=== PATIENT | female | born 1935 | race Caucasian/White ===

== ENCOUNTER 2017-06-02 13:01 | Inpatient (IN) | payer OTHER, MEDICARE ==
[~2017-06-02] VITALS: Ht 154.9 cm; Wt 47.6 kg
--- NOTE | ~2017-06-02 | HC ---
[facility] [place] [address] CONSULTATION Name: CONSTANTINO LAIRD Room #: 428-P ADM IN M.R.#: [id number] Admission: 06/02/17 Attend Phys: Faustino Stapleton MD Discharge: Date of : 33 Report #: [id number] THIS REPORT FOR: //name// CC: Faustino Baird DATE OF SERVICE: 06/02/2017 PRIMARY CARE PHYSICIAN: Dr. Samuel Baird. REFERRAL PHYSICIAN: Dr. Faustino Stapleton. REASON FOR REFERRAL: Pneumonia and lung mass. HISTORY OF PRESENT ILLNESS: The patient is an 81-year-old white female who presents to the Emergency Room with progressive dyspnea. Subsequent evaluation revealed a right upper lobe infiltrate and lung density. A pulmonary consultation was requested. The patient is normally followed longitudinally by Dr. Mckeon. She is followed for COPD. The patient was in her usual state of health for the past few days, she has had increasing dyspnea on exertion, facial numbness. While in the emergency room, a CT chest angiogram was performed. This study did not show any evidence of pulmonary embolus; however, a 3 cm right upper lobe density was noted along with mild infiltrates around the density. The patient also notes weight loss over the past few months. She does not know how much. Otherwise, denies any night sweats, fever or chills, chest pain or productive cough. PAST MEDICAL HISTORY: Notable for COPD, lupus, hypertension, coronary artery disease, status post stent, history of neuropathy. PAST SURGICAL HISTORY: Include prior cataract surgery, appendectomy. ALLERGIES: Are to PENICILLIN, which causes hives, LYRICA reactions unknown, SULFA, reactions unknown, ADHESIVE TAPES causes erythema. HOME MEDICATIONS: Lists are reviewed. This includes nebulized albuterol, aspirin, nebulized Brovana twice a day, ProAir, nebulized Pulmicort twice a day, Spiriva once a day. FAMILY HISTORY: Noncontributory. [facility] [address] [place] [address] CONSULTATION Name: CONSTANTINO LAIRD Room #: 428-[facility] IN .R.#: [id number] Admission: 06/02/17 Attend Phys: Faustino Stapleton MD Discharge: Date of : 33 Report #: [id number] SOCIAL HISTORY: The patient has smoked most of her life until recently. She denies any alcohol use. REVIEW OF SYSTEMS: As mentioned above, otherwise 10-point system review negative. PHYSICAL EXAMINATION: GENERAL: She is awake, alert, in mild respiratory distress. VITAL SIGNS: Temperature is 98 degrees Fahrenheit, pulse is 100, respiratory rate is 18, blood pressure 142/70 mmHg, and saturation is 96%. HEENT: Normocephalic, atraumatic. NECK: Supple, without any lymphadenopathy or thyromegaly. CHEST: Breath sounds are fair with mild expiratory wheezes with few scattered crackles in the bases. CARDIOVASCULAR: Normal S1, S2. There is no murmurs or gallop. There is no JVD. There is no carotid bruit. Pulses are 2+/4+ bilaterally. ABDOMEN: Soft, nontender, no organomegaly or masses felt. GENITOURINARY: Deferred. RECTAL: Deferred. EXTREMITIES: There is no edema, cyanosis or clubbing. LABORATORY DATA: CT chest as mentioned above showing a 3 cm mass-like interstitial infiltrates with mild infiltrates surrounding the area located in the right upper lobe. No evidence of pulmonary embolus. Mediastinum appears to be unremarkable. MRI of the head was unremarkable other than mild to moderate chronic small vessel ischemic changes. EKG was unremarkable. Electrolytes are normal. Liver function test is mildly elevated. WBC is 13,300 without a left shift, hemoglobin 12.2, platelets are normal. Albumin 3.3. IMPRESSION: 1. Progressive dyspnea in this 81-year-old white female. CT chest shows density in the right upper lobe , mild infiltrates. She has underlying COPD. Etiology is likely related to underlying chronic obstructive pulmonary disease with exacerbation with possible pneumonia. The chest CT also shows findings concerning for lung mass. 2. COPD, severity unknown. She appears to have mild exacerbation at this time. 3. Right upper lobe density, weight loss in this patient with long history of tobacco use. Will need further workup when she is stable. 4. History of lupus. 5. Coronary artery disease. 6. Hypertension. RECOMMENDATION AND DISCUSSION: I agree with current treatment plans including broad spectrum antibiotics, bronchodilators and corticosteroids. [address] [address] CONSULTATION Name: CONSTANTINO LAIRD Room #: 428-P ADM IN M.R.#: [id number] Admission: 06/02/17 Attend Phys: Faustino Stapleton MD Discharge: Date of : 33 Report #: [id number] For now, I would recommend treating for presumed pneumonia. Would then recommend followup chest CT in approximately 2 weeks. If the abnormality persist, will proceed with workup at that time. This can be done as an outpatient. Discussed the above findings with the patient. She voices understanding. Thank you for this consultation. <ELECTRONICALLY SIGNED> By: Manuelito Harper MD 06/06/17 1418 1722 99 Manuelito Harper MD /nt
--- NOTE | ~2017-06-02 | EKG ---
[address] [address] ELECTROCARDIOGRAM REPORT Name: CONSTANTINO LAIRD Room #: 428-[facility] IN M.R.#: [id number] Admission: 06/02/17 Attend Phys: Faustino Stapleton MD Discharge: 06/08/17 Date of : 33 Report #: [id number] THIS REPORT FOR: //name// [facility] Test Date: 2017-06-07 Test Time: 06:34:37 Pat Name: CONSTANTINO LAIRD Department: Room: 428 Gender: F Countersinker: : 1935 Requested By: Rosette Frazier Order Number: [id number] MD: Greg Worrell Measurements Intervals [place] Rate: 83 P: 67 TN: 66 QRS: 60 QRSD: 112 T: 55 QT: 372 QTc: 437 Interpretive Statements Sinus rhythm Short TN interval Compared to ECG 06/02/2017 13:35:17 Sinus rhythm is replaced atrial fibrillation Electronically Signed On 06-08-2017 18:12:38 CDT by Greg Worrell [email or web address] <ELECTRONICALLY SIGNED> By: Greg Worrell MD, [facility] 06/08/17 1812 0634 Greg Worrell MD, [facility] /EPI
--- NOTE | ~2017-06-02 | EKG ---
[address] [address] ELECTROCARDIOGRAM REPORT Name: CONSTANTINO LAIRD Room #: 428-P ADM IN M.R.#: [id number] Admission: 06/02/17 Attend Phys: Faustino Stapleton MD Discharge: Date of : 33 Report #: [id number] THIS REPORT FOR: //name// [facility] ED Test Date: 2017-06-02 Test Time: 13:35:17 Pat Name: CONSTANTINO LAIRD Department: Room: [facility] Gender: F Content Coordinator: BERNARDO : 1935 Requested By: Jay Pleitez Order Number: [id number] MD: Greg Worrell Measurements Intervals [place] Rate: 106 P: 60 NH: 114 QRS: 70 QRSD: 90 T: 40 QT: 327 QTc: 435 Interpretive Statements Sinus tachycardia Otherwise no significant abnormality Compared to ECG 09/04/2016 11:08:41 No significant change was found Electronically Signed On 06-03-2017 8:31:51 CDT by Greg Worrell [email or web address] <ELECTRONICALLY SIGNED> By: Greg Worrell MD, [facility] 06/03/17 0831 1335 Greg Worrell MD, [facility] /EPI
--- NOTE | ~2017-06-02 | EKG ---
[address] [address] ELECTROCARDIOGRAM REPORT Name: CONSTANTINO LAIRD Room #: 428-P ADM IN M.R.#: [id number] Admission: 06/02/17 Attend Phys: Faustino Stapleton MD Discharge: Date of : 33 Report #: [id number] THIS REPORT FOR: //name// [facility] Test Date: 2017-06-06 Test Time: 12:48:56 Pat Name: CONSTANTINO LAIRD Department: Room: 428 Gender: F Mail Messenger: INGA : 1935 Requested By: Faustino Stapleton Order Number: [id number] MD: Greg Worrell Measurements Intervals [place] Rate: 108 P: MT: QRS: 46 QRSD: 98 T: 15 QT: 308 QTc: 413 Interpretive Statements Atrial fibrillation Compared to ECG 06/02/2017 13:35:17 Sinus tachycardia no longer present Electronically Signed On 06-07-2017 8:48:38 CDT by Greg Worrell [email or web address] <ELECTRONICALLY SIGNED> By: Greg Worrell MD, [facility] 06/07/17 0848 1248 1248 Greg Worrell MD, [facility] /EPI
--- NOTE | ~2017-06-02 | HC ---
[facility] [address] CONSULTATION Name: CONSTANTINO LAIRD Room #: 428-P ADM IN M.R.#: [id number] Admission: 06/02/17 Attend Phys: Faustino Stapleton MD Discharge: Date of : 33 Report #: [id number] THIS REPORT FOR: //name// CC: Faustino Baird HISTORY OF PRESENT ILLNESS: The patient is a very pleasant 81-year-old female who I have been asked to see for further evaluation of solid dysphagia. She presented to the hospital with progressive dyspnea and was found to have a pulmonary mass and pneumonia. She is not on oxygen now and is doing well. She describes significant difficulty swallowing over the course of the last 3-4 weeks. She denies significant gastroesophageal reflux symptoms. She has had some new constipation. She has not had an upper endoscopy for over 20 years and has never had a colonoscopy. PAST MEDICAL HISTORY: Notable for COPD, lupus, hypertension, coronary artery disease and neuropathy. PAST SURGICAL HISTORY: She has had cataract surgery and appendectomy. ALLERGIES: She is allergic to PENICILLIN, LYRICA, SULFA, ADHESIVE TAPES. MEDICATIONS: Are detailed in the chart. FAMILY HISTORY: Noncontributory. SOCIAL HISTORY: Noncontributory. She is a lifelong smoker. REVIEW OF SYSTEMS: Negative for weakness or fatigue. She denies head, eyes, ears, nose or throat complaints. Denies chest pain, chest palpitation, chest pressure, cough, shortness of breath, wheezing, genitourinary, musculoskeletal or neuropsychiatric complaints otherwise. PHYSICAL EXAMINATION: GENERAL: The patient is afebrile. VITAL SIGNS: Stable. HEENT: Nonicteric. NECK: No JVD, thyromegaly or bruits. CARDIOVASCULAR: Regular. LUNGS: Diminished breath sounds throughout with right apical wheezing and diminished breath sounds. ABDOMEN: Soft, nondistended, nontender, normoactive bowel sounds. No hepatosplenomegaly. No stigmata of chronic liver disease. No abnormal masses or bruits. RECTAL: Not performed. NEUROLOGIC: Not performed. EXTREMITIES: Not performed. [facility] [address] [place] [address] CONSULTATION Name: CONSTANTINO LAIRD Room #: 428-P [facility] IN M.R.#: [id number] Admission: 06/02/17 Attend Phys: Faustino Stapleton MD Discharge: Date of : 33 Report #: [id number] LABORATORY DATA: Pertinent labs were reviewed and include white count 13.3, hemoglobin 12.2, MCV and RDW are normal, platelet count 343. INR is normal. Serum chemistry notable for glucose 166. Liver tests have not been evaluated. IMAGING STUDIES: X-ray reveals right upper lobe mass versus infiltrate. CT confirmed this with suspicion of mass. In summary, the patient has progressive dysphagia, most likely structural in origin. We will proceed with upper endoscopy on Tuesday. I appreciate the opportunity to participate in her care. <ELECTRONICALLY SIGNED> By: Ravin Crandall MD 06/05/17 1241 1202 1228 Ravin Crandall MD /nt
[2017-06-02 13:01] VITALS: BP 123/60
[~2017-06-02 13:01] MED LIST: ACETAMINOPHEN325 M1 PO; ALBUTEROL2.5 MG/0.1 INH; ALEVE220 M1 PO; ALEVE220 MG PO; ASPIRIN EC81 M1 PO; ASPIRIN81 M2 PO; B-100 COMPLEX1 EAC1 PO; BENADRYL25 MG PO; BROVANA15 MCG/2 M INH; BUBBLES THE FI1 EAC1 MC; BUDESONIDE0.5 MG/2 M IH; CALCIUM 500+D1 EAC2 PO; CALCIUM 600 +1 EAC1 PO; COLACE100 MG PO; COQ-10100 MG PO; CYMBALTA60 MG PO; DIOVAN HCT 3201 EAC1 PO; DIOVAN320 MG PO; DOXYCYCLINE 10100 MG PO; FISH OIL 1,0001 EAC5 PO; FLAGYL500 MG PO; FLAX SEED OIL1000 MG PO; FOLIC ACID1 MG PO; GARLIC OIL1 EAC1 PO; GARLIC OIL1 EACH PO; HYDROCODON-ACE1 EAC7 PO; KLOR-CON 1010 MEQ PO; LEVAQUIN 500 M500 M1 PO; LEVAQUIN 500 M500 M2 PO; LIPITOR80 MG PO; MAGNESIUM250 M1 PO; MEDROLDOSEPACK PO; MUCINEX600 MG PO; NORCO 5-325 TA1 EACH PO; NORVASC 5 MG TAB5 MG PO; NORVASC5 MG PO; PEPCID AC20 MG PO; PLAVIX 75 MG TA75 M1 PO; PREDNISONE 10 M10 M1 PO; PREDNISONE 10 M10 MG PO; PREDNISONE 20 M20 M1 PO; PREDNISONE 20 M20 MG PO; PROAIR HFA8.5 GM INH; PULMICORT1 MG/2 ML INH; ROBAXIN 750 MG750 M1 PO; SINGULAIR 10 MG10 M1 PO; SPIRIVA INH; TOBRADEX EYE DRO5 ML OP; TOPROL XL25 MG PO; TRAMADOL 50 MG50 MG PO; TUSSIONEX PENNKI1 ML GT; VENTOLIN17 GM INH; VIBRAMYCIN 100100 MG PO; VITAMIN E100 UNI2 PO; VITAMINC500 PO; ZOFRAN ODT4 MG PO
[2017-06-02 13:35] LABS: HEMATOCRIT 37.1 % (37.0-47.0); HEMOGLOBIN 12.2 gm/dL (12.0-15.0); MCH 27.3 pg (26.0-34.0); MCHC 32.8 g/dL (28.0-37.0); MCV 83.3 fL (80.0-100.0); PLATELET COUNT 343 thou/uL (150-400); RBC 4.46 mil/uL (4.20-5.00); RDW 14.1 % (10.5-14.5); WBC 13.3 thou/uL (4.0-11.0)
[2017-06-02 13:36] LABS: MANUAL DIFF YES
[2017-06-02 13:46] LABS: CALCIUM 9.1 mg/dL (8.5-10.1); CREATININE 0.6 mg/dL (0.6-1.0); POTASSIUM 4.1 mmol/L (3.5-5.1)
[2017-06-02 13:48] LABS: PROTIME 10.4 Seconds (9.3-11.4)
[2017-06-02 13:55] LABS: ALBUMIN 3.3 g/dL (3.4-5.0); TOTAL BILIRUBIN 0.4 mg/dL (<0.1-1.0); TOTAL PROTEIN 6.6 g/dL (6.4-8.2); TROPONIN-I 0.1 ng/mL (<0.04-0.07)
[2017-06-02 14:23] LABS: PLATELET ESTIMATE NORMAL; TOTAL CELL COUNT 100
[2017-06-02] MEDS ORDERED: GABAPENTIN 100100 MG PO (14:34)
[2017-06-02 16:13] VITALS: BP 142/70
[2017-06-02 17:37] VITALS: BP 142/70
[2017-06-02 19:30] VITALS: BP 131/60
[2017-06-03 04:00] VITALS: BP 134/68
[2017-06-03 06:06] LABS: HEMATOCRIT 33.7 % (37.0-47.0); MCH 27.3 pg (26.0-34.0); MCHC 32.7 g/dL (28.0-37.0); MCV 83.5 fL (80.0-100.0); RBC 4.03 mil/uL (4.20-5.00); RDW 14.5 % (10.5-14.5); WBC 8.9 thou/uL (4.0-11.0)
[2017-06-03 06:38] LABS: CALCIUM 8.5 mg/dL (8.5-10.1); CREATININE 0.6 mg/dL (0.6-1.0); POTASSIUM 4.3 mmol/L (3.5-5.1)
[2017-06-03 07:34] VITALS: BP 141/78
[2017-06-03 15:10] LABS: URINE BILIRUBIN NEGATIVE (Negative); URINE BLOOD 1+ (Negative); URINE COLOR YELLOW; URINE GLUCOSE-RANDOM* NEGATIVE (Negative); URINE KETONES TRACE (Negative); URINE NITRITE NEGATIVE (Negative); URINE PROTEIN (DIPSTICK) NEGATIVE (Negative); URINE SPECIFIC GRAVITY <= 1.005 (1.003-1.035); URINE UROBILINOGEN 0.2 E.U./dl (0.2-1.0)
[2017-06-03 15:30] LABS: BACTERIA None Seen /HPF (None Seen); CASTS None Seen /LPF (None Seen); CRYSTALS None Seen /LPF (None Seen); SQUAMOUS None Seen /LPF (0-3); URINE RBC 0-2 Rare /HPF (0-2); URINE WBC None Seen /HPF (0-5)
[2017-06-03 16:08] VITALS: BP 131/62
[2017-06-03 19:52] VITALS: BP 148/80
[2017-06-04 02:06] VITALS: BP 148/80
[2017-06-04 04:15] VITALS: BP 153/80
[2017-06-04 08:25] VITALS: BP 151/72
[2017-06-04 16:33] VITALS: BP 131/74
[2017-06-04 19:44] VITALS: BP 128/71
[2017-06-04 22:31] VITALS: BP 128/71
[2017-06-05 03:41] VITALS: BP 144/79
[2017-06-05 07:27] VITALS: BP 157/80
[2017-06-05 15:11] VITALS: BP 144/84
[2017-06-05 18:30] VITALS: BP 150/81
[2017-06-06 04:55] VITALS: BP 158/88
[2017-06-06 08:15] VITALS: BP 149/80
[2017-06-06 08:26] LABS: HEMATOCRIT 35.5 % (37.0-47.0); HEMOGLOBIN 11.6 gm/dL (12.0-15.0); MANUAL DIFF YES; MCHC 32.8 g/dL (28.0-37.0); MCV 82.2 fL (80.0-100.0); PLATELET COUNT 368 thou/uL (150-400); RBC 4.31 mil/uL (4.20-5.00); RDW 14.2 % (10.5-14.5)
[2017-06-06 08:32] LABS: CALCIUM 8.4 mg/dL (8.5-10.1); CREATININE 0.6 mg/dL (0.6-1.0); MAGNESIUM 1.9 mg/dL (1.8-2.4); POTASSIUM 3.6 mmol/L (3.5-5.1)
[2017-06-06 08:55] LABS: ABSOLUTE NEUTROPHILS 12.5 thou/uL (1.4-8.2); TOTAL CELL COUNT 100
[2017-06-06 08:56] LABS: ANISOCYTOSIS SLIGHT; OVALOCYTES FEW; POIKILOCYTOSIS SLIGHT
[2017-06-06 15:50] VITALS: BP 128/71
[2017-06-06 21:15] VITALS: BP 14/84
[2017-06-07 03:17] VITALS: BP 148/60
[2017-06-07 05:41] LABS: HEMATOCRIT 37.3 % (37.0-47.0); HEMOGLOBIN 12.3 gm/dL (12.0-15.0); MCH 27.2 pg (26.0-34.0); MCHC 32.8 g/dL (28.0-37.0); MCV 82.8 fL (80.0-100.0); PLATELET COUNT 369 thou/uL (150-400); RBC 4.51 mil/uL (4.20-5.00); RDW 14.6 % (10.5-14.5); WBC 14.9 thou/uL (4.0-11.0)
[2017-06-07 05:42] LABS: MANUAL DIFF YES
[2017-06-07 05:48] LABS: CALCIUM 7.9 mg/dL (8.5-10.1); CREATININE 0.6 mg/dL (0.6-1.0); MAGNESIUM 1.6 mg/dL (1.8-2.4); POTASSIUM 3.1 mmol/L (3.5-5.1)
[2017-06-07 07:41] VITALS: BP 151/70
[2017-06-07 07:49] LABS: ABSOLUTE NEUTROPHILS 13.9 thou/uL (1.4-8.2); TOTAL CELL COUNT 100
[2017-06-07 07:51] LABS: ANISOCYTOSIS SLIGHT; OVALOCYTES OCCASIONAL; POIKILOCYTOSIS SLIGHT
[2017-06-07] MEDS ORDERED: METOPROLOL SUCC50 MG PO (12:56)
[2017-06-07 16:27] VITALS: BP 159/88
[2017-06-07 20:56] VITALS: BP 129/67
[2017-06-08 04:00] VITALS: BP 161/85
[2017-06-08 08:08] VITALS: BP 150/81
[2017-06-08] MEDS ORDERED: ELIQUIS2.5 MG PO (08:45)
[2017-06-08] MEDS ORDERED: LEVAQUIN 500 M500 M1 PO (08:45)
[2017-06-08] MEDS ORDERED: PACERONE 200 M200 M1 PO (08:45)
[2017-06-08 13:02] VITALS: BP 150/81
== END 2017-06-08 17:34 | disposition home or self-care (01) | DRG 189 ==
LOC: ER 13:01 → 4E 16:21
PROVIDERS: Internal Medicine; Nurse Practitioner; Physician Assistant
PROC: 0DJ08ZZ Inspection of Upper Intestinal Tract, Via Natural or Artificial Opening Endoscopic (ICD-10-PCS; principal; 2017-06-06)
DX: J96.01 Acute respiratory failure with hypoxia (principal); J18.9 Pneumonia, unspecified organism; E43 Unspecified severe protein-calorie malnutrition; J44.1 Chronic obstructive pulmonary disease with (acute) exacerbation; B37.0 Candidal stomatitis; J44.0 Chronic obstructive pulmonary disease with (acute) lower respiratory infection; Z68.1 Body mass index [BMI] 19.9 or less, adult; L93.0 Discoid lupus erythematosus; I10 Essential (primary) hypertension; Z96.1 Presence of intraocular lens; E83.42 Hypomagnesemia; I25.10 Atherosclerotic heart disease of native coronary artery without angina pectoris; R13.10 Dysphagia, unspecified; E78.5 Hyperlipidemia, unspecified; I71.4 Abdominal aortic aneurysm, without rupture; E78.00 Pure hypercholesterolemia, unspecified; I48.0 Paroxysmal atrial fibrillation; I73.9 Peripheral vascular disease, unspecified; Z95.5 Presence of coronary angioplasty implant and graft; Z98.41 Cataract extraction status, right eye; Z90.49 Acquired absence of other specified parts of digestive tract; Z79.899 Other long term (current) drug therapy; Z88.0 Allergy status to penicillin; Z88.2 Allergy status to sulfonamides; Z88.8 Allergy status to other drugs, medicaments and biological substances; Z87.891 Personal history of nicotine dependence; Z82.49 Family history of ischemic heart disease and other diseases of the circulatory system; Z99.81 Dependence on supplemental oxygen
CPT/HCPCS: 10183; 62110; 62900; 70005

== ENCOUNTER 2017-06-14 12:19 | Inpatient (IN) | payer OTHER, MEDICARE ==
[~2017-06-14] VITALS: Ht 154.9 cm; Wt 50.6 kg
--- NOTE | ~2017-06-14 | P ---
[facility] [place] [address] PROCEDURE REPORT Name: CONSTANTINO LAIRD Room #: 464-P [facility] IN M.R.#: [id number] Admission: 06/14/17 Attend Phys: Maricruz Rosenberg Discharge: Date of : 33 Report #: [id number] THIS REPORT FOR: //name// CC: Maricruz Baird MD BRIEF HISTORY: The patient is an 81-year-old woman with history of dysphagia. She does have a history of systemic lupus erythematosus. She had been previously evaluated with an upper endoscopy and no strictures were seen. A video swallow revealed difficulty with passing food through the upper esophageal sphincter. It is noted she has had neck surgery and hardware in her neck, which potentially maybe impinging on the esophagus. PREOPERATIVE DIAGNOSIS: Persistent dysphagia. POSTOPERATIVE DIAGNOSIS: Dysphagia. MEDICATIONS: Deep sedation with propofol per anesthesia. SPECIMEN: None. ESTIMATED BLOOD LOSS: None. PROCEDURE: EGD and Olivera dilation of the esophagus. FINDINGS: Prior to propofol sedation, procedure of upper endoscopy and dilation were discussed with the patient as well as potential risks, benefits, and complications. She indicates she understands and desires to proceed. With the patient in left lateral decubitus position, the [employer] video endoscope was inserted in the cervical esophagus under direct vision without difficulty. Examination of this organ through its entire length revealed normal esophageal mucosa, specifically I could not see any impingement on the esophagus in particular in the region of the cricopharyngeus of the upper esophagus. No extrinsic effect was noted. Examination of the esophagus through its entire length revealed normal mucosa. The squamocolumnar junction was inspected and noted to be unremarkable. No strictures or mass lesions were seen. A significant hiatus hernia was not seen. The scope was advanced into the stomach, which was examined on end view as well as retroflexed views. No mucosal abnormalities were seen. Upon retroflexion, no mass lesions were seen. The pylorus, duodenal bulb, and postoperative sweep were all inspected and noted to be unremarkable. At that point, the scope was slowly withdrawn and careful circumferential views confirmed the above findings. The patient tolerated the procedure well. We subsequently dilated the patient initially with passage of 50-[place] Olivera [facility] [address] [place] [address] PROCEDURE REPORT Name: CONSTANTINO LAIRD Room #: 464-[facility] IN .R.#: [id number] Admission: 06/14/17 Attend Phys: Maricruz Rosenberg Discharge: Date of : 33 Report #: [id number] dilator. There was no resistance. We took a second look with the scope and no mucosal abnormalities were seen in particular no tearing was seen. We then passed a 52 Olivera dilator and again took another look and no mucosal abnormalities were seen. There was no evidence of mucosal tearing. We then did the same with a 54 and took another look and again no mucosal tears were seen. The dilator was passed with relative ease. It was felt that this should be an adequate point of dilation for the patient. Scope was withdrawn. The patient tolerated the procedure well. DISPOSITION: The patient with persistent dysphagia and on video swallow appears to be have difficult with upper esophageal sphincter, dilation was suggestive. She had a Dobhoff tube at this point in time. We will follow up with the patient. We will have her resume her diet. If she continues to have difficulty, further evaluation such as esophageal manometry and potentially even supportive care with a PEG tube placement may be needed. <ELECTRONICALLY SIGNED> By: Stephen Gutierrez MD 06/21/17 1547 1145 1314 Stephen Gutierrez MD /nt
--- NOTE | ~2017-06-14 | HC ---
[facility] [place] [address] CONSULTATION Name: CONSTANTINO LAIRD Room #: 464-P ADM IN M.R.#: [id number] Admission: 06/14/17 Attend Phys: Maricruz Rosenberg Discharge: Date of : 33 Report #: [id number] THIS REPORT FOR: //name// CC: Maricruz Rosenberg Samuel Box DATE OF SERVICE: 06/21/2017 HISTORY OF PRESENT ILLNESS: The patient is an 81-year-old white female with history of COPD, lupus, hypertension, admitted with swallowing problems, numbness both sides of her face. She was thought to have aspiration pneumonia. Workup revealed a 3 cm right upper lobe mass. CT of the head was negative. She does have atrial fibrillation. She was noted to have dysphagia and an esophageal stricture and underwent EGD with dilatation on June 20. She feels that the dilatation has helped her swallowing. She was noted to initially have syncope upon admission, was thought to have syncope probably secondary to sepsis. She had paroxysmal atrial fibrillation, ibwkp-ha-rxwfvnl respiratory failure. She has severe protein-calorie malnutrition and did have the Dobhoff initially prior to the EGD with dilatation. She has medical complexity with generalized debilitation and we are seeing her in rehabilitation medicine consultation. PAST MEDICAL HISTORY: Includes lupus, hypertension, cardiac stent, neuropathy, abdominal aortic aneurysm, hyperlipidemia, COPD. PAST SURGICAL HISTORY: Tonsillectomy, tubal ligation, appendectomy. MEDICATIONS: Please see the full medication listing. HABITS: Former smoker, quit greater than a year ago. Past history of ETOH usage. SOCIAL HISTORY: House, alone, 2 steps in, 4 inside. ALLERGIES: PENICILLIN, PREGABALIN, SULFA. REVIEW OF SYSTEMS: Feels that her swallowing is improved. No current complaints of chest pain, shortness of breath or abdominal discomfort. She has some decreased distal sensation consistent with her neuropathy. PHYSICAL EXAMINATION: GENERAL: An 81-year-old slender white female in no obvious distress. VITAL SIGNS: Last recorded temperature is 98.1, pulse 98, respirations 16, blood pressure 108/55. Two 2 liters nasal prong O2. NEUROLOGIC: Facies are symmetric. Functional range of motion of both upper extremities, strength is grade 4- to 3+/5, DTRs are trace to 1. [address] [address] CONSULTATION Name: CONSTANTINO LAIRD Room #: 464[facility] IN M.R.#: [id number] Admission: 06/14/17 Attend Phys: Maricruz Rosenberg Discharge: Date of : 33 Report #: [id number] extremities, no focal calf swelling, functional range of motion strength is grade 4-/5. Tone appeared to be intact. She has decreased distal sensation of her distal lower extremities. She is sit to stand, contact guard assistance. She has been utilizing 4 liters while up with therapy. Gait has been up to 130 feet contact guard with front-wheeled walker. She does need min assist to get off the low toilet per OT. ASSESSMENT: An 81-year-old white female with the following problems: 1. Medical complexity with generalized debilitation. 2. Syncope secondary to probable sepsis. 3. Dtjpj-iz-oimiidq respiratory failure. 4. Paroxysmal atrial fibrillation. 5. Lung mass with Pulmonary following. 6. Severe protein calorie malnutrition with dysphagia, now status post EGD with dilatation, June 20. 7. Hypertension. 8. Hypercholesterolemia. 9. Abdominal aortic aneurysm. PLAN: Therapies are working with her on trying to maximize her functional independence with mobility and ADLs. We are assessing her for a potential acute in-hospital inpatient rehabilitation stay. We will continue to follow with you. Thank you for asking us to assist in this patient's care. By: 1056 1155 Kt Avery MD /nt
--- NOTE | ~2017-06-14 | HC ---
[facility] [place] [address] CONSULTATION Name: CONSTANTINO LAIRD Room #: 464-P ADM IN M.R.#: [id number] Admission: 06/14/17 Attend Phys: Maricruz Rosenberg Discharge: Date of : 33 Report #: [id number] THIS REPORT FOR: //name// CC: Maricruz Rosenberg Samuel Box REASON FOR CONSULTATION: I was asked to evaluate concerning syncopal episode and right lung pulmonary infiltrate. HISTORY OF PRESENT ILLNESS: The patient is an 81-year-old with COPD, systemic lupus erythematosus and hypertension. She was hospitalized this past week with right upper lobe pulmonary infiltrate. She has esophageal stenosis and it was suspected that she had aspirated in this region. Unclear if she may have malignancy as well, but the plan was to stabilize the patient and then proceed with EGD for dilatation of her esophagitis. Plan was also to give her antibiotics during this time and to follow up her chest x-rays to see if there is improvement. While at home on Levaquin for her antibiotic coverage, she was taking a shower with home health aide and had a syncopal episode. She felt nauseated and bit lightheaded for several second and then found herself on the bathroom floor. No gross injuries were identified. She was brought into the Emergency Room where O2 saturation was 87% and she was tachycardic. Chest x-ray showed no significant change in the right upper lobe infiltrate. Chest x-ray showed no change in her right upper lobe infiltrate. She was kept on IV antibiotic therapy and transferred to the Intensive Care Unit. Subsequently, she has improved, still only to take liquids spine mouth. She has had cough with clear sputum. No chest pain and no further dysrhythmias identified. ALLERGIES: PENICILLIN, ADHESIVE TAPE, PREGABALIN, SULFA. MEDICATIONS: As noted on her MAR including vancomycin and cefepime. She was on dopamine drip initially, then Levaquin, now off vasopressors. PAST MEDICAL HISTORY: Coronary artery disease, aortic aneurysm, carotid artery disease, hypertension, hyperlipidemia, COPD, paroxysmal atrial fibrillation, cataract extraction, sinus surgery, tonsillectomy. FAMILY HISTORY: Coronary artery disease. SOCIAL HISTORY: Past smoker. No significant alcohol intake. REVIEW OF SYSTEMS: She denies any other , joint or skin issues. PHYSICAL EXAMINATION: VITAL SIGNS: Afebrile and hemodynamically stable. She is on 4 liters of oxygen per nasal cannula. GENERAL: She is sitting up in her chair. She had good urine output. She was conversant, alert and oriented. [address] [address] CONSULTATION Name: CONSTANTINO LAIRD Room #: [facility] IN M.R.#: [id number] Admission: 06/14/17 Attend Phys: Maricruz Rosenberg Discharge: Date of : 33 Report #: [id number] HEENT: Unremarkable. NECK: Supple, no adenopathy. LUNGS: Subsequently clear. HEART: Regular, without appreciable murmur, gallop or rub. ABDOMEN: Soft, nontender, no hepatosplenomegaly or mass. EXTREMITIES: No peripheral edema. NEUROLOGIC: Normal. LABORATORY STUDIES: Chest x-ray, right upper lobe pulmonary infiltrate appears more prominent than her last film last week. Sputum culture from June 03 showed normal marcio, I am awaiting cultures today. Sodium 141, potassium 4.0, bicarbonate 30, creatinine 0.4. Hemoglobin 8.8, white count 17.9, platelet count 283,000. IMPRESSION: An 81-year-old with underlying chronic obstructive pulmonary disease, atrial fibrillation, had a syncopal episode, I suspect a component of vasogenic disease considering she was in the shower, became nauseated and lightheaded before her syncopal episode. Still could not yet rule out dysrhythmia. Now with persistent right upper lobe infiltrate with her esophageal stenosis. I would expect this to be an aspiration pneumonia. I have discussed with Pulmonary Medicine and Internal Medicine. PLAN: Will be to continue IV antibiotic therapy and repeat her sputum culture. We will await gastroenterology follow up for esophageal dilatation and proceed from there. We will need repeat imaging within the next several weeks to ensure clearance of this infiltrate. If not, we will need a bronchoscopy with biopsy. <ELECTRONICALLY SIGNED> By: Mu Antoine MD 06/16/17 0823 1256 1337 Mu Antoine MD /nt
--- NOTE | ~2017-06-14 | HC ---
[facility] [place] [address] CONSULTATION Name: CONSTANTINO LAIRD Room #: 464-P ADM IN M.R.#: [id number] Admission: 06/14/17 Attend Phys: Maricruz Rosenberg Discharge: Date of : 31 Report #: [id number] THIS REPORT FOR: //name// CC: Maricruz Baird DATE OF SERVICE: 06/21/2017 ADDENDUM The patient notes the history of peripheral neuropathy was diagnosed approximately [address] Baird in Rheumatology. She does not have a history of diabetes and was told that it was of an uncertain etiology. She was tried on Lyrica, but had problems with an allergic reaction. She has issues with numbness and weakness of both lower extremities with the left little more involved than the right. She also has difficulty with sit to stand transfers, especially from lower surfaces. The patient notes history of O2 dependence for which she utilizes oxygen at night and p.r.n. during the day. With this in mind, would change her initial rehab diagnosis to an idiopathic peripheral neuropathy with medical complexity and generalized debilitation being her second diagnoses. By: [id number] [id number] Kt Avery MD /nt
--- NOTE | ~2017-06-14 | EKG ---
[address] [address] ELECTROCARDIOGRAM REPORT Name: CONSTANTINO LAIRD Room #: 464-P ADM IN M.R.#: [id number] Admission: 06/14/17 Attend Phys: Maricruz Rosenberg Discharge: Date of : 33 Report #: [id number] THIS REPORT FOR: //name// [facility] ED Test Date: 2017-06-14 Test Time: 12:33:29 Pat Name: CONSTANTINO LAIRD Department: Room: 464 Gender: F Intermediate Accountant: [id number] : 1935 Requested By: Nancy Yang Order Number: [id number] MD: Thomas Hamilton Measurements Intervals [place] Rate: 72 P: 58 [place]: 129 QRS: 67 QRSD: 98 T: 64 QT: 431 QTc: 472 Interpretive Statements Sinus rhythm Compared to ECG 06/07/2017 06:34:37 Short [place] interval no longer present Electronically Signed On 06-19-2017 21:41:10 CDT by Thomas Hamilton [email or web address] <ELECTRONICALLY SIGNED> By: Thomas Hamilton MD 06/19/17 2141 1233 1233 Thomas Hamilton MD /DEDRICK
[~2017-06-14 12:19] MED LIST changes: +ELIQUIS2.5 MG PO; +GABAPENTIN 100100 MG PO; +METOPROLOL SUCC50 MG PO; +PACERONE 200 M200 M1 PO
[2017-06-14 12:20] VITALS: BP 119/51
[2017-06-14 12:39] LABS: HEMATOCRIT 30.5 % (37.0-47.0); MCH 27.5 pg (26.0-34.0); MCHC 32.9 g/dL (28.0-37.0); MCV 83.8 fL (80.0-100.0); PLATELET COUNT 325 thou/uL (150-400); RBC 3.64 mil/uL (4.20-5.00); RDW 14.5 % (10.5-14.5); WBC 22.3 thou/uL (4.0-11.0)
[2017-06-14 12:40] LABS: MANUAL DIFF YES
[2017-06-14 12:46] LABS: CALCIUM 8.4 mg/dL (8.5-10.1); CREATININE 0.8 mg/dL (0.6-1.0); POTASSIUM 3.2 mmol/L (3.5-5.1)
[2017-06-14 12:55] LABS: ALBUMIN 2.4 g/dL (3.4-5.0); TOTAL BILIRUBIN 0.6 mg/dL (<0.1-1.0); TOTAL PROTEIN 5.7 g/dL (6.4-8.2); TROPONIN-I 0.05 ng/mL (<0.04-0.07)
[2017-06-14 13:04] LABS: ABSOLUTE NEUTROPHILS 20.5 thou/uL (1.4-8.2); PLATELET ESTIMATE NORMAL; TOTAL CELL COUNT 100
[2017-06-14 14:45] LABS: URINE BILIRUBIN NEGATIVE (Negative); URINE BLOOD NEGATIVE (Negative); URINE COLOR YELLOW; URINE GLUCOSE-RANDOM* NEGATIVE (Negative); URINE KETONES TRACE (Negative); URINE NITRITE NEGATIVE (Negative); URINE PROTEIN (DIPSTICK) 1+ (Negative)
[2017-06-14 14:54] LABS: BACTERIA 1-9 Few /HPF (None Seen); CASTS None Seen /LPF (None Seen); CRYSTALS None Seen /LPF (None Seen); SQUAMOUS 0-3 Few /LPF (0-3); URINE RBC None Seen /HPF (0-2); URINE WBC None Seen /HPF (0-5)
[2017-06-14 17:18] LABS: HEMATOCRIT 26.3 % (37.0-47.0); HEMOGLOBIN 8.7 gm/dL (12.0-15.0)
[2017-06-14 17:29] VITALS: BP 125/53
[2017-06-14 17:48] VITALS: BP 183/128
[2017-06-14 19:05] VITALS: BP 127/56
[2017-06-15 01:11] LABS: ABG SAMPLE TYPE ARTERIAL; BE(vivo) 0.3 mmol/L (-2 to +3); LACTATE 0.78 mmol/L (0.5-2.0); O2(CT) 13.6 mL/dL (15.0-23.0); O2Hb 95.6 % (92.0-98.0); PCO2 40.7 mmHg (35.0-45.0); PO2 93.9 mmHg (80.0-100.0); pH 7.406 (7.360-7.450); sO2 97.2 % (92.0-98.0); tCO2 26.2 mmol/L (24.0-30.0)
[2017-06-15 01:12] LABS: STICK SITE R.BRACHIAL
[2017-06-15 05:31] LABS: HEMATOCRIT 26.9 % (37.0-47.0); HEMOGLOBIN 8.8 gm/dL (12.0-15.0); MCH 27.5 pg (26.0-34.0); MCHC 32.9 g/dL (28.0-37.0); MCV 83.5 fL (80.0-100.0); RBC 3.22 mil/uL (4.20-5.00); WBC 17.9 thou/uL (4.0-11.0)
[2017-06-15 05:38] LABS: CALCIUM 7.5 mg/dL (8.5-10.1); CREATININE 0.4 mg/dL (0.6-1.0)
[2017-06-15 05:41] LABS: PHOSPHORUS 2.8 mg/dL (2.5-4.9)
[2017-06-15 12:00] VITALS: BP 98/49
[2017-06-15 13:00] VITALS: BP 104/49
[2017-06-15 13:30] VITALS: BP 119/48
[2017-06-15 15:37] VITALS: BP 115/47
[2017-06-15 19:02] VITALS: BP 121/68
[2017-06-16 01:08] LABS: HIV ANTIBODY Non Reactive (Non Reactive)
[2017-06-16 05:24] VITALS: BP 115/53
[2017-06-16 06:34] LABS: HEMATOCRIT 23.5 % (37.0-47.0); HEMOGLOBIN 7.7 gm/dL (12.0-15.0); MCH 27.5 pg (26.0-34.0); MCHC 32.9 g/dL (28.0-37.0); MCV 83.6 fL (80.0-100.0); RBC 2.82 mil/uL (4.20-5.00); RDW 14.4 % (10.5-14.5); WBC 15.1 thou/uL (4.0-11.0)
[2017-06-16 06:48] LABS: CREATININE 0.6 mg/dL (0.6-1.0); PHOSPHORUS 2.8 mg/dL (2.5-4.9); POTASSIUM 3.7 mmol/L (3.5-5.1)
[2017-06-16 07:51] VITALS: BP 108/56
[2017-06-16 11:43] VITALS: BP 128/66
[2017-06-16 12:03] LABS: HEMOGLOBIN 8.2 gm/dL (12.0-15.0); MCH 27.6 pg (26.0-34.0); MCV 83.8 fL (80.0-100.0); RBC 2.98 mil/uL (4.20-5.00); RDW 14.4 % (10.5-14.5); WBC 17.3 thou/uL (4.0-11.0)
[2017-06-16 15:48] VITALS: BP 102/56
[2017-06-16 20:17] VITALS: BP 119/52
[2017-06-17 04:31] VITALS: BP 114/58
[2017-06-17 04:39] LABS: HEMATOCRIT 23.1 % (37.0-47.0); HEMOGLOBIN 7.5 gm/dL (12.0-15.0); MCH 27.2 pg (26.0-34.0); MCHC 32.5 g/dL (28.0-37.0); MCV 83.8 fL (80.0-100.0); RBC 2.75 mil/uL (4.20-5.00); RDW 14.3 % (10.5-14.5); WBC 13.7 thou/uL (4.0-11.0)
[2017-06-17 04:45] LABS: CALCIUM 7.9 mg/dL (8.5-10.1); CREATININE 0.5 mg/dL (0.6-1.0); POTASSIUM 3.6 mmol/L (3.5-5.1)
[2017-06-17 07:16] VITALS: BP 125/61
[2017-06-17 12:00] VITALS: BP 115/53
[2017-06-17 15:13] VITALS: BP 119/58
[2017-06-17 18:10] LABS: HISTOPLASMA MYCELIAL-ID Negative (Negative)
[2017-06-17 20:00] VITALS: BP 125/63
[2017-06-17 20:07] LABS: HISTOPLASMA MYCELIAL-CF Negative (Neg:<1:2)
[2017-06-18 04:06] VITALS: BP 120/64
[2017-06-18 07:36] VITALS: BP 125/56
[2017-06-18 11:38] VITALS: BP 137/69
[2017-06-18 15:43] VITALS: BP 123/45
[2017-06-18 19:03] VITALS: BP 127/70
[2017-06-19 03:10] VITALS: BP 123/62
[2017-06-19 08:05] VITALS: BP 122/55
[2017-06-19 16:42] VITALS: BP 135/62
[2017-06-19 20:55] VITALS: BP 119/58
[2017-06-20 04:32] VITALS: BP 105/49
[2017-06-20 08:52] VITALS: BP 106/53
[2017-06-20 15:04] VITALS: BP 106/46
[2017-06-20 16:57] VITALS: BP 105/72
[2017-06-20 20:24] VITALS: BP 118/54
[2017-06-21 06:11] VITALS: BP 123/60
[2017-06-21 10:18] VITALS: BP 108/55
[2017-06-21] MEDS ORDERED: MIRALAX17 GM PO (11:33)
[2017-06-21] MEDS ORDERED: PACERONE 200 M200 M1 PO (11:33)
[2017-06-21] MEDS ORDERED: MAXIPIME 1 GM/D51 G1 IV (11:34)
[2017-06-21 14:52] VITALS: BP 107/52
[2017-06-21 17:02] VITALS: BP 109/56
[2017-06-21 19:46] VITALS: BP 113/57
[2017-06-22 03:44] VITALS: BP 131/58
[2017-06-22 08:55] VITALS: BP 114/53
[2017-06-22 12:16] VITALS: BP 121/55
[2017-06-30] MEDS ORDERED: CEFDINIR300 MG PO (11:38)
== END 2017-06-22 17:50 | DRG 871 ==
LOC: ER 12:19 → EROBS 14:47 → ICU 14:47 → 4W 14:47 → ICU 17:21 → 4W 06-15 13:17
PROVIDERS: Hospitalist; Nurse Practitioner Acute Care; Nurse Practitioner Adult Health; Physician Assistant; Specialist
PROC: 02HV33Z Insertion of Infusion Device into Superior Vena Cava, Percutaneous Approach (ICD-10-PCS; principal; 2017-06-14)
PROC: 0D758ZZ Dilation of Esophagus, Via Natural or Artificial Opening Endoscopic (ICD-10-PCS; 2017-06-20)
DX: A41.9 Sepsis, unspecified organism (principal); J96.20 Acute and chronic respiratory failure, unspecified whether with hypoxia or hypercapnia; J69.0 Pneumonitis due to inhalation of food and vomit; E43 Unspecified severe protein-calorie malnutrition; I10 Essential (primary) hypertension; J44.9 Chronic obstructive pulmonary disease, unspecified; I25.10 Atherosclerotic heart disease of native coronary artery without angina pectoris; I65.29 Occlusion and stenosis of unspecified carotid artery; E78.5 Hyperlipidemia, unspecified; I48.0 Paroxysmal atrial fibrillation; E11.42 Type 2 diabetes mellitus with diabetic polyneuropathy; M32.9 Systemic lupus erythematosus, unspecified; I71.4 Abdominal aortic aneurysm, without rupture; Z60.2 Problems related to living alone; R91.8 Other nonspecific abnormal finding of lung field; E86.0 Dehydration; R13.10 Dysphagia, unspecified; E87.6 Hypokalemia; E11.51 Type 2 diabetes mellitus with diabetic peripheral angiopathy without gangrene; I95.9 Hypotension, unspecified; E78.00 Pure hypercholesterolemia, unspecified; D64.9 Anemia, unspecified; K22.2 Esophageal obstruction; R04.0 Epistaxis; Z79.899 Other long term (current) drug therapy; Z95.5 Presence of coronary angioplasty implant and graft; Z90.49 Acquired absence of other specified parts of digestive tract; Z88.0 Allergy status to penicillin; Z88.2 Allergy status to sulfonamides; Z98.49 Cataract extraction status, unspecified eye; Z82.49 Family history of ischemic heart disease and other diseases of the circulatory system; Z87.891 Personal history of nicotine dependence; Z68.21 Body mass index [BMI] 21.0-21.9, adult
CPT/HCPCS: 10045; 10078; 10196; 27000; 62110; 62900; 70005

== ENCOUNTER 2017-06-22 18:29 | Inpatient (IN) | payer OTHER, MEDICARE | END 2017-07-01 11:42 | disposition home health service (06) | DRG 947 | DX: R53.81 Other malaise (principal); J96.20 Acute and chronic respiratory failure, unspecified whether with hypoxia or hypercapnia; E43 Unspecified severe protein-calorie malnutrition; J69.0 Pneumonitis due to inhalation of food and vomit; J44.1 Chronic obstructive pulmonary disease with (acute) exacerbation; G31.84 Mild cognitive impairment of uncertain or unknown etiology; F41.9 Anxiety disorder, unspecified; I10 Essential (primary) hypertension; E78.5 Hyperlipidemia, unspecified; I71.4 Abdominal aortic aneurysm, without rupture; E78.00 Pure hypercholesterolemia, unspecified; G60.9 Hereditary and idiopathic neuropathy, unspecified; I48.0 Paroxysmal atrial fibrillation; R91.8 Other nonspecific abnormal finding of lung field; R13.10 Dysphagia, unspecified; E87.6 Hypokalemia; I73.9 Peripheral vascular disease, unspecified; M32.9 Systemic lupus erythematosus, unspecified; K22.2 Esophageal obstruction; K22.4 Dyskinesia of esophagus; K59.00 Constipation, unspecified; Z95.5 Presence of coronary angioplasty implant and graft; Z90.49 Acquired absence of other specified parts of digestive tract; Z87.891 Personal history of nicotine dependence; Z88.0 Allergy status to penicillin; Z88.8 Allergy status to other drugs, medicaments and biological substances; Z88.2 Allergy status to sulfonamides; Z68.21 Body mass index [BMI] 21.0-21.9, adult ==

== ENCOUNTER → 2017-07-21 | Outpatient (CLI) | payer OTHER, MEDICARE ==
[~2017-07-21] MED LIST changes: +CEFDINIR300 MG PO; +LOPRESSOR25 PO; +MAXIPIME 1 GM/D51 G1 IV; +MIRALAX17 GM PO
== END ==
LOC: CAT 09:04
DX: R91.8 Other nonspecific abnormal finding of lung field (principal)

== ENCOUNTER 2017-07-25 12:22 | Inpatient (IN) | payer OTHER, MEDICARE ==
[~2017-07-25] VITALS: Ht 154.9 cm; Wt 47.6 kg
--- NOTE | ~2017-07-25 | EKG ---
[address] [address] ELECTROCARDIOGRAM REPORT Name: CONSTANTINO LAIRD Room #: REG [facility]#: [id number] Admission: 07/25/17 Attend Phys: Discharge: Date of : 31 Report #: [id number] THIS REPORT FOR: //name// [facility] ED Test Date: 2017-07-25 Test Time: 12:38:36 Pat Name: CONSTANTINO LAIRD Department: Room: Gender: F Optical Laboratory Mechanic: BIBIANA : 1935 Requested By: Layne Diaz Order Number: [id number] MD: Thomas Hamilton Measurements Intervals [place] Rate: 88 P: 59 [place]: 120 QRS: 74 QRSD: 97 T: 47 QT: 397 QTc: 481 Interpretive Statements Sinus rhythm Ventricular premature complex Compared to ECG 06/14/2017 12:33:29 Ventricular premature complex(es) now present Electronically Signed On 07-25-2017 14:08:33 CDT by Thomas Hamilton [email or web address] <ELECTRONICALLY SIGNED> By: Thomas Hamilton MD 07/25/17 1408 D: [id number] Thomas Hamilton MD /DEDRICK
--- NOTE | ~2017-07-25 | HC ---
[facility] [place] [address] CONSULTATION Name: CONSTANTINO LAIRD Room #: 437-P ADM IN M.R.#: [id number] Admission: 07/25/17 Attend Phys: Tay Barrios MD Discharge: Date of : 33 Report #: [id number] THIS REPORT FOR: //name// CC: Tay Baird INFECTIOUS DISEASES CONSULTATION REASON FOR CONSULTATION: I was asked to evaluate concerning aspiration pneumonia. HISTORY OF PRESENT ILLNESS: The patient is an 81-year-old with atrial fibrillation and recurrent dysphagia. She presents again on 07/25/2017 with syncopal episode. She had more issues with dysphagia now both solids and liquids. Planned to do further studies including esophageal manometry. Today, I was asked to evaluate concerning aspiration right lower lobe pneumonia. The patient has had increased cough with green sputum production. No documented fever, chills or sweats. Her maximum temperature over the last 3 days has been 100.6 degrees. She remains on 3 liters of oxygen per nasal cannula. Denies any hemoptysis or chest pain. ALLERGIES: PENICILLIN with hives. She does tolerate cephalosporins. Also allergic to SULFA, ADHESIVES TAPE, PREGABULIN. MEDICATIONS: As noted on the MAR, which were reviewed. PAST MEDICAL HISTORY, FAMILY HISTORY AND SOCIAL HISTORY: Unchanged from previous consultation and that of the current H and P. REVIEW OF SYSTEMS: No nausea, vomiting, diarrhea, dysuria or frequency. PHYSICAL EXAMINATION: VITAL SIGNS: Afebrile and hemodynamically stable. GENERAL: She was alert and she was cooperative on oxygen per nasal cannula. She was able to take some liquids, which were on her bedside table. HEENT: Unremarkable. NECK: Supple. LUNGS: Few crackles in the right base posteriorly. HEART: Regular without murmur. ABDOMEN: Soft and nontender. LABORATORY STUDIES: Sodium 140, potassium 3.1, bicarbonate 31, creatinine 0.5. Hemoglobin 8.7, white count 14.3, platelet count was 258,000. Chest x-ray showed worsening focal infiltrate in the right lower lobe. She did have some mild interstitial pulmonary infiltrates or edema. Barium swallow showed nonperistaltic tertiary contractions in the mid to distal esophagus. Mild gastroesophageal reflux. [facility] [address] [place] [address] CONSULTATION Name: CONSTANTINO LAIRD Room #: 437-[facility] IN ..#: [id number] Admission: 07/25/17 Attend Phys: Tay Barrios MD Discharge: Date of : 33 Report #: [id number] IMPRESSION AND PLAN: An 81-year-old with recent syncopal episode now aspiration pneumonia with esophageal dysmotility. Would be concerned about nosocomial organisms since her recent hospital stay. She is a methicillin-resistant Staphylococcus aureus negative as of June 14. She has severe allergy to PENICILLIN, but does tolerate cephalosporins. I would recommend starting antibiotics to include both gram-positive and gram-negative coverage. We will use meropenem. Also, obtain sputum culture and sensitivity. She will need followup chest x-ray. Continue with aspiration precaution, measures and speech therapy. Gastroenterology service is following and will continue the workup. <ELECTRONICALLY SIGNED> By: Mu Antoine MD 07/29/17 1204 2032 0403 Mu Antoine MD /nt
[2017-07-25 12:24] VITALS: BP 87/38
[2017-07-25 13:10] LABS: ABSOLUTE NEUTROPHILS 9.4 thou/uL (1.4-8.2); BASOPHILS 0.7 % (0.0-2.0); EOSINOPHILS 0.1 % (0.0-3.0); HEMATOCRIT 32.3 % (37.0-47.0); HEMOGLOBIN 10.4 gm/dL (12.0-15.0); LYMPHOCYTES 14.4 % (24.0-44.0); MCH 25.6 pg (26.0-34.0); MCHC 32.1 g/dL (28.0-37.0); MCV 79.6 fL (80.0-100.0); MONOCYTES 9.2 % (1.0-8.0); PLATELET COUNT 358 thou/uL (150-400); POLYS 75.6 % (36.0-66.0); RBC 4.06 mil/uL (4.20-5.00); RDW 15.8 % (10.5-14.5); WBC 12.4 thou/uL (4.0-11.0)
[2017-07-25 13:19] LABS: ANION GAP 4 mmol/L (7-16); BUN 14 mg/dL (7-18); CALCIUM 8.6 mg/dL (8.5-10.1); CHLORIDE 101 mmol/L (98-107); CO2 29 mmol/L (21-32); CREATININE 0.9 mg/dL (0.6-1.0); GLUCOSE 151 mg/dL (74-106); POTASSIUM 4.2 mmol/L (3.5-5.1); SODIUM 134 mmol/L (136-145)
[2017-07-25 13:22] LABS: MANUAL DIFF NO
[2017-07-25 13:27] LABS: TROPONIN-I < 0.04 ng/mL (<0.04-0.07)
[2017-07-25 15:23] LABS: URINE BLOOD NEGATIVE (Negative); URINE COLOR YELLOW; URINE GLUCOSE-RANDOM* NEGATIVE (Negative); URINE KETONES 1+ (Negative); URINE NITRITE NEGATIVE (Negative); URINE PROTEIN (DIPSTICK) 1+ (Negative); URINE SPECIFIC GRAVITY 1.015 (1.003-1.035); URINE UROBILINOGEN 0.2 E.U./dl (0.2-1.0)
[2017-07-25 15:27] LABS: ICTOTEST (BILI CONFIRMATORY) Negative (Negative); URINE BILIRUBIN NEGATIVE (Negative)
[2017-07-25 15:29] LABS: BACTERIA None Seen /HPF (None Seen); SQUAMOUS >10 Many /LPF (0-3); URINE RBC None Seen /HPF (0-2); URINE WBC None Seen /HPF (0-5)
[2017-07-25 15:30] LABS: CRYSTALS None Seen /LPF (None Seen); HYALINE CASTS 0-3 Few /LPF (None Seen)
[2017-07-25 18:05] VITALS: BP 114/46
[2017-07-25 18:37] VITALS: BP 142/56
[2017-07-25 19:00] VITALS: BP 142/56
[2017-07-26 04:30] VITALS: BP 135/47
[2017-07-26 08:18] VITALS: BP 138/65
[2017-07-26 11:31] LABS: MCH 25.1 pg (26.0-34.0); MCHC 31.3 g/dL (28.0-37.0); MCV 80.1 fL (80.0-100.0); RDW 15.9 % (10.5-14.5); WBC 13.7 thou/uL (4.0-11.0)
[2017-07-26 11:49] LABS: CALCIUM 8.2 mg/dL (8.5-10.1); CREATININE 0.7 mg/dL (0.6-1.0)
[2017-07-26 11:52] LABS: POTASSIUM 3.1 mmol/L (3.5-5.1)
[2017-07-26 15:56] VITALS: BP 130/57
[2017-07-26 20:32] VITALS: BP 155/75
[2017-07-27 04:20] VITALS: BP 138/62
[2017-07-27 05:26] LABS: HEMATOCRIT 30.6 % (37.0-47.0); HEMOGLOBIN 9.7 gm/dL (12.0-15.0); MCH 25.2 pg (26.0-34.0); MCHC 31.7 g/dL (28.0-37.0); MCV 79.4 fL (80.0-100.0); RBC 3.85 mil/uL (4.20-5.00); RDW 15.9 % (10.5-14.5); WBC 14.3 thou/uL (4.0-11.0)
[2017-07-27 05:39] LABS: CALCIUM 7.9 mg/dL (8.5-10.1); CREATININE 0.5 mg/dL (0.6-1.0); POTASSIUM 3.7 mmol/L (3.5-5.1)
[2017-07-27 07:34] VITALS: BP 141/56
[2017-07-27 15:26] VITALS: BP 145/63
[2017-07-27 21:13] VITALS: BP 152/72
[2017-07-28 03:51] VITALS: BP 138/61
[2017-07-28 06:27] LABS: HEMATOCRIT 26.9 % (37.0-47.0); HEMOGLOBIN 8.7 gm/dL (12.0-15.0); MCH 25.3 pg (26.0-34.0); MCHC 32.3 g/dL (28.0-37.0); MCV 78.5 fL (80.0-100.0); RBC 3.43 mil/uL (4.20-5.00); RDW 15.6 % (10.5-14.5); WBC 14.3 thou/uL (4.0-11.0)
[2017-07-28 07:21] LABS: CREATININE 0.5 mg/dL (0.6-1.0); POTASSIUM 3.1 mmol/L (3.5-5.1)
[2017-07-28 08:00] VITALS: BP 146/59
[2017-07-28 16:00] VITALS: BP 129/56
[2017-07-28 20:43] VITALS: BP 155/68
[2017-07-29 04:05] VITALS: BP 140/73
[2017-07-29 06:36] LABS: CALCIUM 7.9 mg/dL (8.5-10.1); CREATININE 0.4 mg/dL (0.6-1.0)
[2017-07-29 07:07] LABS: POTASSIUM 2.8 mmol/L (3.5-5.1)
[2017-07-29 07:33] VITALS: BP 152/70
[2017-07-29 08:36] LABS: HEMATOCRIT 27.2 % (37.0-47.0); HEMOGLOBIN 8.6 gm/dL (12.0-15.0); MCH 25.1 pg (26.0-34.0); MCHC 31.6 g/dL (28.0-37.0); MCV 79.5 fL (80.0-100.0); RBC 3.42 mil/uL (4.20-5.00); RDW 15.6 % (10.5-14.5); WBC 14.9 thou/uL (4.0-11.0)
[2017-07-29 14:00] VITALS: BP 140/57
[2017-07-29 15:12] VITALS: BP 142/60
[2017-07-29 19:37] VITALS: BP 106/70
[2017-07-30 04:34] VITALS: BP 149/66
[2017-07-30 06:22] LABS: HEMATOCRIT 26.4 % (37.0-47.0); HEMOGLOBIN 8.6 gm/dL (12.0-15.0); MCH 25.3 pg (26.0-34.0); MCHC 32.5 g/dL (28.0-37.0); MCV 77.7 fL (80.0-100.0); RBC 3.4 mil/uL (4.20-5.00); RDW 15.5 % (10.5-14.5); WBC 14.2 thou/uL (4.0-11.0)
[2017-07-30 06:30] LABS: CALCIUM 8.1 mg/dL (8.5-10.1); CREATININE 0.4 mg/dL (0.6-1.0)
[2017-07-30 06:34] LABS: POTASSIUM 2.9 mmol/L (3.5-5.1)
[2017-07-30 08:00] VITALS: BP 147/63
[2017-07-30 14:21] LABS: MAGNESIUM 1.9 mg/dL (1.8-2.4); POTASSIUM 3.6 mmol/L (3.5-5.1)
[2017-07-30 16:00] VITALS: BP 130/57
[2017-07-30 19:21] VITALS: BP 134/60
[2017-07-31 03:59] VITALS: BP 117/55
[2017-07-31 08:00] VITALS: BP 124/52
[2017-07-31 16:00] VITALS: BP 117/50
[2017-07-31 19:20] VITALS: BP 135/54
[2017-08-01 03:55] VITALS: BP 136/68
[2017-08-01 08:00] VITALS: BP 152/68
[2017-08-01 10:43] LABS: HEMATOCRIT 30.3 % (37.0-47.0); HEMOGLOBIN 9.3 gm/dL (12.0-15.0); MCH 24.3 pg (26.0-34.0); MCHC 30.8 g/dL (28.0-37.0); MCV 78.9 fL (80.0-100.0); RBC 3.84 mil/uL (4.20-5.00); RDW 16.5 % (10.5-14.5); WBC 17.7 thou/uL (4.0-11.0)
[2017-08-01 10:54] LABS: CALCIUM 8.4 mg/dL (8.5-10.1); CREATININE 0.6 mg/dL (0.6-1.0); POTASSIUM 3.7 mmol/L (3.5-5.1)
[2017-08-01 16:00] VITALS: BP 145/67
[2017-08-01 19:30] VITALS: BP 132/53
[2017-08-02 04:15] VITALS: BP 140/66
[2017-08-02 06:39] LABS: ABSOLUTE NEUTROPHILS 9.4 thou/uL (1.4-8.2); BASOPHILS 0.6 % (0.0-2.0); EOSINOPHILS 0.9 % (0.0-3.0); HEMATOCRIT 24.5 % (37.0-47.0); HEMOGLOBIN 7.8 gm/dL (12.0-15.0); LYMPHOCYTES 9.5 % (24.0-44.0); MCH 24.8 pg (26.0-34.0); MCHC 31.9 g/dL (28.0-37.0); MCV 77.7 fL (80.0-100.0); MONOCYTES 11.9 % (1.0-8.0); POLYS 77.1 % (36.0-66.0); RBC 3.15 mil/uL (4.20-5.00); RDW 15.9 % (10.5-14.5); WBC 12.2 thou/uL (4.0-11.0)
[2017-08-02 06:46] LABS: PLATELET COUNT 486 thou/uL (150-400)
[2017-08-02 06:49] LABS: MANUAL DIFF NO
[2017-08-02 07:01] LABS: ANION GAP < 0 mmol/L (7-16); BUN 16 mg/dL (7-18); CALCIUM 7.9 mg/dL (8.5-10.1); CHLORIDE 102 mmol/L (98-107); CO2 37 mmol/L (21-32); CREATININE 0.5 mg/dL (0.6-1.0); GLUCOSE 144 mg/dL (74-106); SODIUM 137 mmol/L (136-145)
[2017-08-02 07:39] VITALS: BP 119/48
[2017-08-02 15:50] VITALS: BP 133/105
[2017-08-02 19:15] VITALS: BP 137/53
[2017-08-03 04:15] VITALS: BP 141/63
[2017-08-03 06:34] LABS: HEMATOCRIT 27.1 % (37.0-47.0); HEMOGLOBIN 8.7 gm/dL (12.0-15.0); MCH 24.9 pg (26.0-34.0); MCV 77.8 fL (80.0-100.0); RBC 3.48 mil/uL (4.20-5.00); RDW 16.1 % (10.5-14.5); WBC 15.5 thou/uL (4.0-11.0)
[2017-08-03 07:07] LABS: CALCIUM 8.3 mg/dL (8.5-10.1); CREATININE 0.4 mg/dL (0.6-1.0); POTASSIUM 4.1 mmol/L (3.5-5.1)
[2017-08-03 08:00] VITALS: BP 132/54
[2017-08-03] MEDS ORDERED: DUONEB 2.5-0.5 M3 ML INH (11:57)
[2017-08-03] MEDS ORDERED: ACETYLCYST200 MG/1 M INH (12:00)
[2017-08-03] MEDS ORDERED: DOXYCYCLINE 10100 MG PO (12:12)
== END 2017-08-03 15:09 | DRG 177 ==
LOC: ER 12:22 → 4S 14:18 → EROBS 14:18 → 4S 18:04
PROVIDERS: Emergency Medicine; Internal Medicine; Internal Medicine Pulmonary Disease; Nurse Practitioner Family
PROC: 0DH63UZ Insertion of Feeding Device into Stomach, Percutaneous Approach (ICD-10-PCS; principal; 2017-07-29)
DX: J69.0 Pneumonitis due to inhalation of food and vomit (principal); E43 Unspecified severe protein-calorie malnutrition; J96.20 Acute and chronic respiratory failure, unspecified whether with hypoxia or hypercapnia; J44.1 Chronic obstructive pulmonary disease with (acute) exacerbation; Z68.1 Body mass index [BMI] 19.9 or less, adult; M32.9 Systemic lupus erythematosus, unspecified; I10 Essential (primary) hypertension; E78.5 Hyperlipidemia, unspecified; I95.1 Orthostatic hypotension; I48.0 Paroxysmal atrial fibrillation; E86.0 Dehydration; I73.9 Peripheral vascular disease, unspecified; I71.4 Abdominal aortic aneurysm, without rupture; K59.00 Constipation, unspecified; E87.6 Hypokalemia; E83.42 Hypomagnesemia; K22.2 Esophageal obstruction; D64.9 Anemia, unspecified; S00.83XA Contusion of other part of head, initial encounter; X58.XXXA Exposure to other specified factors, initial encounter; S09.90XA Unspecified injury of head, initial encounter; Z90.49 Acquired absence of other specified parts of digestive tract; Z95.5 Presence of coronary angioplasty implant and graft; Z98.49 Cataract extraction status, unspecified eye; Z87.891 Personal history of nicotine dependence; Z98.1 Arthrodesis status; Z79.899 Other long term (current) drug therapy; Z88.0 Allergy status to penicillin; Z88.8 Allergy status to other drugs, medicaments and biological substances; Z88.2 Allergy status to sulfonamides; Z82.49 Family history of ischemic heart disease and other diseases of the circulatory system; Y93.89 Activity, other specified; Y92.89 Other specified places as the place of occurrence of the external cause; Y99.8 Other external cause status
CPT/HCPCS: 10100; 27001; 62110; 62900; 70005

== ENCOUNTER 2017-08-15 19:31 | Inpatient (IN) | payer OTHER, MEDICARE ==
[~2017-08-15] VITALS: Ht 154.9 cm; Wt 48.0 kg
--- NOTE | ~2017-08-15 | HC ---
[facility] [place] [address] CONSULTATION Name: CONSTANTINO LAIRD Room #: 438-P ADM IN M.R.#: [id number] Admission: 08/16/17 Attend Phys: Rolando Jaime MD Discharge: Date of : 33 Report #: [id number] THIS REPORT FOR: //name// CC: Shantanu Jaime REASON FOR CONSULTATION: I was asked to evaluate concerning aspiration pneumonia. HISTORY OF PRESENT ILLNESS: The patient was an 81-year-old with known history of aspiration with a PEG tube in place now. She had been at assisted living, completely n.p.o., receiving fluids and nutrition to her PEG tube that was placed last month. Noticing hemoptysis. No fever, chills or sweats. This is bright red blood. States that she has been taking some food by mouth. When I evaluated the patient, she stated she has had nothing by mouth. ENT evaluation noted some swelling in the hypopharynx but no bleeding source identified. There was concern that her cervical fusion hardware may have eroded. No evidence of hardware was seen on ENT evaluation. Bronchoscopy again showed no evidence of bleeding. Cultures were obtained today from the bronchoscopy. She has been on Eliquis for paroxysmal atrial fibrillation. Previous EGD was in June where she had esophageal dilatation procedure. She had no fever, chills or sweats. No chest pain or shortness of breath. Denied any nausea, vomiting or diarrhea. ALLERGIES: PENICILLIN, ADHESIVE TAPE, PREGABALIN, SULFA. MEDICATIONS: As noted on her MAR, which were reviewed. This included doxycycline. PAST MEDICAL HISTORY, FAMILY HISTORY, SOCIAL HISTORY: Unchanged from previous consultation. PHYSICAL EXAMINATION: VITAL SIGNS: Currently afebrile. Maximum temperature was 37.8, hemodynamically stable. GENERAL: She was alert and cooperative. Just back from her bronchoscopy. HEENT: Unremarkable. NECK: Supple. LUNGS: Extensively clear. HEART: Regular, without murmur. ABDOMEN: Soft. PEG site was unremarkable. LABORATORY DATA: She was on 3 liters of oxygen per nasal cannula. Sodium 138, potassium 4.4, bicarbonate 33, creatinine 0.7. Hemoglobin 8.2, WBC 17.3, platelet count 434,000. Differential unremarkable. Sputum cultures shows many upper respiratory tract marcio. Bronchoscopy cultures are pending. X-ray of the neck, she has unremarkable soft tissues. Cervical spondylosis and postoperative [address] [address] CONSULTATION Name: CONSTANTINO LAIRD Room #: 438-P [facility] IN M.R.#: [id number] Admission: 08/16/17 Attend Phys: Rolando Jaime MD Discharge: Date of : 33 Report #: [id number] change from remote fixation C5 through C7. Chest x-ray, right middle lobe infiltrate, improved from previous study. IMPRESSION: An 81-year-old with hemoptysis associated with leukocytosis, previous PEG tube for dysphagia. Concerned about erosion from her cervical reconstruction. She is anticoagulated. There was no evidence of blood in the pulmonary tract at time of bronchoscopy. Recommend continuing antibiotic coverage for health-care associated aspiration. THE PATIENT IS ALLERGIC TO PENICILLIN but does tolerate cephalosporins. We will await cultures and further workup regarding her bleeding source. <ELECTRONICALLY SIGNED> By: Mu Antoine MD 08/18/17 0943 1206 1323 Mu Antoine MD /nt
--- NOTE | ~2017-08-15 | P ---
[facility] [place] [address] PROCEDURE REPORT Name: CONSTANTINO LAIRD Room #: 438-P ADM IN M.R.#: [id number] Admission: 08/16/17 Attend Phys: Rolando Jaime MD Discharge: Date of : 33 Report #: [id number] THIS REPORT FOR: //name// CC: Shantanu Jaiem MD DATE OF SERVICE: 08/18/2017 PROCEDURE: Diagnostic EGD. patient of: Dr. Rolando Jaime and Dr. Samuel Baird. INDICATION FOR PROCEDURE: We were asked to take a look in this patient's esophagus because of a mysterious appearance of blood in the patient's pharynx and the etiology or source was unclear. ENT examined the patient and did not find a source. Bronchoscopy was done by Dr. Idris Mckeon and he was unable to find a source. So, EGD is being performed to see if we can find a source of the bleeding that was seen 1-2 days ago. Informed consent for this procedure was obtained prior to the administration of any medication. The risks of the procedure, which include bleeding, perforation, infection, complications of sedation and the possibility I could miss something were explained to the patient and she has indicated her consent by signing. Propofol was slowly titrated before and during this procedure for the patient comfort by the anesthesia service. The Shoopn upper videoscope was introduced through the upper esophageal sphincter and advanced under direct visualization to the pylorus. Findings are noted on withdrawal of the scope. I was able to get a good look at the entire esophagus and I saw no abnormalities whatsoever. I did not think there was anything that appeared to be extrinsically pressing on the esophagus either. The stomach appeared normal. There is a PEG bumper in the antrum. The stomach itself appears normal throughout its entirety. I was unable to advance the scope down into the duodenum because the patient developed a laryngospasm and dropped her oxygenation rapidly, so my scope was withdrawn and we bagged her with a bag and masked to aerate her for about a minute and she immediately began breathing on her own again and recovered her oxygenation quickly. Then, I quickly inserted the endoscope back through the patient's mouth and into the esophagus and stomach and took another good look at the stomach and the esophagus and was trying to go down to the duodenum when she once again started to drop her oxygen saturation as I had a good look at her stomach and her esophagus, I did not feel that pushing on to her duodenum or re-intubating her again for EGD was necessary, so the scope was withdrawn, [address] [address] PROCEDURE REPORT Name: CONSTANTINO LAIRD Room #: 438-P ADM IN M.R.#: [id number] Admission: 08/16/17 Attend Phys: Rolando Jaime MD Discharge: Date of : 33 Report #: [id number] oxygenation recovered immediately, we recovered her in the room and she went to the recovery room in stable condition. She tolerated the procedure well except for these episodes of laryngospasm. IMPRESSION: 1. Normal esophagus. 2. Normal stomach, PEG tube bumper visible in the antrum of the stomach. 3. Duodenum not visualized. 4. Development of laryngospasm during this procedure that resolved spontaneously after the scope was removed immediately and bag and mask were used to aerate her. RECOMMENDATIONS: My recommendations are to proceed on to next workup that might include some evaluation of her hardware in her cervical spine. Thank you very much once again for allowing me to participate in her care, Dr. Jaime and Dr. Baird. <ELECTRONICALLY SIGNED> By: Jackie Snow DO 08/18/172007 1452 1926 Jackie Snow DO /nt
--- NOTE | ~2017-08-15 | CNG ---
[facility] [place] [address] CYTO-NONGYN REPORT PROCEDURE Name: CONSTANTINO ESTES Room #: 438-P ADM IN M.R.#: [id number] Admission: 08/16/17 Date of : 31 Discharge: Report #: [id number] Path Case #: [id number] CYTOPATHOLOGY REPORT COLLECTION DATE: 08/17/2017 RECEIVED DATE: 08/17/2017 SUBMITTING PHYS: Dr. Shantanu Mckeon OTHER PHYS: Dr. Rolando Baird CLINICAL HISTORY: Hemoptysis, anticoagulated. SPECIMEN(S) RECEIVED: A.Bronchial wash, NOS * * * * * * * * * * * * FINAL DIAGNOSIS: A. Bronchial wash, NOS: - No malignant cells identified. - Reactive bronchial epithelial cells, alveolar macrophages, and squamous cells present along with marked acute inflammation. PATHOLOGIST: Rita Suggs M.D. REPORT ELECTRONICALLY SIGNED BY: Rita Suggs M.D. DATE/TIME: 08/18/2017 15:10 * * * * * * * * * * * * GROSS PATHOLOGY: A. Bronchial wash, NOS: The specimen is submitted unfixed, labeled "Constantino Estes". Received by the Cytology Department is 10 mL of cloudy pink fluid. One ThinPrep slide was prepared. (clt 08.17.2017) EMPLOYEE RELATION MANAGER(S): RAKESH Ha([facility]) INITIAL CPT CODE(S): A; 60673 Professional services performed by [facility] at [facility] [address], [place] [address] Technical services performed by [facility] at [address] [place] [address]., [address], [place], [place] [address]. [facility] [address] [place] [address], [address] [facility] [address] [place] [address] CYTO-NONGYN REPORT PROCEDURE Name: CONSTANTINO ESTES AMRIT Room #: 438-P ADM IN M.R.#: [id number] Admission: 08/16/17 Date of : 33 Discharge: Report #: [id number] Path Case #: [id number] [place] [address] PHONE: [phone] DIRECTOR: Juan M Hodgson M.D. * * * END OF REPORT * * *
--- NOTE | ~2017-08-15 | P ---
[facility] [place] [address] PROCEDURE REPORT Name: CONSTANTINO LAIRD Room #: 438-P ADM IN M.R.#: [id number] Admission: 08/16/17 Attend Phys: Rolando Jaime MD Discharge: Date of : 33 Report #: [id number] THIS REPORT FOR: //name// CC: Shantanu Jaime DATE OF SERVICE: 08/16/2017 PROCEDURE: Fiberoptic bronchoscopy. INDICATION: Hemoptysis. MEDICATIONS: 100 of fentanyl, 2 of Versed, Romazicon and Narcan. FINDINGS: No endobronchial lesion, mucus pitting was seen as well as yellow mucus coming from right middle lobe. DESCRIPTION OF PROCEDURE: Risks and benefits were discussed with the patient. Meds were titrated. Vocal cords were evaluated and moving appropriately. Bronchoscope was passed and left was examined, no endobronchial lesions. Main lisa was sharp. Mucus pitting was noted. As I was going to pull back and go to right, had decreased mental status and desaturation requiring bagging, Narcan and Romazicon. The patient resumed alertness. Bronchoscopy was completed. No endobronchial lesions seen on the right, but there was mucus pitting as well as right middle lobe yellow mucus noted. After bronchoscope was withdrawn, the patient was awake; however, required subsequent Narcan. I have seen the patient this evening and was stable. By: 1856 MD adonis Blanchard
[~2017-08-15 19:31] MED LIST changes: +ACETYLCYST200 MG/1 M INH; +DUONEB 2.5-0.5 M3 ML INH
[2017-08-15 20:58] LABS: HEMOGLOBIN 8.4 gm/dL (12.0-15.0); MCH 24.2 pg (26.0-34.0); MCHC 31.2 g/dL (28.0-37.0); MCV 77.6 fL (80.0-100.0); PLATELET COUNT 471 thou/uL (150-400); RBC 3.48 mil/uL (4.20-5.00); RDW 17.9 % (10.5-14.5); WBC 15.7 thou/uL (4.0-11.0)
[2017-08-15 20:59] LABS: MANUAL DIFF YES
[2017-08-15 21:01] LABS: CALCIUM 8.9 mg/dL (8.5-10.1); CREATININE 0.6 mg/dL (0.6-1.0); POTASSIUM 4.4 mmol/L (3.5-5.1)
[2017-08-15 21:12] LABS: APTT 25.4 Seconds (24.5-32.8); PROTIME 10.6 Seconds (9.3-11.4)
[2017-08-15 21:20] LABS: ABSOLUTE NEUTROPHILS 13.8 thou/uL (1.4-8.2); TOTAL CELL COUNT 100
[2017-08-15 21:21] LABS: ANISOCYTOSIS 1+; HYPOCHROMASIA 2+; MICROCYTES 2+; OVALOCYTES 1+; POLYCHROMASIA SLIGHT
[2017-08-15 21:22] LABS: SCHISTOCYTES FEW
[2017-08-15 22:15] VITALS: BP 145/58
[2017-08-15 22:56] VITALS: BP 144/80
[2017-08-15 23:28] VITALS: BP 143/67
[2017-08-16 01:50] VITALS: BP 149/53
[2017-08-16 04:37] VITALS: BP 136/49
[2017-08-16 07:54] VITALS: BP 135/50
[2017-08-16 10:52] LABS: MCH 24.5 pg (26.0-34.0); MCHC 32.2 g/dL (28.0-37.0); MCV 76.2 fL (80.0-100.0); RBC 3.28 mil/uL (4.20-5.00); RDW 17.9 % (10.5-14.5)
[2017-08-16 11:39] LABS: CALCIUM 8.2 mg/dL (8.5-10.1); CREATININE 0.6 mg/dL (0.6-1.0)
[2017-08-16 11:41] LABS: POTASSIUM 3.3 mmol/L (3.5-5.1)
[2017-08-16 15:24] VITALS: BP 152/69
[2017-08-16 19:39] VITALS: BP 109/40
[2017-08-17 03:05] VITALS: BP 126/53
[2017-08-17 03:12] LABS: ABSOLUTE NEUTROPHILS 14.5 thou/uL (1.4-8.2); BASOPHILS 0.4 % (0.0-2.0); EOSINOPHILS 0.6 % (0.0-3.0); HEMATOCRIT 25.7 % (37.0-47.0); HEMOGLOBIN 8.2 gm/dL (12.0-15.0); LYMPHOCYTES 8.2 % (24.0-44.0); MANUAL DIFF NO; MCH 24.6 pg (26.0-34.0); MCHC 31.9 g/dL (28.0-37.0); MCV 77.1 fL (80.0-100.0); MONOCYTES 7.1 % (1.0-8.0); PLATELET COUNT 434 thou/uL (150-400); POLYS 83.7 % (36.0-66.0); RBC 3.33 mil/uL (4.20-5.00); RDW 18.2 % (10.5-14.5); WBC 17.3 thou/uL (4.0-11.0)
[2017-08-17 03:23] LABS: CALCIUM 8.1 mg/dL (8.5-10.1); CREATININE 0.7 mg/dL (0.6-1.0); MAGNESIUM 1.9 mg/dL (1.8-2.4)
[2017-08-17 03:31] LABS: POTASSIUM 4.4 mmol/L (3.5-5.1)
[2017-08-17 09:27] VITALS: BP 136/50
[2017-08-17 09:44] VITALS: BP 136/93
[2017-08-17 10:03] VITALS: BP 115/35
[2017-08-17 10:34] VITALS: BP 111/40
[2017-08-17 16:00] VITALS: BP 112/44
[2017-08-18 04:47] VITALS: BP 138/52
[2017-08-18 06:30] LABS: HEMATOCRIT 23.2 % (37.0-47.0); HEMOGLOBIN 7.3 gm/dL (12.0-15.0); MCH 24.4 pg (26.0-34.0); MCHC 31.5 g/dL (28.0-37.0); MCV 77.5 fL (80.0-100.0); PLATELET COUNT 374 thou/uL (150-400); RBC 2.99 mil/uL (4.20-5.00); RDW 17.9 % (10.5-14.5); WBC 15.6 thou/uL (4.0-11.0)
[2017-08-18 06:43] LABS: CALCIUM 8.1 mg/dL (8.5-10.1); CREATININE 0.6 mg/dL (0.6-1.0); MAGNESIUM 1.8 mg/dL (1.8-2.4); POTASSIUM 3.7 mmol/L (3.5-5.1)
[2017-08-18 06:46] LABS: MANUAL DIFF YES
[2017-08-18 07:45] LABS: TOTAL CELL COUNT 100
[2017-08-18 07:46] LABS: ANISOCYTOSIS 1+; OVALOCYTES 1+
[2017-08-18 07:47] LABS: HYPOCHROMASIA 1+
[2017-08-18 09:48] VITALS: BP 117/48
[2017-08-18 15:20] VITALS: BP 129/59
[2017-08-18 19:45] VITALS: BP 146/62
[2017-08-19 04:45] VITALS: BP 132/55
[2017-08-19 06:24] LABS: ABSOLUTE NEUTROPHILS 7.7 thou/uL (1.4-8.2); BASOPHILS 0.9 % (0.0-2.0); EOSINOPHILS 3.5 % (0.0-3.0); HEMATOCRIT 22.6 % (37.0-47.0); HEMOGLOBIN 7.3 gm/dL (12.0-15.0); LYMPHOCYTES 13.3 % (24.0-44.0); MCH 24.9 pg (26.0-34.0); MCHC 32.5 g/dL (28.0-37.0); MCV 76.6 fL (80.0-100.0); MONOCYTES 11.1 % (1.0-8.0); PLATELET COUNT 355 thou/uL (150-400); POLYS 71.2 % (36.0-66.0); RBC 2.95 mil/uL (4.20-5.00); RDW 18.1 % (10.5-14.5); WBC 10.8 thou/uL (4.0-11.0)
[2017-08-19 06:26] LABS: MANUAL DIFF NO
[2017-08-19 06:31] LABS: CALCIUM 8.1 mg/dL (8.5-10.1); CREATININE 0.5 mg/dL (0.6-1.0); MAGNESIUM 1.8 mg/dL (1.8-2.4); POTASSIUM 3.5 mmol/L (3.5-5.1)
[2017-08-19 08:13] VITALS: BP 146/70
== END 2017-08-19 17:56 | DRG 177 ==
LOC: ER 19:31 → EROBS 21:44 → 4S 21:44
PROVIDERS: Emergency Medicine; Internal Medicine; Nurse Practitioner
PROC: 0BJ08ZZ Inspection of Tracheobronchial Tree, Via Natural or Artificial Opening Endoscopic (ICD-10-PCS; principal; 2017-08-16)
PROC: 0DJ08ZZ Inspection of Upper Intestinal Tract, Via Natural or Artificial Opening Endoscopic (ICD-10-PCS; 2017-08-18)
DX: J69.0 Pneumonitis due to inhalation of food and vomit (principal); J96.90 Respiratory failure, unspecified, unspecified whether with hypoxia or hypercapnia; E44.0 Moderate protein-calorie malnutrition; I10 Essential (primary) hypertension; I48.0 Paroxysmal atrial fibrillation; E78.5 Hyperlipidemia, unspecified; J44.9 Chronic obstructive pulmonary disease, unspecified; R91.8 Other nonspecific abnormal finding of lung field; D72.829 Elevated white blood cell count, unspecified; R13.10 Dysphagia, unspecified; R04.1 Hemorrhage from throat; I25.10 Atherosclerotic heart disease of native coronary artery without angina pectoris; I71.4 Abdominal aortic aneurysm, without rupture; D50.9 Iron deficiency anemia, unspecified; E87.6 Hypokalemia; Z88.0 Allergy status to penicillin; Z88.2 Allergy status to sulfonamides; Z88.8 Allergy status to other drugs, medicaments and biological substances; Z91.040 Latex allergy status; Z95.5 Presence of coronary angioplasty implant and graft; Z87.891 Personal history of nicotine dependence; Z93.1 Gastrostomy status; Z82.49 Family history of ischemic heart disease and other diseases of the circulatory system; Z79.01 Long term (current) use of anticoagulants; Z68.20 Body mass index [BMI] 20.0-20.9, adult; Z90.89 Acquired absence of other organs; Z98.51 Tubal ligation status; Z98.49 Cataract extraction status, unspecified eye
CPT/HCPCS: 10195; 62110; 62900; 70005

== ENCOUNTER 2017-09-22 16:18 | Inpatient (IN) | payer OTHER, MEDICARE ==
[~2017-09-22] VITALS: Ht 154.9 cm; Wt 48.1 kg
--- NOTE | ~2017-09-22 | EKG ---
[address] [address] ELECTROCARDIOGRAM REPORT Name: CONSTANTINO LAIRD Room #: 431-P ADM IN M.R.#: [id number] Admission: 09/22/17 Attend Phys: Jose Maria Becker DO Discharge: Date of : 33 Report #: [id number] THIS REPORT FOR: //name// [facility] ED Test Date: 2017-09-22 Test Time: 17:52:28 Pat Name: CONSTANTINO LAIRD Department: Room: [facility] Gender: F School Transportation Supervisor: MZMARQUES : 1935 Requested By: Jay Pleitez Order Number: [id number] MD: Thomas Hamilton Measurements Intervals [place] Rate: 96 P: 84 [place]: 148 QRS: 57 QRSD: 76 T: 58 QT: 361 QTc: 457 Interpretive Statements Sinus rhythm Probable anteroseptal infarct, old Compared to ECG 07/25/2017 12:38:36 Myocardial infarct finding now present Ventricular premature complex(es) no longer present Electronically Signed On 09-22-2017 23:08:17 PRINTER ASSISTANT by Thomas Hamilton [email or web address] <ELECTRONICALLY SIGNED> By: Thomas Hamilton MD 09/22/17 2308 175 175 Thomas Hamilton MD /EPI
--- NOTE | ~2017-09-22 | HC ---
[facility] [place] [address] CONSULTATION Name: CONSTANTINO LAIRD Room #: 431-P [facility] IN M.R.#: [id number] Admission: 09/22/17 Attend Phys: Jose Maria Becker, DO Discharge: 09/28/17 Date of : 31 Report #: [id number] THIS REPORT FOR: //name// CC: Jose Maria Becker DO Samuel Box DATE OF SERVICE: 09/22/2017 REFERRING PROVIDER: Dr. Jose Maria Becker. REASON FOR CONSULTATION: Pulmonary infiltrate, fever. CHIEF COMPLAINT: Fever. HISTORY OF PRESENT ILLNESS: Our group was asked to evaluate this patient in consultation while hospitalized at [facility], known to our group from multiple prior admissions and followed by Dr. Mckeon our group. She is a pleasant 81-year-old woman with a past pulmonary history significant for a persistent right lower lobe infiltrate or mass as well as COPD and chronic hypoxemia, most recently hospitalized one month ago with complaints of hemoptysis and underwent fiberoptic bronchoscopy with bronchioalveolar lavage. Procedure was complicated by intolerance to sedating medications, requiring reversal agents. Bronchoscopy at that time was nondiagnostic. She subjectively improved and was undergoing rehabilitative care at [facility] in [place]. Subsequently, was discharged home with home health, was noted to have fever today and represented to the Emergency Department. Has had some cough with clear to yellow sputum. No chest pains. No increased dyspnea or oxygen requirements. At her last hospital stay, she was noted to have some dysphagia and also underwent PEG tube placement and she has been undergoing speech therapy care as well and is currently on what sounds like nectar thick liquids. Currently, is speaking in full sentences. Does not appear in any significant distress. ALLERGIES: Include PENICILLIN, TRIMETHOPRIM, SULFAMETHOXAZOLE. PAST MEDICAL HISTORY: 1. COPD, most recent spirometry 09/19 revealed an FEV1 of 0.60 L at 38% of predicted. 2. Chronic hypoxemia secondary to COPD. 3. Right lower lobe mass-like infiltrate of unclear etiology. 4. Dysphagia, status post PEG tube placement. 5. Coronary artery disease, status post percutaneous stent placement. 6. History of hiatal hernia. 7. Urinary incontinence. 8. Hyperlipidemia. [facility] [address] [place] [address] CONSULTATION Name: CONSTANTINO LAIRD Room #: 431-P [facility] IN M.R.#: [id number] Admission: 09/22/17 Attend Phys: Jose Maria Becker, Discharge: 09/28/17 Date of : 33 Report #: [id number] 9. Systemic lupus erythematosus. 10. Recurrent sinus disease. 11. Abdominal aortic aneurysm. OUTPATIENT MEDICATIONS: 1. Eliquis. 2. Tylenol. 3. ProAir p.r.n. 4. Amiodarone. 5. Amlodipine. 6. Brovana. 7. Aspirin. 8. Lipitor. 9. Pulmicort nebulized. 10. Calcium. 11. Plavix. 12. Coenzyme Q10. 13. Cymbalta. 14. Gabapentin. 15. Mucinex. 16. Metoprolol. 17. Supplemental oxygen. 18. Spiriva. SOCIAL HISTORY: The patient is a nonsmoker, quitting in 2012. Occasional alcohol consumption, has been living independently but recently discharged from advanced rehab. FAMILY HISTORY: Noncontributory due to her advanced age but there is familial history of hypertension, asthmatic bronchi, allergies; colon, bone, lung and bladder cancers. REVIEW OF SYSTEMS: CONSTITUTIONAL: Fever as noted. No chills or sweats. Some ongoing weight loss. ENT: Dysphagia. No epistaxis or rhinorrhea at this time. CARDIOVASCULAR: Denies any chest pain or palpitations. GASTROINTESTINAL: No nausea, vomiting, diarrhea, constipation or abdominal pain. GENITOURINARY: No dysuria, no frequency, but does have incontinence. INTEGUMENT: Denies any rash. MUSCULOSKELETAL: No joint pains or swelling. HEMATOLOGIC: History of systemic lupus, although seem relatively asymptomatic at this time. [facility] [address] [place] [address] CONSULTATION Name: CONSTANTINO LAIRD Room #: 431-P [facility] IN [facility].#: [id number] Admission: 09/22/17 Attend Phys: Jose Maria Becker, DO Discharge: 09/28/17 Date of : 33 Report #: [id number] PHYSICAL EXAMINATION: VITAL SIGNS: Afebrile at present, T-max 37.8, pulse 80s and regular, respiratory rate 18, blood pressure 124/60, oxygen saturation 96% on 3 L. GENERAL: This is a pleasant elderly woman in no distress. HEENT: Clear oropharynx, Mallampati 1 airway, no thrush. No erythema. NECK: Supple, no lymphadenopathy or stridor. LUNGS: A bronchial breath sounds in the right base. No wheezes or crackles noted. CARDIOVASCULAR: Heart was irregular. No murmurs noted. ABDOMEN: Soft, nontender, no masses. PEG tube in place. EXTREMITIES: Warm, 2+ pulses. No significant edema. INTEGUMENT: Without rash. LABORATORY DATA: White blood cell count 22,000; hemoglobin 9; hematocrit 29; platelet count 368. Sodium 137, potassium 4.0, chloride 98, bicarbonate 25, BUN 26, creatinine 0.8, glucose 135, albumin 3.1. No arterial blood gas. Lactate was 1.5. Chest x-ray reveals some persistent right lower lobe opacity improved when compared to previous findings. IMPRESSION: 1. Fever, likely related to respiratory process. 2. Persistent right basilar infiltrative mass, unclear etiology. Malignancy is certainly a concern. 3. Leukocytosis. 4. Chronic hypoxemia. 5. Chronic obstructive pulmonary disease seems to be relatively stable symptomatically. 6. Dysphagia with PEG tube feeds and working with speech therapy on other aspects of dysphagia management. 7. Chronic anticoagulant therapy. 8. History of coronary artery disease. 9. History of atrial fibrillation. 10. Anemia. SUGGESTIONS: 1. Hold Eliquis, hold Plavix if able and anticipate for possible diagnostic procedure. 2. Followup CT scan of the chest. 3. Infectious Disease consult noted, defer antibiotics choices to them. 4. Continue with systemic steroids with taper. 5. Bronchodilators. 6. Oxygen protocol. 7. Consider transbronchial lung biopsy or percutaneous needle biopsy if appropriate further evaluate while off anticoagulant therapy. 8. Await cultures and other respiratory viral panel studies. 9. Additional recommendations to follow. [facility] [address] [place] [address] CONSULTATION Name: CONSTANTINO LAIRD Room #: 431-P [facility] IN M.R.#: [id number] Admission: 09/22/17 Attend Phys: Jose Maria Becker DO Discharge: 09/28/17 Date of : 33 Report #: [id number] Thank you for requesting our suggestions. <ELECTRONICALLY SIGNED> By: Tim Oneil MD 10/03/17 1450 [id number] 1107 Tim Oneil MD /nt
[2017-09-22 16:28] VITALS: BP 114/49
[2017-09-22 17:12] LABS: HEMATOCRIT 28.8 % (37.0-47.0); HEMOGLOBIN 8.9 gm/dL (12.0-15.0); MCH 22.7 pg (26.0-34.0); MCHC 30.9 g/dL (28.0-37.0); MCV 73.6 fL (80.0-100.0); PLATELET COUNT 368 thou/uL (150-400); RBC 3.92 mil/uL (4.20-5.00); RDW 18.4 % (10.5-14.5); WBC 21.6 thou/uL (4.0-11.0)
[2017-09-22 17:13] LABS: MANUAL DIFF YES
[2017-09-22 17:23] LABS: CREATININE 0.8 mg/dL (0.6-1.0)
[2017-09-22 17:24] LABS: URINE BILIRUBIN NEGATIVE (Negative); URINE BLOOD NEGATIVE (Negative); URINE COLOR YELLOW; URINE GLUCOSE-RANDOM* NEGATIVE (Negative); URINE KETONES NEGATIVE (Negative); URINE NITRITE NEGATIVE (Negative); URINE PROTEIN (DIPSTICK) 1+ (Negative); URINE SPECIFIC GRAVITY 1.015 (1.003-1.035); URINE UROBILINOGEN 0.2 E.U./dl (0.2-1.0)
[2017-09-22 17:29] LABS: ALBUMIN 3.1 g/dL (3.4-5.0); TOTAL BILIRUBIN 0.5 mg/dL (<0.1-1.0); TOTAL PROTEIN 6.8 g/dL (6.4-8.2)
[2017-09-22 17:31] LABS: ANISOCYTOSIS 1+; OVALOCYTES FEW; TOTAL CELL COUNT 100
[2017-09-22 17:33] LABS: SCHISTOCYTES OCCASIONAL
[2017-09-22 17:34] LABS: HYPOCHROMASIA 1+; MICROCYTES 1+; POLYCHROMASIA OCCASIONAL
[2017-09-22 17:34] LABS: BACTERIA None Seen /HPF (None Seen); CASTS None Seen /LPF (None Seen); CRYSTALS None Seen /LPF (None Seen); SQUAMOUS 0-3 Few /LPF (0-3); URINE RBC None Seen /HPF (0-2); URINE WBC 0-5 Rare /HPF (0-5)
[2017-09-22 18:45] VITALS: BP 135/50
[2017-09-22 20:00] VITALS: BP 124/46
[2017-09-22 20:02] VITALS: BP 124/60
[2017-09-22 23:19] VITALS: BP 127/70
[2017-09-23 03:20] VITALS: BP 136/74
[2017-09-23 06:20] LABS: HEMATOCRIT 30.3 % (37.0-47.0); HEMOGLOBIN 9.3 gm/dL (12.0-15.0); MCH 22.7 pg (26.0-34.0); MCHC 30.8 g/dL (28.0-37.0); MCV 73.5 fL (80.0-100.0); PLATELET COUNT 361 thou/uL (150-400); RBC 4.12 mil/uL (4.20-5.00); RDW 18.3 % (10.5-14.5); WBC 14.3 thou/uL (4.0-11.0)
[2017-09-23 06:28] LABS: MANUAL DIFF YES
[2017-09-23 06:35] LABS: CALCIUM 8.9 mg/dL (8.5-10.1); CREATININE 0.5 mg/dL (0.6-1.0); POTASSIUM 4.2 mmol/L (3.5-5.1)
[2017-09-23 08:00] VITALS: BP 142/87
[2017-09-23 08:04] LABS: TOTAL CELL COUNT 100
[2017-09-23 08:05] LABS: ABSOLUTE NEUTROPHILS 13.7 thou/uL (1.4-8.2); ANISOCYTOSIS 2+; MICROCYTES 1+; PLATELET ESTIMATE NORMAL
[2017-09-23 08:06] LABS: HYPOCHROMASIA 2+; OVALOCYTES 1+; POIKILOCYTOSIS 1+
[2017-09-23 09:25] LABS: % SATURATION 4 % (20-39); IRON 12 ug/dL (50-170); TIBC 280 ug/dL (250-450); UIBC 268 ug/dL
[2017-09-23 09:53] LABS: FERRITIN 71 ng/mL (8-252)
[2017-09-23 15:44] VITALS: BP 117/56
[2017-09-23 19:06] VITALS: BP 121/52
[2017-09-24 03:17] VITALS: BP 126/61
[2017-09-24 06:17] LABS: HEMATOCRIT 27.6 % (37.0-47.0); HEMOGLOBIN 8.5 gm/dL (12.0-15.0); MANUAL DIFF YES; MCHC 30.8 g/dL (28.0-37.0); MCV 74.8 fL (80.0-100.0); PLATELET COUNT 409 thou/uL (150-400); RBC 3.69 mil/uL (4.20-5.00); RDW 18.6 % (10.5-14.5); WBC 17.3 thou/uL (4.0-11.0)
[2017-09-24 06:21] LABS: CALCIUM 8.9 mg/dL (8.5-10.1); CREATININE 0.9 mg/dL (0.6-1.0); POTASSIUM 3.5 mmol/L (3.5-5.1)
[2017-09-24 08:04] VITALS: BP 120/64
[2017-09-24 09:19] LABS: ABSOLUTE NEUTROPHILS 15.7 thou/uL (1.4-8.2); ANISOCYTOSIS 2+; HYPOCHROMASIA 1+; TOTAL CELL COUNT 100
[2017-09-24 09:20] LABS: OVALOCYTES 1+
[2017-09-24 09:21] LABS: POIKILOCYTOSIS SLIGHT; SCHISTOCYTES RARE
[2017-09-24 16:33] VITALS: BP 123/65
[2017-09-24 20:00] VITALS: BP 149/79
[2017-09-25 04:30] VITALS: BP 155/75
[2017-09-25 06:01] LABS: CREATININE 0.5 mg/dL (0.6-1.0); MAGNESIUM 1.6 mg/dL (1.8-2.4); POTASSIUM 3.5 mmol/L (3.5-5.1)
[2017-09-25 06:04] LABS: HEMATOCRIT 26.8 % (37.0-47.0); HEMOGLOBIN 8.2 gm/dL (12.0-15.0); MCH 22.8 pg (26.0-34.0); MCHC 30.6 g/dL (28.0-37.0); MCV 74.5 fL (80.0-100.0); RBC 3.6 mil/uL (4.20-5.00); RDW 18.5 % (10.5-14.5); WBC 13.4 thou/uL (4.0-11.0)
[2017-09-25 08:45] VITALS: BP 138/74
[2017-09-25 15:55] VITALS: BP 136/67
[2017-09-25 20:12] VITALS: BP 144/82
[2017-09-26 03:45] VITALS: BP 143/68
[2017-09-26 04:25] LABS: ABSOLUTE NEUTROPHILS 9.1 thou/uL (1.4-8.2); BASOPHILS 0.2 % (0.0-2.0); EOSINOPHILS 0.5 % (0.0-3.0); HEMATOCRIT 27.2 % (37.0-47.0); HEMOGLOBIN 8.5 gm/dL (12.0-15.0); LYMPHOCYTES 10.4 % (24.0-44.0); MCH 22.9 pg (26.0-34.0); MCHC 31.3 g/dL (28.0-37.0); MCV 73.1 fL (80.0-100.0); MONOCYTES 8.2 % (1.0-8.0); PLATELET COUNT 375 thou/uL (150-400); POLYS 80.7 % (36.0-66.0); RBC 3.72 mil/uL (4.20-5.00); WBC 11.3 thou/uL (4.0-11.0)
[2017-09-26 04:36] LABS: ALBUMIN 2.3 g/dL (3.4-5.0); CALCIUM 8.1 mg/dL (8.5-10.1); CREATININE 0.5 mg/dL (0.6-1.0); MAGNESIUM 1.7 mg/dL (1.8-2.4); PHOSPHORUS 3.2 mg/dL (2.5-4.9); POTASSIUM 3.2 mmol/L (3.5-5.1); TOTAL BILIRUBIN 0.4 mg/dL (<0.1-1.0); TOTAL PROTEIN 5.3 g/dL (6.4-8.2)
[2017-09-26 04:39] LABS: MANUAL DIFF NO
[2017-09-26 05:37] LABS: ANISOCYTOSIS 2+; HYPOCHROMASIA 1+
[2017-09-26 09:54] VITALS: BP 132/81
[2017-09-26 16:48] VITALS: BP 136/79
[2017-09-26 20:10] VITALS: BP 170/96
[2017-09-27 05:16] VITALS: BP 110/63
[2017-09-27 06:30] LABS: ALBUMIN 2.5 g/dL (3.4-5.0); CALCIUM 8.5 mg/dL (8.5-10.1); CREATININE 0.5 mg/dL (0.6-1.0); POTASSIUM 3.7 mmol/L (3.5-5.1); TOTAL BILIRUBIN 0.4 mg/dL (<0.1-1.0); TOTAL PROTEIN 5.2 g/dL (6.4-8.2)
[2017-09-27 07:14] VITALS: BP 138/82
[2017-09-27 10:09] VITALS: BP 138/82
[2017-09-27 16:12] VITALS: BP 121/66
[2017-09-27 20:00] VITALS: BP 124/66
[2017-09-28 05:08] VITALS: BP 106/44
[2017-09-28 06:12] LABS: ABSOLUTE NEUTROPHILS 7.2 thou/uL (1.4-8.2); BASOPHILS 0.6 % (0.0-2.0); EOSINOPHILS 1.3 % (0.0-3.0); HEMATOCRIT 26.9 % (37.0-47.0); HEMOGLOBIN 8.3 gm/dL (12.0-15.0); MCH 22.5 pg (26.0-34.0); MCHC 30.9 g/dL (28.0-37.0); MCV 72.9 fL (80.0-100.0); MONOCYTES 9.6 % (1.0-8.0); PLATELET COUNT 375 thou/uL (150-400); POLYS 77.5 % (36.0-66.0); RBC 3.68 mil/uL (4.20-5.00); RDW 17.7 % (10.5-14.5); WBC 9.3 thou/uL (4.0-11.0)
[2017-09-28 06:18] LABS: MANUAL DIFF NO
[2017-09-28 06:42] LABS: CALCIUM 8.6 mg/dL (8.5-10.1); CREATININE 0.5 mg/dL (0.6-1.0); POTASSIUM 3.7 mmol/L (3.5-5.1)
[2017-09-28 07:05] VITALS: BP 129/73
[2017-09-28] MEDS ORDERED: CEFDINIR300 MG PO (11:33)
[2017-09-28] MEDS ORDERED: MARINOL 2.5 MG2.5 M1 PO (11:43)
[2017-09-28] MEDS ORDERED: REGLAN 5 MG TAB5 MG PO (11:44)
== END 2017-09-28 15:00 | DRG 177 ==
LOC: ER 16:18 → 4E 18:14 → EROBS 18:14 → 4E 19:48
PROVIDERS: Family Medicine; Internal Medicine Geriatric Medicine; Nurse Practitioner Family; Physician Assistant; Registered Nurse
DX: J69.0 Pneumonitis due to inhalation of food and vomit (principal); J96.21 Acute and chronic respiratory failure with hypoxia; J44.1 Chronic obstructive pulmonary disease with (acute) exacerbation; M32.9 Systemic lupus erythematosus, unspecified; I10 Essential (primary) hypertension; G62.9 Polyneuropathy, unspecified; I48.0 Paroxysmal atrial fibrillation; D50.9 Iron deficiency anemia, unspecified; I25.10 Atherosclerotic heart disease of native coronary artery without angina pectoris; B37.9 Candidiasis, unspecified; K31.84 Gastroparesis; E78.5 Hyperlipidemia, unspecified; K22.2 Esophageal obstruction; I73.9 Peripheral vascular disease, unspecified; Z87.891 Personal history of nicotine dependence; Z98.1 Arthrodesis status; Z91.81 History of falling; Z90.49 Acquired absence of other specified parts of digestive tract; Z95.5 Presence of coronary angioplasty implant and graft; Z93.1 Gastrostomy status; Z95.820 Peripheral vascular angioplasty status with implants and grafts; Z88.0 Allergy status to penicillin; Z88.2 Allergy status to sulfonamides; Z88.8 Allergy status to other drugs, medicaments and biological substances; Z79.01 Long term (current) use of anticoagulants; Z79.02 Long term (current) use of antithrombotics/antiplatelets; Z79.82 Long term (current) use of aspirin; Z79.899 Other long term (current) drug therapy
CPT/HCPCS: 10084

== ENCOUNTER → 2017-11-09 | Outpatient (CLI) | payer OTHER, MEDICARE ==
[~2017-11-09] MED LIST changes: +CATAPRES0.1 MG PER TUBE; +CEFDINIR S250 MG/5 M PER TUBE; +CLONIDINE0.1 PO; +FAMOTIDINE40 MG/5 ML PER TUBE; +FERROUS SU220 MG/52 PER TUBE; +FLAGYL500 MG PER TUBE; +FLUOXETINE20 MG/5 M1 PER TUBE; +HYDRALAZINE 10M10 MG PO; +HYDROCODONE-ACE15 ML PO; +HYDROCODONE-AP1 EAC6 PO; +IPRAT-ALBUT 0.5-3 ML INH; +IRON325 PER TUBE; +KEPPRA 500 MG500 M1 PO; +LOPRESSOR25 PER TUBE; +MARINOL 2.5 MG2.5 M1 PO; +METOPROLOL TART25 MG PO; +OXYGEN MISCELL; +PEPCID20 MG PO; +PROZAC10 MG PO; +PULMICORT0.25 MG/3 INH; +REGLAN 5 MG TAB5 MG PO; +SCOPOLAMINE1 EACH TRANSDERM; +SYNTHROID100 MC1 PO; +SYNTHROID50 MCG PO; +TRAZODONE HCL50 MG PER TUBE
== END ==
LOC: CAT 10:35
DX: I25.10 Atherosclerotic heart disease of native coronary artery without angina pectoris (principal); R91.8 Other nonspecific abnormal finding of lung field; J98.4 Other disorders of lung; J98.11 Atelectasis; M43.22 Fusion of spine, cervical region; M41.84 Other forms of scoliosis, thoracic region; M41.86 Other forms of scoliosis, lumbar region; K76.0 Fatty (change of) liver, not elsewhere classified; I77.811 Abdominal aortic ectasia; J44.1 Chronic obstructive pulmonary disease with (acute) exacerbation; J96.21 Acute and chronic respiratory failure with hypoxia; I10 Essential (primary) hypertension; E78.5 Hyperlipidemia, unspecified

== ENCOUNTER 2017-11-21 07:04 | Inpatient (IN) | payer OTHER, MEDICARE ==
[~2017-11-21] VITALS: Ht 154.9 cm; Wt 43.4 kg
--- NOTE | ~2017-11-21 | EKG ---
[address] [address] ELECTROCARDIOGRAM REPORT Name: CONSTANTINO LAIRD Room #: 424-P ADM IN M.R.#: [id number] Admission: 11/21/17 Attend Phys: Rolando Jaime MD Discharge: Date of : 33 Report #: [id number] THIS REPORT FOR: //name// [facility] Test Date: 2017-11-21 Test Time: 14:06:54 Pat Name: CONSTANTINO LAIRD Department: Room: 424 P Gender: F Jewel Hole Cornerer: estrella : 1935 Requested By: Rhiannon Albrecht Order Number: [id number] MD: Thomas Hamilton Measurements Intervals [place] Rate: 100 P: 73 IN: 166 QRS: 62 QRSD: 133 T: 43 QT: 388 QTc: 501 Interpretive Statements Sinus tachycardia Atrial premature complexes Probable left ventricular hypertrophy Anterior Q waves, possibly due to LVH Electronically Signed On 11-21-2017 15:46:53 RATE AND COST ANALYST by Thomas Hamilton [email or web address] <ELECTRONICALLY SIGNED> By: Thomas Hamilton MD 11/21/17 1546 05 05 Thomas Hamilton MD /DEDRICK
--- NOTE | ~2017-11-21 | H ---
[facility] [place] [address] HISTORY AND PHYSICAL Name: CONSTANTINO LAIRD Room #: 424-P ADM IN M.R.#: [id number] Admission: 11/21/17 Attend Phys: Rolando Jaime MD Discharge: Date of : 33 Report #: [id number] THIS REPORT FOR: //name// CC: Samuel Jaime DATE OF SERVICE: 11/21/2017 The patient is admitted to the hospital on November 21. CHIEF COMPLAINT: Syncope, weakness, and chills. HISTORY OF PRESENT ILLNESS: The patient is an 82-year-old female with multiple medical problems, who came to the hospital after she had a syncopal episode at home. The patient states that she was coming back from bathroom, but she thought that she could not make to her bed. She experienced extreme weakness at the same time. The patient briefly lost her consciousness. She was brought to the Emergency Room. In the Emergency Room, the patient was found to have right middle lobe infiltrate. Rest of the evaluation was unremarkable, except with white count of 15,000. The patient has complicated past medical history and multiple hospitalizations. Since May of 2017, she has been hospitalized here almost every month. Most recently, she was hospitalized for pneumonia. The patient currently feels slightly better. She still reports extreme weakness. She also has cough, with minor sputum production. She has subjective chills and fever. She denies chest pain. She has no palpitations. PAST MEDICAL HISTORY: 1. Hypertension. 2. Coronary artery disease, status post stent. 3. Lupus. 4. Chronic obstructive pulmonary disease, chronic respiratory failure on home oxygen, 2.5-3 liters. 5. Dyslipidemia. 6. Dysphagia, status post PEG placement. 7. Peripheral artery disease status post mesenteric stent placement. 8. CHF, ejection fraction of 40% based on cardiac echo from last year. 9. Status post C-spine surgery. CURRENT MEDICATIONS: Reviewed and documented in the patient's chart. FAMILY HISTORY: Reviewed and not pertinent to the patient's current clinical [facility] [address] [place] [address] HISTORY AND PHYSICAL Name: CONSTANTINO LAIRD Room #: 424-P [facility] IN M.R.#: [id number] Admission: 11/21/17 Attend Phys: Rolando Jaime MD Discharge: Date of : 33 Report #: [id number]. SOCIAL HISTORY: The patient is former smoker. She does not drink alcohol. REVIEW OF SYSTEMS: As above in HPI section, all others negative. PHYSICAL EXAMINATION: GENERAL: The patient is an elderly female who is in no apparent distress. She is alert and oriented x 3. VITAL SIGNS: Blood pressure is 170/70, heart rate is 83 and regular, respiration is 18 and temperature is 98.4. HEENT: Pupils are equal. Eye movements are normal. Sclerae are anicteric. NECK: Supple. The patient has no thyromegaly. JVD is not appreciated. The patient has no carotid bruits. RESPIRATORY: Respiratory sounds are extremely diminished bilaterally. The patient has no wheezes or crackles. CARDIOVASCULAR: The patient has distant S1 and S2. She has no murmurs, gallops or rubs. GASTROINTESTINAL: PEG tube is in place. Abdomen is soft, nontender, and nondistended. Bowel sounds are present. Hepatomegaly or splenomegaly is not palpated. MUSCULOSKELETAL: There is no edema, cyanosis or clubbing. The patient has normal range of motion. Joint deformities not appreciated. NEUROLOGIC: The patient is alert and oriented x 3. examination is nonfocal. SKIN: Reveals no skin lesions. Skin is dry and warm. LABORATORY DATA: On CBC, the patient has leukocytosis with a white count of 15.3. Platelets are normal. Hemoglobin is chronically low at 10.2 and hematocrit is 32.7. On metabolic profile, electrolytes and creatinine are normal. Liver function tests are also normal. Troponin is undetectable. EKG shows sinus rhythm without acute ST segment changes. On chest x-ray, the patient has right middle lobe infiltrate. ASSESSMENT AND PLAN: 1. Pneumonia, healthcare-associated, presented with right middle lobe infiltrate. The patient will be treated with triple antibiotic therapy. Blood cultures will be obtained. Continue breathing treatments per home regimen. 2. Syncope, likely related to above. Brief episode. The patient also has history of congestive heart failure and ejection fraction of 40% based on echo as of last year. No arrhythmias are reported so far. We will obtain cardiac echo. Consult replacer. Input is very much appreciated. 3. Chronic obstructive pulmonary disease, chronic respiratory failure. On home oxygen, 2.5-3 liters. We will continue unchanged. 4. Chronic dysphagia. The patient is on pureed and nectar thick liquid diet. She also has a PEG tube for nutritional supplementation. Continue home regimen [facility] [address] [place] [address] HISTORY AND PHYSICAL Name: CONSTANTINO LAIRD Room #: 424-P ADM IN M.R.#: [id number] Admission: 11/21/17 Attend Phys: Rolando Jaime MD Discharge: Date of : 33 Report #: [id number] of tube feeding. 5. History of coronary artery disease. No chest pain. 6. Deep venous thrombosis prophylaxis. SubQ Lovenox. <ELECTRONICALLY SIGNED> By: Rhiannon Albrecht MD 11/23/17 1646 1352 1409 Rhiannon Albrecht MD /nt
--- NOTE | ~2017-11-21 | EKG ---
[address] [address] ELECTROCARDIOGRAM REPORT Name: CONSTANTINO LAIRD Room #: 424-P ADM IN M.R.#: [id number] Admission: 11/21/17 Attend Phys: Rolando Jaime MD Discharge: Date of : 33 Report #: [id number] THIS REPORT FOR: //name// [facility] Test Date: 2017-11-27 Test Time: 10:39:03 Pat Name: CONSTANTINO LAIRD Department: Room: 424 P Gender: F Potash Flaker: INGA : 1935 Requested By: Wander Brwon Order Number: [id number] MD: Thomas Hamilton Measurements Intervals [place] Rate: 78 P: 44 AK: 155 QRS: 39 QRSD: 87 T: 46 QT: 410 QTc: 468 Interpretive Statements Sinus rhythm Probable anteroseptal infarct, old Compared to ECG 11/21/2017 14:06:54 Myocardial infarct finding now present Sinus tachycardia no longer present Atrial premature complex(es) no longer present Left ventricular hypertrophy no longer present Q waves no longer present Electronically Signed On 11-27-2017 12:17:12 SCRUBBER MACHINE TENDER by Thomas Hamilton [email or web address] <ELECTRONICALLY SIGNED> By: Thomas Hamilton MD 11/27/17 1217 1039 1039 Thomas Hamilton MD /EPI
--- NOTE | ~2017-11-21 | EKG ---
[place] [address] [facility] [place] [address] ELECTROCARDIOGRAM REPORT Name: CONSTANTINO LAIRD [facility]: [facility] [id number] Admission: 11/21/17 Attend Phys: Discharge: Date of : 33 Report #: [id number] THIS REPORT FOR: //name// [facility] ED Test Date: 2017-11-21 Test Time: 07:05:47 Pat Name: CONSTANTINO LAIRD Department: Room: Gender: F Instructor Watch Assembly: DG : 1935 Requested By: Ryder Marc Order Number: [id number] MD: Thomas Hamilton Measurements Intervals [place] Rate: 77 P: 76 WA: 153 QRS: 65 QRSD: 89 T: 48 QT: 390 QTc: 442 Interpretive Statements Sinus rhythm Probable anteroseptal infarct, old Compared to ECG 09/22/2017 17:52:28 No significant changes Electronically Signed On 11-21-2017 8:11:16 CASKET ASSEMBLER METAL by Thomas Hamilton [email or web address] <ELECTRONICALLY SIGNED> By: Thomas Hamilton MD 11/21/17 0811 0705 4 Thomas Hamilton MD /DEDRICK
--- NOTE | ~2017-11-21 | 2DMMODE ---
[facility] [address] [place] [address] 2 D/M-MODE ECHOCARDIOGRAM Name: CONSTANTINO LAIRD Room #: 424-P ADM IN M.R.#: [id number] Admission: 11/21/17 Attend Phys: Brittani Hill Discharge: Date of : 31 Date of Service: 11/21/17 1506 Report #: [id number] THIS REPORT FOR: //name// APPROVED REPORT Study performed: 11/21/2017 14:11:53 EXAM: Comprehensive 2D, Doppler, and color-flow Echocardiogram Patient Location: Bedside Room #: 424 Status: routine BSA: 1.36 BP: 170/70 mmHg Other Information Study Quality: Technically Limited Technically limited study due to lung disease. Some doppler measurements not taken due to inaccurate doppler angle.. Indications COPD Atrial Fibrillation Dyspnea Syncope Hypertension/HDD 2D Dimensions RVDd: 29.63 mm LVEF(%): 66.24 (>50%) IVSd: 11.61 (7-11mm) LVOT Diam: 23.16 (18-24mm) LVDd: 43.40 mm PWd: 11.43 (7-11mm) Ascending Ao: 27.78 (22-36mm) LVDs: 27.65 (25-40mm) Aortic Root: 28.95 mm IVC: 13.00 mm Ramsey's LVEF: 66.24 % Volumes Left Atrial Volume (Systole) Single Plane 4CH: 19.63 mL Single Plane 2CH: 11.94 mL LA ESV Index: 15.00 mL/m2 Aortic Valve AoV Peak Eddie.: 1.74 m/s AO Peak Gr.: 12.15 mmHg LVOT Max P.55 mmHg [facility] [address] [place] [address] 2 D/M-MODE ECHOCARDIOGRAM Name: CONSTANTINO LAIRD Room #: 424-P ADM IN ..#: [id number] Admission: 11/21/17 Attend Phys: Brittani Hill Discharge: Date of : 33 Date of Service: 11/21/17 1506 Report #: [id number] LVOT Max V: 0.94 m/s ENOCH Vmax: 2.28 cm2 Mitral Valve MV Decel. Time: 181.89 ms MV E Max Eddie.: 0.84 m/s Pulmonary Valve PV Peak Eddie.: 1.04 m/s PV Peak Gr.: 4.35 mmHg Tricuspid Valve RAP Estimate: 5.00 mmHg Left Ventricle The left ventricle is normal size. Mild concentric left ventricular hypertrophy. The left ventricular systolic function is normal. The left ventricular ejection fraction is within the normal range. LVEF is 55-60%. This study is not technically sufficient to allow evaluation of the LV diastolic function due to atrial fibrillation. Right Ventricle The right ventricle is normal size. Atria The left atrium size is normal. The right atrium size is normal. Aortic Valve The Aortic valve is sclerotic. No aortic regurgitation is present. There is no aortic valvular stenosis. Mitral Valve Moderate mitral annular calcification. Trace mitral regurgitation. No evidence of mitral valve stenosis. Tricuspid Valve The tricuspid valve is normal in structure. Trace to mild tricuspid regurgitation. Unable to assess PA pressure. Pulmonic Valve The pulmonary valve is normal in structure. Trace pulmonic regurgitation. Great Vessels The aortic root is normal in size. IVC is normal in size and [facility] [address] [place] [address] 2 D/M-MODE ECHOCARDIOGRAM Name: CONSTANTINO LAIRD Room #: 424-P ADM IN M.R.#: [id number] Admission: 11/21/17 Attend Phys: Brittani Hill Discharge: Date of : 33 Date of Service: 11/21/17 1506 Report #: [id number] collapses >50% with inspiration. Pericardium There is no pericardial effusion. <Conclusion> The left ventricle is normal size. Mild concentric left ventricular hypertrophy. The left ventricular systolic function is normal. The right ventricle is normal size. The left atrium size is normal. The Aortic valve is sclerotic. Moderate mitral annular calcification. Trace mitral regurgitation. Trace to mild tricuspid regurgitation. <ELECTRONICALLY SIGNED> By: Dustin Ramsey MD 11/21/17 1506 1506 150 Dustin Ramsey MD /[facility]
--- NOTE | ~2017-11-21 | HC ---
[facility] [place] [address] CONSULTATION Name: CONSTANTINO LAIRD Room #: 424-P ADM IN M.R.#: [id number] Admission: 11/21/17 Attend Phys: Rolando Jaime MD Discharge: Date of : 33 Report #: [id number] THIS REPORT FOR: //name// CC: Samuel Jaime DATE OF SERVICE: 11/28/2017 REASON FOR CONSULTATION: I was asked to evaluate concerning aspiration pneumonia and thrush. HISTORY OF PRESENT ILLNESS: The patient is an 81-year-old known from her previous hospitalizations with recurring aspiration pneumonia. She has had extensive workup which showed gastroparesis and issues with esophageal motility and stricture. Ultimately, had a gastrostomy tube placed. She continued to eat; however, video swallows never confirmed gross aspiration. She returns with a right upper lobe pulmonary infiltrate. Video swallow this hospitalization shows significant aspiration of multiple consistencies. She has been on broad spectrum antibiotic coverage since 11/21/2017 after admission for a syncopal episode associated with aspiration. Now, has complaints of thrush and odynophagia. Also, has diarrhea. Has a decubitus to her right sacrum. No fever, chills or sweats. Her white count has normalized. Some 3 L of oxygen per nasal cannula. Now, is using her PEG tube for feeding. GI has been consulted for extending the gastric tube to a jejunostomy. ALLERGIES: PENICILLIN WITH HIVES, although does tolerate cephalosporins, ADHESIVE TAPE, ELIQUIS, LYRICA, SULFA. MEDICATIONS: As noted on JAN, including cefepime, metronidazole, vancomycin, Levaquin, now clotrimazole. Vancomycin was discontinued on the . Other medications as noted on her JAN. PAST MEDICAL HISTORY: In addition to above, she has had paroxysmal atrial fibrillation, aortic aneurysm, carotid artery disease, coronary artery disease, hypertension, hyperlipidemia, syncope, pulmonary mass, cataract extraction, sinus surgery, tonsillectomy. FAMILY HISTORY: Coronary artery disease. SOCIAL HISTORY: Smoking history with cigarettes, minimal alcohol intake. REVIEW OF SYSTEMS: Noted above. PHYSICAL EXAMINATION: VITAL SIGNS: Afebrile, hemodynamically stable. GENERAL: She is alert, cooperative and pleasant, in no acute distress. [address] [address] CONSULTATION Name: CONSTANTINO LAIRD Room #: 424-P [facility] IN M.R.#: [id number] Admission: 11/21/17 Attend Phys: Rolando Jaime MD Discharge: Date of : 33 Report #: [id number] SKIN: Remarkable for a decubitus wound to her right sacral region. No purulent drainage. Did have surrounding erythema. HEENT: EYES: Unremarkable. Mouth: Dentition in reasonable repair, had white hairy tongue with debris. No mucositis to the buccal mucosa or sublingual regions. Oropharynx was unremarkable. NECK: Supple. LUNGS: Crackles heard in the right mid posterior chest. No consolidation. HEART: Regular, without murmur. ABDOMEN: Soft, nontender, no hepatosplenomegaly or mass. PEG site was unremarkable. EXTREMITIES: Unremarkable. LABORATORY STUDIES: Sodium 139, potassium 3.9, bicarbonate 34, creatinine 0.6. Liver function test normal. Hemoglobin 9.1, platelet count 409,000. WBC 7.7. Influenza antigen was negative. Chest x-ray showed right middle lobe atelectasis and infiltrate, which appears to be a right upper lobe infiltrate as evident on CT scan. Video swallow was positive. IMPRESSION: An 81-year-old with recurring aspiration pneumonia, now with right upper lobe infiltrate, leukocytosis, hypoxemia, all of which has improved. She has been on multiple antibiotics with no organisms identified. Has evidence of esophageal disease and gastric emptying issues. She has been evaluated by GI service for extending G-tube to GJ tube. There is a decubitus to her right ischial region, which does not appear to be infected. RECOMMENDATIONS: We will continue with antibiotic coverage doxycycline. Add Imodium. Continue with aspiration precautions. Agree with feeding jejunostomy through the G-tube if possible and followup chest x-ray to clear. <ELECTRONICALLY SIGNED> By: Mu Antoine MD 11/29/17 1622 1542 2359 Mu Antoine MD /nt
--- NOTE | ~2017-11-21 | HC ---
[facility] [place] [address] CONSULTATION Name: CONSTANTINO LARID Room #: 424-P ADM IN M.R.#: [id number] Admission: 11/21/17 Attend Phys: Rolando Jaime MD Discharge: Date of : 33 Report #: [id number] THIS REPORT FOR: //name// CC: Samuel Jaime DATE OF SERVICE: 11/24/2017 HISTORY OF PRESENT ILLNESS: An 82-year-old white female previously known to me, admitted with pneumonia, noted to have syncope, has COPD and chronic dysphagia. She has a prior PEG tube that has been placed. Speech therapy is recommending n.p.o. She continues in treatment for the pneumonia. We are seeing her in rehabilitation medicine consultation. PAST MEDICAL HISTORY: Includes hypertension, coronary artery disease post-stenting, COPD on home O2 of 2.5-3 liters, dyslipidemia, dysphagia, status post PEG tube placement, CHF, peripheral arterial disease, status post mesenteric stent placement. MEDICATIONS: Please see the full medication listing. FAMILY HISTORY: Noncontributory. SOCIAL HISTORY: She lives in a house alone, two steps in, 14 inside. Her son from [place] is apparently staying with her now. ALLERGIES: PENICILLIN, PREGABALIN, AND SULFA. REVIEW OF SYSTEMS: Some dyspepsia, but no current complaints of chest pain, shortness of breath, abdominal discomfort. No focal extremity pain complaints. PHYSICAL EXAMINATION: GENERAL: An 82-year-old white female in no obvious distress. VITAL SIGNS: Last recorded temperature 98, pulse 82, respirations 18, blood pressure 108/56. She is alert, pleasant. HEENT: Appeared to be benign. NEUROLOGIC: Cranial nerves are grossly intact. Facies are symmetric. EXTREMITIES: She has functional range of motion of both upper extremities without obvious focal weakness. DTRs are trace to 1. Lower extremities, no focal calf swelling, functional range of motion with strength grade 4+/5. DTRs are trace to 1. She did quite well, ambulating 300 feet standby assistance. Transfers are standby assistance. ASSESSMENT: An 82-year-old white female with the following problem list: 1. Pneumonia. 2. Syncopal episode. [facility] [address] [place] [address] CONSULTATION Name: CONSTANTINO LAIRD Room #: 424-P [facility] IN .R.#: [id number] Admission: 11/21/17 Attend Phys: Rolando Jaime MD Discharge: Date of : 33 Report #: [id number] 3. Chronic obstructive pulmonary disease. 4. Chronic dysphagia. She is status post percutaneous endoscopic gastrostomy tube placement. 5. Chronic obstructive pulmonary disease. PLAN: She actually did quite well with her functional mobility and ambulation. Discussion with physical therapy. She appears too high level to warrant another acute in-hospital inpatient rehabilitation stay plus she does not have a new diagnosis as she was recently on the acute inpatient rehab carter last June. As she is doing quite well with her gait and functional mobility would hope that she could return directly home with some home healthcare rather than having to go to a skilled facility. Thank you for asking us to assist in this patient's care. <ELECTRONICALLY SIGNED> By: Kt Avery MD 11/25/17 1306 1457 0000 Kt Avery MD /PMT
[~2017-11-21 07:04] MED LIST changes: -CATAPRES0.1 MG PER TUBE; -CEFDINIR S250 MG/5 M PER TUBE; -CLONIDINE0.1 PO; -FAMOTIDINE40 MG/5 ML PER TUBE; -FERROUS SU220 MG/52 PER TUBE; -FLAGYL500 MG PER TUBE; -FLUOXETINE20 MG/5 M1 PER TUBE; -HYDRALAZINE 10M10 MG PO; -HYDROCODONE-ACE15 ML PO; -HYDROCODONE-AP1 EAC6 PO; -IPRAT-ALBUT 0.5-3 ML INH; -IRON325 PER TUBE; -KEPPRA 500 MG500 M1 PO; -LOPRESSOR25 PER TUBE; -METOPROLOL TART25 MG PO; -OXYGEN MISCELL; -PEPCID20 MG PO; -PROZAC10 MG PO; -PULMICORT0.25 MG/3 INH; -SCOPOLAMINE1 EACH TRANSDERM; -SYNTHROID100 MC1 PO; -SYNTHROID50 MCG PO; -TRAZODONE HCL50 MG PER TUBE
[2017-11-21 07:05] VITALS: BP 159/54
[2017-11-21 07:42] LABS: HEMATOCRIT 32.7 % (37.0-47.0); HEMOGLOBIN 10.2 gm/dL (12.0-15.0); MCHC 31.2 g/dL (28.0-37.0); MCV 73.5 fL (80.0-100.0); RBC 4.45 mil/uL (4.20-5.00); RDW 19.3 % (10.5-14.5); WBC 15.3 thou/uL (4.0-11.0)
[2017-11-21 07:52] LABS: ANION GAP 6 mmol/L (7-16); BUN 16 mg/dL (7-18); CALCIUM 8.8 mg/dL (8.5-10.1); CHLORIDE 98 mmol/L (98-107); CO2 34 mmol/L (21-32); CREATININE 0.7 mg/dL (0.6-1.0); GLUCOSE 110 mg/dL (74-106); POTASSIUM 3.6 mmol/L (3.5-5.1); SODIUM 138 mmol/L (136-145)
[2017-11-21 08:01] LABS: ALBUMIN 3.1 g/dL (3.4-5.0); MAGNESIUM 1.8 mg/dL (1.8-2.4); SGOT 30 U/L (15-37); SGPT 39 U/L (30-65); TOTAL BILIRUBIN 0.5 mg/dL (<0.1-1.0); TOTAL PROTEIN 6.4 g/dL (6.4-8.2); TROPONIN-I < 0.04 ng/mL (<0.06)
[2017-11-21] MEDS ORDERED: DOXYCYCLINE 10100 MG PO (08:43)
[2017-11-21 09:21] VITALS: BP 150/72
[2017-11-21 09:43] VITALS: BP 148/73
[2017-11-21 10:55] VITALS: BP 170/70
[2017-11-21 15:25] VITALS: BP 131/50
[2017-11-21 19:53] VITALS: BP 135/47
[2017-11-22 00:13] VITALS: BP 109/54
[2017-11-22 04:11] VITALS: BP 133/66
[2017-11-22 05:51] LABS: ABSOLUTE NEUTROPHILS 13.5 thou/uL (1.4-8.2); BASOPHILS 0.9 % (0.0-2.0); EOSINOPHILS 0.3 % (0.0-3.0); HEMATOCRIT 28.5 % (37.0-47.0); HEMOGLOBIN 9.1 gm/dL (12.0-15.0); LYMPHOCYTES 6.8 % (24.0-44.0); MCH 23.3 pg (26.0-34.0); MCV 72.9 fL (80.0-100.0); MONOCYTES 9.4 % (1.0-8.0); POLYS 82.6 % (36.0-66.0); RBC 3.91 mil/uL (4.20-5.00); RDW 19.4 % (10.5-14.5); WBC 16.3 thou/uL (4.0-11.0)
[2017-11-22 05:54] LABS: PLATELET COUNT 259 thou/uL (150-400)
[2017-11-22 06:10] LABS: CALCIUM 8.4 mg/dL (8.5-10.1); CREATININE 0.6 mg/dL (0.6-1.0)
[2017-11-22 07:45] VITALS: BP 98/52
[2017-11-22 07:55] LABS: ANISOCYTOSIS 1+; OVALOCYTES FEW; POIKILOCYTOSIS 1+; POLYCHROMASIA SLIGHT
[2017-11-22 07:56] LABS: HYPOCHROMASIA 1+
[2017-11-22 16:45] VITALS: BP 148/74
[2017-11-22 19:43] VITALS: BP 107/46
[2017-11-23 04:24] VITALS: BP 122/61
[2017-11-23 07:01] LABS: ABSOLUTE NEUTROPHILS 12.3 thou/uL (1.4-8.2); BASOPHILS 0.2 % (0.0-2.0); HEMATOCRIT 26.9 % (37.0-47.0); HEMOGLOBIN 8.5 gm/dL (12.0-15.0); LYMPHOCYTES 10.1 % (24.0-44.0); MCHC 31.5 g/dL (28.0-37.0); MCV 72.9 fL (80.0-100.0); MONOCYTES 8.7 % (1.0-8.0); RBC 3.68 mil/uL (4.20-5.00); RDW 19.3 % (10.5-14.5); WBC 15.2 thou/uL (4.0-11.0)
[2017-11-23 07:06] LABS: CALCIUM 8.3 mg/dL (8.5-10.1); CREATININE 0.6 mg/dL (0.6-1.0); POTASSIUM 3.9 mmol/L (3.5-5.1)
[2017-11-23 07:30] VITALS: BP 146/78
[2017-11-23 07:38] LABS: PLATELET COUNT 355 thou/uL (150-400)
[2017-11-23 08:14] LABS: ANISOCYTOSIS 1+; MICROCYTES SLIGHT; OVALOCYTES FEW; POIKILOCYTOSIS 1+
[2017-11-23 12:00] VITALS: BP 165/54
[2017-11-23 15:30] VITALS: BP 125/60
[2017-11-23 20:30] VITALS: BP 123/54
[2017-11-24 04:30] VITALS: BP 143/79
[2017-11-24 05:07] LABS: ALBUMIN 2.3 g/dL (3.4-5.0); ANION GAP 6 mmol/L (7-16); BUN 19 mg/dL (7-18); CALCIUM 8.1 mg/dL (8.5-10.1); CHLORIDE 101 mmol/L (98-107); CHOLESTEROL 91 mg/dL (<200); CO2 30 mmol/L (21-32); CREATININE 0.5 mg/dL (0.6-1.0); GLUCOSE 103 mg/dL (74-106); HDL CHOLESTEROL 52 mg/dL (>40); LDL CHOLESTEROL 33 mg/dL (<100); MAGNESIUM 1.8 mg/dL (1.8-2.4); POTASSIUM 4.2 mmol/L (3.5-5.1); SGOT 23 U/L (15-37); SGPT 29 U/L (30-65); SODIUM 137 mmol/L (136-145); TC:HDL 1.8 Ratio (Not establshd); TOTAL BILIRUBIN 0.2 mg/dL (<0.1-1.0); TOTAL PROTEIN 5.3 g/dL (6.4-8.2); TRIGLYCERIDE 30 mg/dL (<150); VLDL 6 mg/dL (<40)
[2017-11-24 05:13] LABS: SERUM ASSESSMENT Clear
[2017-11-24 05:46] LABS: FERRITIN 41 ng/mL (8-252)
[2017-11-24 08:54] VITALS: BP 108/56
[2017-11-24 16:00] VITALS: BP 141/78
[2017-11-24 20:50] VITALS: BP 110/61
[2017-11-25 05:30] VITALS: BP 147/72
[2017-11-25 07:30] VITALS: BP 116/51
[2017-11-25 15:45] VITALS: BP 135/71
[2017-11-25 16:14] VITALS: BP 135/71
[2017-11-25 20:30] VITALS: BP 146/73
[2017-11-26 05:25] VITALS: BP 125/62
[2017-11-26 16:05] VITALS: BP 141/77
[2017-11-26 20:24] VITALS: BP 141/70
[2017-11-27] VITALS (7 sets, daily range): BP systolic 103–165; BP diastolic 36–107
[2017-11-27 05:34] LABS: HEMATOCRIT 28.2 % (37.0-47.0); HEMOGLOBIN 9.1 gm/dL (12.0-15.0); MCH 23.4 pg (26.0-34.0); MCHC 32.2 g/dL (28.0-37.0); MCV 72.7 fL (80.0-100.0); RBC 3.87 mil/uL (4.20-5.00); WBC 7.7 thou/uL (4.0-11.0)
[2017-11-27 05:52] LABS: ALBUMIN 2.3 g/dL (3.4-5.0); CALCIUM 8.3 mg/dL (8.5-10.1); CREATININE 0.6 mg/dL (0.6-1.0); POTASSIUM 3.9 mmol/L (3.5-5.1); TOTAL BILIRUBIN 0.2 mg/dL (<0.1-1.0); TOTAL PROTEIN 5.2 g/dL (6.4-8.2)
[2017-11-27] MEDS ORDERED: FLAGYL500 MG PER TUBE (09:36)
[2017-11-27] MEDS ORDERED: LEVAQUIN 500 M500 M2 PO (09:38)
[2017-11-28 04:30] VITALS: BP 129/78
[2017-11-28 15:05] VITALS: BP 138/79
[2017-11-28 20:26] VITALS: BP 144/90
[2017-11-29 03:15] VITALS: BP 143/94
[2017-11-29 07:31] VITALS: BP 119/63
[2017-11-29 16:37] VITALS: BP 172/77
[2017-11-29 17:36] VITALS: BP 157/77
[2017-11-29 19:00] VITALS: BP 173/81
[2017-11-30 03:44] VITALS: BP 119/56
[2017-11-30 04:05] VITALS: BP 158/91
[2017-11-30 07:15] VITALS: BP 122/64
[2017-11-30] MEDS ORDERED: FAMOTIDINE40 MG/5 ML PER TUBE (11:56)
[2017-11-30] MEDS ORDERED: CEFDINIR300 MG PO (11:56)
[2017-12-05 11:52] VITALS: BP 135/71
[2018-02-28] MEDS ORDERED: PULMICORT0.25 MG/3 INH (02:48)
[2018-02-28] MEDS ORDERED: TRAZODONE HCL50 MG PER TUBE (02:48)
[2018-02-28] MEDS ORDERED: OXYGEN MISCELL (02:52)
[2018-04-01] MEDS ORDERED: PROZAC10 MG PO (08:00)
[2018-04-01] MEDS ORDERED: BROVANA15 MCG/2 M INH (08:01)
[2018-04-01] MEDS ORDERED: HYDROCODONE-ACE15 ML PO (08:57)
[2018-07-07] MEDS ORDERED: HYDRALAZINE 10M10 MG PO (12:08)
[2018-07-07] MEDS ORDERED: PEPCID20 MG PO (12:08)
[2018-07-07] MEDS ORDERED: FERROUS SU220 MG/52 PER TUBE (12:08)
== END 2017-11-30 13:02 | disposition home health service (06) | DRG 177 ==
LOC: ER 07:04 → 4E 09:01 → EROBS 09:01 → 4E 09:44 → ENTRNSPT 11-30 12:48 → EDTRNSPTSTS 11-30 12:50 → 4E 11-30 13:02
PROVIDERS: Emergency Medicine; Hospitalist; Internal Medicine Endocrinology, Diabetes & Metabolism; Registered Nurse
DX: J69.0 Pneumonitis due to inhalation of food and vomit (principal); E43 Unspecified severe protein-calorie malnutrition; J96.10 Chronic respiratory failure, unspecified whether with hypoxia or hypercapnia; Z68.1 Body mass index [BMI] 19.9 or less, adult; M32.9 Systemic lupus erythematosus, unspecified; I10 Essential (primary) hypertension; G62.9 Polyneuropathy, unspecified; E78.5 Hyperlipidemia, unspecified; J44.9 Chronic obstructive pulmonary disease, unspecified; I73.9 Peripheral vascular disease, unspecified; D72.829 Elevated white blood cell count, unspecified; I25.10 Atherosclerotic heart disease of native coronary artery without angina pectoris; Z60.2 Problems related to living alone; I48.0 Paroxysmal atrial fibrillation; F32.9 Major depressive disorder, single episode, unspecified; I71.4 Abdominal aortic aneurysm, without rupture; R13.12 Dysphagia, oropharyngeal phase; I65.29 Occlusion and stenosis of unspecified carotid artery; K31.84 Gastroparesis; D50.9 Iron deficiency anemia, unspecified; Z87.891 Personal history of nicotine dependence; Z95.5 Presence of coronary angioplasty implant and graft; Z98.49 Cataract extraction status, unspecified eye; Z93.1 Gastrostomy status; Z88.0 Allergy status to penicillin; Z88.2 Allergy status to sulfonamides; Z88.8 Allergy status to other drugs, medicaments and biological substances; Z82.49 Family history of ischemic heart disease and other diseases of the circulatory system; Z79.899 Other long term (current) drug therapy
CPT/HCPCS: 10783

== ENCOUNTER → 2018-01-18 | Outpatient (CLI) | payer OTHER, MEDICARE ==
[~2018-01-18] MED LIST changes: +CATAPRES0.1 MG PER TUBE; +CEFDINIR S250 MG/5 M PER TUBE; +CLONIDINE0.1 PO; +FAMOTIDINE40 MG/5 ML PER TUBE; +FERROUS SU220 MG/52 PER TUBE; +FLAGYL500 MG PER TUBE; +FLUOXETINE20 MG/5 M1 PER TUBE; +HYDRALAZINE 10M10 MG PO; +HYDROCODONE-ACE15 ML PO; +HYDROCODONE-AP1 EAC6 PO; +IPRAT-ALBUT 0.5-3 ML INH; +IRON325 PER TUBE; +KEPPRA 500 MG500 M1 PO; +LOPRESSOR25 PER TUBE; +METOPROLOL TART25 MG PO; +OXYGEN MISCELL; +PEPCID20 MG PO; +PROZAC10 MG PO; +PULMICORT0.25 MG/3 INH; +SCOPOLAMINE1 EACH TRANSDERM; +SYNTHROID100 MC1 PO; +SYNTHROID50 MCG PO; +TRAZODONE HCL50 MG PER TUBE
== END ==
LOC: RAD 13:03 → SPEECH 13:03
DX: R13.13 Dysphagia, pharyngeal phase (principal)

== ENCOUNTER → 2018-01-19 | Outpatient (CLI) | payer OTHER, MEDICARE | LOC: RAD 09:51 | DX: R13.19 Other dysphagia (principal); Z88.0 Allergy status to penicillin; Z88.1 Allergy status to other antibiotic agents ==

== ENCOUNTER → 2018-01-23 | Outpatient (CLI) | payer OTHER, MEDICARE | LOC: RAD 15:42 | DX: J98.11 Atelectasis (principal) ==

== ENCOUNTER → 2018-02-13 | Outpatient (CLI) | payer OTHER, MEDICARE ==
[~2018-02-13] MED LIST changes: -CATAPRES0.1 MG PER TUBE; -CEFDINIR S250 MG/5 M PER TUBE; -CLONIDINE0.1 PO; -FERROUS SU220 MG/52 PER TUBE; -FLUOXETINE20 MG/5 M1 PER TUBE; -HYDRALAZINE 10M10 MG PO; -HYDROCODONE-ACE15 ML PO; -HYDROCODONE-AP1 EAC6 PO; -IPRAT-ALBUT 0.5-3 ML INH; -IRON325 PER TUBE; -KEPPRA 500 MG500 M1 PO; -LOPRESSOR25 PER TUBE; -METOPROLOL TART25 MG PO; -OXYGEN MISCELL; -PEPCID20 MG PO; -PROZAC10 MG PO; -PULMICORT0.25 MG/3 INH; -SCOPOLAMINE1 EACH TRANSDERM; -SYNTHROID100 MC1 PO; -SYNTHROID50 MCG PO; -TRAZODONE HCL50 MG PER TUBE
== END ==
LOC: RAD 14:29
DX: J98.4 Other disorders of lung (principal); M41.86 Other forms of scoliosis, lumbar region; J44.9 Chronic obstructive pulmonary disease, unspecified; I48.91 Unspecified atrial fibrillation

== ENCOUNTER 2018-02-16 12:32 | Observation (INO) | payer OTHER, MEDICARE ==
[~2018-02-16] VITALS: Ht 154.9 cm; Wt 44.5 kg
--- NOTE | ~2018-02-16 | 2DMMODE ---
[address] [address] 2 D/M-MODE ECHOCARDIOGRAM Name: CONSTANTINO LAIRD Room #: 424-P ADM IN M.R.#: [id number] Admission: 02/16/18 Attend Phys: Pedrito Lizama MD Discharge: Date of : 33 Date of Service: 02/17/18 0954 Report #: [id number] THIS REPORT FOR: //name// APPROVED REPORT Study performed: 02/17/2018 08:27:52 EXAM: Comprehensive 2D, Doppler, and color-flow Echocardiogram Patient Location: Bedside Room #: 424 Status: routine BSA: 1.48 HR: 88 bpm BP: 129/73 mmHg Other Information Study Quality: Good Indications COPD Dyspnea CAD Hypertension/HDD Left Ventricle The left ventricle is normal size. There is normal left ventricular wall thickness. The left ventricular systolic function is normal. The left ventricular ejection fraction is within the normal range. LVEF is 55-60%. Right Ventricle The right ventricle is normal size. The right ventricular systolic function is normal. Atria The left atrium size is normal. The right atrium size is normal. Aortic Valve The aortic valve is mildly sclerotic Mitral Valve Mild mitral annular calcification Tricuspid Valve [address] [address] 2 D/M-MODE ECHOCARDIOGRAM Name: CONSTANTINO LAIRD Room #: 424-P ADM IN M.R.#: [id number] Admission: 02/16/18 Attend Phys: Pedrito Lizama MD Discharge: Date of : 33 Date of Service: 02/17/1854 Report #: [id number] The tricuspid valve is normal in structure. Great Vessels The aortic root is normal in size. Pericardium There is no pericardial effusion. <Conclusion> Abbreviated echo. No Doppler The left ventricular systolic function is normal. LVEF is 55-60%. The aortic valve is mildly sclerotic Mild mitral annular calcification There is no pericardial effusion. <ELECTRONICALLY SIGNED> By: Greg Worrell MD, FACC 02/17/1854 3 3 Greg Worrell MD, FACC /INF
--- NOTE | ~2018-02-16 | EKG ---
[address] [address] ELECTROCARDIOGRAM REPORT Name: CONSTANTINO LAIRD Room #: 424-P [facility] M.R.#: [id number] Admission: 02/16/18 Attend Phys: Pedrito Lizama MD Discharge: Date of : 33 Report #: [id number] THIS REPORT FOR: //name// [facility] ED Test Date: 2018-02-16 Test Time: 12:34:16 Pat Name: CONSTANTINO LAIRD Department: Room: [facility] Gender: F Equity Holder: MALCOLM : 1935 Requested By: Dario Jones Order Number: [id number] MD: Greg Worrell Measurements Intervals [place] Rate: 80 P: 82 GA: 145 QRS: 69 QRSD: 71 T: 54 QT: 377 QTc: 435 Interpretive Statements Sinus rhythm Atrial premature complexes in couplets Possible anteroseptal infarct, age indeterminate Compared to ECG 11/27/2017 10:39:03 Atrial premature complex(es) now present Electronically Signed On 02-17-2018 8:20:08 CDT by Greg Worrell [email or web address] <ELECTRONICALLY SIGNED> By: Greg Worrell MD, [facility] 02/17/18 0820 1234 1234 Greg Worrell MD, [facility] /EPI
[2018-02-16 12:33] VITALS: BP 176/101
[2018-02-16 13:15] LABS: CALCIUM 9.2 mg/dL (8.5-10.1); CREATININE 0.9 mg/dL (0.6-1.0); POTASSIUM 4.1 mmol/L (3.5-5.1)
[2018-02-16 13:21] LABS: ALBUMIN 3.6 g/dL (3.4-5.0); TOTAL BILIRUBIN 0.2 mg/dL (<0.1-1.0)
[2018-02-16 13:52] LABS: ABSOLUTE NEUTROPHILS 5.4 thou/uL (1.4-8.2); BASOPHILS 0.7 % (0.0-2.0); EOSINOPHILS 0.4 % (0.0-3.0); HEMATOCRIT 30.2 % (37.0-47.0); HEMOGLOBIN 9.8 gm/dL (12.0-15.0); LYMPHOCYTES 11.6 % (24.0-44.0); MCH 25.4 pg (26.0-34.0); MCHC 32.6 g/dL (28.0-37.0); MCV 77.8 fL (80.0-100.0); MONOCYTES 7.9 % (1.0-8.0); PLATELET COUNT 208 thou/uL (150-400); POLYS 79.4 % (36.0-66.0); RBC 3.88 mil/uL (4.20-5.00); RDW 18.9 % (10.5-14.5); WBC 6.8 thou/uL (4.0-11.0)
[2018-02-16 16:30] VITALS: BP 154/78
[2018-02-16] MEDS ORDERED: SYNTHROID50 MCG PO (16:34)
[2018-02-16] MEDS ORDERED: IRON325 PER TUBE (16:35)
[2018-02-16] MEDS ORDERED: CEFDINIR S250 MG/5 M PER TUBE (16:37)
[2018-02-16 16:54] VITALS: BP 148/90
[2018-02-16 19:09] LABS: URINE BILIRUBIN NEGATIVE (Negative); URINE BLOOD NEGATIVE (Negative); URINE CLARITY CLEAR; URINE COLOR YELLOW; URINE GLUCOSE-RANDOM* NEGATIVE (Negative); URINE KETONES NEGATIVE (Negative); URINE LEUKOCYTES-REFLEX NEGATIVE (Negative); URINE NITRITE-REFLEX NEGATIVE (Negative); URINE PROTEIN (DIPSTICK) NEGATIVE (Negative); URINE UROBILINOGEN 0.2 E.U./dl (0.2-1.0)
[2018-02-16 19:13] VITALS: BP 168/88
[2018-02-17 03:55] VITALS: BP 129/73
[2018-02-17 08:10] VITALS: BP 150/79
[2018-02-17 10:49] VITALS: BP 150/79
[2018-02-17] MEDS ORDERED: SYNTHROID50 MCG PO (11:01)
[2018-02-17] MEDS ORDERED: LIPITOR80 MG PO (11:01)
[2018-02-17] MEDS ORDERED: PACERONE 200 M200 M1 PO (11:01)
[2018-02-17] MEDS ORDERED: CEFDINIR300 MG PO (11:01)
[2018-02-17] MEDS ORDERED: CYMBALTA60 MG PO (11:01)
[2018-02-17] MEDS ORDERED: FAMOTIDINE40 MG/5 ML PER TUBE (11:01)
[2018-02-17] MEDS ORDERED: MARINOL 2.5 MG2.5 M1 PO (11:01)
[2018-02-17] MEDS ORDERED: MUCINEX600 MG PO (11:01)
[2018-02-17] MEDS ORDERED: SPIRIVA INH (11:01)
[2018-02-17] MEDS ORDERED: ACETAMINOPHEN325 M1 PO (11:01)
[2018-02-17] MEDS ORDERED: GABAPENTIN 100100 MG PO (11:01)
[2018-02-17] MEDS ORDERED: MIRALAX17 GM PO (11:01)
[2018-02-17] MEDS ORDERED: REGLAN 5 MG TAB5 MG PO (11:01)
[2018-02-17] MEDS ORDERED: ALBUTEROL2.5 MG/0.1 INH (11:01)
[2018-02-17] MEDS ORDERED: DUONEB 2.5-0.5 M3 ML INH (11:01)
[2018-02-17] MEDS ORDERED: IRON325 PER TUBE (11:01)
[2018-02-17 12:49] VITALS: BP 150/79
== END 2018-02-17 11:11 | disposition home or self-care (01) ==
LOC: ER 12:32 → EROBS 14:57 → 4E 17:34
PROVIDERS: Emergency Medicine
DX: J96.10 Chronic respiratory failure, unspecified whether with hypoxia or hypercapnia (principal); E86.0 Dehydration; R53.1 Weakness; J44.9 Chronic obstructive pulmonary disease, unspecified; I25.10 Atherosclerotic heart disease of native coronary artery without angina pectoris; E78.5 Hyperlipidemia, unspecified; I10 Essential (primary) hypertension; M32.9 Systemic lupus erythematosus, unspecified; I73.9 Peripheral vascular disease, unspecified; G62.9 Polyneuropathy, unspecified; I48.0 Paroxysmal atrial fibrillation; R13.10 Dysphagia, unspecified; E03.9 Hypothyroidism, unspecified; G89.29 Other chronic pain; R10.9 Unspecified abdominal pain; E46 Unspecified protein-calorie malnutrition; R53.81 Other malaise; Z95.5 Presence of coronary angioplasty implant and graft; Z87.891 Personal history of nicotine dependence; Z99.81 Dependence on supplemental oxygen; Z68.1 Body mass index [BMI] 19.9 or less, adult

== ENCOUNTER 2018-04-02 23:38 | Inpatient (IN) | payer OTHER, MEDICARE ==
[~2018-04-02] VITALS: Ht 157.5 cm; Wt 49.4 kg
--- NOTE | ~2018-04-02 | HC ---
[facility] [place] [address] CONSULTATION Name: CONSTANTINO LAIRD Room #: 218-P ADM IN M.R.#: [id number] Admission: 04/03/18 Attend Phys: Tay Barrios MD Discharge: Date of : 33 Report #: [id number] THIS REPORT FOR: //name// CC: Tay Barrios Samuel Box DATE OF SERVICE: 04/05/2018 HISTORY OF PRESENT ILLNESS: The patient is an 82-year-old white female with a history of syncope, had COPD on O2 4 liters, premorbidly at home. She was found down by family and there was a concern as to whether she may have had some orthostasis. While in the Emergency Department, she had what appeared to be a syncopal episode with unresponsiveness and right gaze deviation while up in the bathroom. It lasted 30-60 seconds. She was seen by Neurology. MRI was negative. EEG was nonspecific. It was felt that she likely had an actual seizure disorder without obvious etiology. Dr. Ellis in Neurology is recommending a trial of Keppra, which she is on. She has some right shoulder bursitis that has been bothering her. We are seeing her in rehabilitation medicine consultation. PAST MEDICAL HISTORY: Includes aspiration pneumonia, prior esophageal dilatation. She has chronic dysphagia is status post chronic PEG tube. She gives herself her PEG tube feedings. She was on 4 liters nasal prong O2 for her COPD at home. ALLERGIES: See the noted list. MEDICATIONS: As listed as well. These include her vitamins, herbals, and supplements. HABITS: Former smoker, quit greater than a year ago. No history of alcohol abuse. SOCIAL HISTORY: She lives in a house. Her son is living there with her. There is one step in. She was previously independent. She has a standard cane and a front-wheeled walker. REVIEW OF SYSTEMS: No current complaints of chest pain, shortness of breath, abdominal discomfort. Has some complaints of generalized weakness. PHYSICAL EXAMINATION: GENERAL: An 82-year-old thin white female in obvious distress. VITAL SIGNS: Last recorded temperature 98.4, pulse 92, respirations 16, blood pressure 88/47. She is on nasal prong O2. HEENT: Facies are symmetric. She appears appropriate. EXTREMITIES: She has the PEG tube in place. Functional range of motion of the [address] [address] CONSULTATION Name: CONSTANTINO LAIRD Room #: 218-P [facility] IN M.R.#: [id number] Admission: 04/03/18 Attend Phys: Tay Barrios MD Discharge: Date of : 33 Report #: [id number] left upper extremity without focal weakness. She favors that right shoulder with the noted bursitis, but appears to be moving a little better. She can actively abduct to about 60-70 degrees. In her lower extremities, there is no focal calf swelling. Strength appears to be a grade 4 to 4-/5. DTRs are trace. She now is contact guard with supine to sit. She ambulated 200 feet with a cane with contact guard assistance. ASSESSMENT: An 82-year-old white female previously known to me with the following problem list: 1. Seizure with unresponsiveness witnessed in the Emergency Department. Negative workup. Neurology is involved and she is on Keppra. 2. Syncopal episode, question vasovagal thought to be seizure episode versus orthostasis. Cardiology is involved and favoring a loop versus 2-week event monitor upon discharge. 3. Chronic 4 liters nasal cannula premorbidly. 4. Chronic dysphagia with PEG tube. 5. Paroxysmal atrial fibrillation. 6. Peripheral vascular disease. 7. History of lupus. PLAN: The patient was on the [address] [place] [address] inpatient rehab carter last June. At this point, I am not seeing a new acute inpatient rehabilitation diagnosis to qualify for another acute inpatient rehabilitation stay. Note that other options are being considered as well. By: 1226 191 Kt Avery MD /nt
--- NOTE | ~2018-04-02 | EKG ---
[address] [address] ELECTROCARDIOGRAM REPORT Name: CONSTANTINO LAIRD Room #: 218-P ADM IN M.R.#: [id number] Admission: 04/03/18 Attend Phys: Tay Barrios MD Discharge: Date of : 33 Report #: [id number] THIS REPORT FOR: //name// [facility] ED Test Date: 2018-04-03 Test Time: 02:10:34 Pat Name: CONSTANTINO LAIRD Department: Room: 218 P Gender: F Director Digital Marketing: DAIN : 1935 Requested By: Tay Barrios Order Number: [id number] MD: Thomas Hamilton Measurements Intervals [place] Rate: 74 P: 86 RI: 116 QRS: 82 QRSD: 90 T: 55 QT: 410 QTc: 455 Interpretive Statements Sinus rhythm Borderline short RI interval Borderline right axis deviation Compared to ECG 04/01/2018 08:30:57 No significant changes Electronically Signed On 04-03-2018 19:50:24 CDT by Thomas Hamilton [email or web address] <ELECTRONICALLY SIGNED> By: Thomas Hamilton MD 04/03/18 1950 9 9 Thomas Hamilton MD /EPI
--- NOTE | ~2018-04-02 | HC ---
[facility] [place] [address] CONSULTATION Name: CONSTANTINO LAIRD Room #: 218-P ADM IN M.R.#: [id number] Admission: 04/03/18 Attend Phys: Tay Barrios MD Discharge: Date of : 33 Report #: [id number] THIS REPORT FOR: //name// CC: Tay Baird DATE OF SERVICE: 04/04/2018 PULMONARY CONSULTATION REFERRAL PHYSICIAN: Tay Barrios MD PRIMARY CARE PHYSICIAN: Samuel Baird MD REASON FOR REFERRAL: Dyspnea. HISTORY OF PRESENT ILLNESS: The patient is an 82-year-old white female who presents to the Emergency Room with near syncopal episode. A pulmonary consultation was requested regarding dyspnea and bronchospasm. The patient has known COPD. She is oxygen dependent. She normally is followed longitudinally by Dr. Idris Mckeon. The patient has had prior near syncopal episode in the past. She was in her usual state of health until yesterday evening when she was up going to the bathroom, she complained of weakness and right shoulder pain. She states that she has been weak for the past 3 days. The patient had an apparent syncopal episode while going to the bathroom. She does not remember anything when she was awoken. By the time, the paramedics arrived. Otherwise, no postictal symptoms. There is no urinary or stool incontinence. Since admission, the patient had complained of dyspnea. Presently, she states that she is short of breath. She denies any recent febrile illness, sore throat, productive cough. PAST MEDICAL HISTORY: Notable for COPD, oxygen dependent, on continuous O2, hypertension, coronary artery disease, paroxysmal atrial fibrillation, abdominal aortic aneurysm, peripheral artery disease involving the carotids, hyperlipidemia, past history of syncope, previous pulmonary function test showed an FEV1 of 0.6 liters, 38% predicted, chronic infiltrates, hiatal hernia, systemic lupus erythematosus. PAST SURGICAL HISTORY: Include bilateral cataract surgery, prior sinus surgery, tonsillectomy. [facility] [address] [place] [address] CONSULTATION Name: CONSTANTINO LAIRD Room #: 218-P [facility] IN ..#: [id number] Admission: 04/03/18 Attend Phys: Tay Barrios MD Discharge: Date of : 33 Report #: [id number] ALLERGIES: DOXYCYCLINE, ELIQUIS, WHICH CAUSES SWELLING; PENICILLIN CAUSES TONGUE SWELLING; PREGABALIN AND BACTRIM, WHICH CAUSE SEVERE PRURITUS AND TAPES AND ADHESIVES. MEDICATIONS: Lists are reviewed. Home inhalers include Spiriva, nebulized Brovana 15 mcg b.i.d., nebulized Pulmicort 0.25 mg b.i.d., oxygen at 4 liters of O2. FAMILY HISTORY: Notable for Alzheimer's in the mother, heart disease in the father. SOCIAL HISTORY: The patient has smoked, quit in 2012. She drinks occasionally. REVIEW OF SYSTEMS: As mentioned above, otherwise 10-point system review negative. PHYSICAL EXAMINATION: GENERAL: She is awake, alert, in mild distress. She appears mildly dyspneic. VITAL SIGNS: Temperature is 100.2 degrees Fahrenheit, pulse is 96, respiratory rate is 18, blood pressure 116/64 mmHg, saturation is 90%. HEENT: Unremarkable. NECK: Supple without lymphadenopathy or thyromegaly. CHEST: Breath sounds are fair. No obvious wheezes or rales. CARDIOVASCULAR: Normal regular rhythm, no obvious murmurs or gallop. Pulses are 2+/4+ bilaterally. BREASTS: Exam is deferred. ABDOMEN: Soft, nontender. No organomegaly or masses felt. GENITOURINARY: Deferred. RECTAL: Deferred. EXTREMITIES: There is no edema, cyanosis or clubbing. LABORATORY DATA: Chest x-ray is reviewed showing mild interstitial changes bilaterally suggestive of pulmonary fibrosis, calcified granuloma seen in the left lung field, which is grossly unchanged from prior chest x-ray of 2013. BNP is 530. Procalcitonin level is normal. Troponin is normal. EKG shows no acute changes. MRI/MRA of the carotid shows no acute changes. MRA of the te[place] of [place] was unremarkable. MRI of the brain shows no acute infarct. Age-related changes are noted. TSH is mildly abnormal at 3.744. ABG revealed pH 7.46, pCO2 of 46, pO2 of 104 on 3-1/2 liters of O2. Electrolytes normal except for bicarbonate of 34. WBC ___8900, hemoglobin is 11.4, platelets are normal. IMPRESSION: 1. Dyspnea in this 82-year-old white female likely due to underlying chronic obstructive pulmonary disease. She has what appears to be chronic interstitial lung disease suggestive for pulmonary fibrosis. She has a history of lupus, which may be consistent with radiographic findings. No obvious pneumonia is [address] [address] CONSULTATION Name: CONSTANTINO LAIRD Room #: 218-P [facility] IN M.R.#: [id number] Admission: 04/03/18 Attend Phys: Tay Barrios MD Discharge: Date of : 33 Report #: [id number] noted. With syncope, aspiration is considered given the low grade fever. 2. Syncope, etiology unclear, currently being evaluated by Neurology and Cardiology. 3. Questionable seizure disorder. 4. Chronic obstructive pulmonary disease, severe impairment, oxygen dependent. 5. Acute on chronic hypoxic respiratory failure. 6. History of lupus. 7. 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 8. Hypertension. 9. Peripheral artery disease. 10. Abdominal aortic aneurysm. 11. Chronic dysphagia, status post PEG tube placement. RECOMMENDATIONS: We will continue bronchodilators for now. With a low grade fever, I think it is reasonable to cover for possible lower respiratory tract infection and possible aspiration. Cultures will be obtained including sputum, blood cultures. With the febrile illness and symptoms, low dose pulse corticosteroids will be initiated. Deep venous thrombosis and gastrointestinal prophylaxis have been addressed. Keep saturation 90%. Thank you for this consultation. <ELECTRONICALLY SIGNED> By: Manuelito Harper MD 04/05/18 1417 1216 1919 Manuelito Harper MD /nt
--- NOTE | ~2018-04-02 | HC ---
[facility] [place] [address] CONSULTATION Name: CONSTANTINO LAIRD Room #: 218-P ADM IN M.R.#: [id number] Admission: 04/03/18 Attend Phys: Tay Barrios MD Discharge: Date of : 33 Report #: [id number] THIS REPORT FOR: //name// CC: Tay Barrios Samuel Box DATE OF SERVICE: 04/03/2018 HISTORY OF PRESENT ILLNESS: This is an 82-year-old female patient who was evaluated by me for a history of seizure. The patient said that she was not feeling well since November. Her son moves in with her. She had an episode of loud noise, followed by tonic-clonic activity. There was no tongue biting associated with it. She was confused after this happened. It lasted about 30-60 seconds. It came spontaneously, and it was followed by postictal period, and she is back to her baseline. REVIEW OF SYSTEMS: Indicate that she has multiple problems. She believes her memory is not very good, although she did reasonably well later on. She has a history of COPD, hypertension, atrial fibrillation, according to the records in the computer. Cardiology is consulted. She denies any previous episode of seizure-like activity. She does have prior history of bursitis in the right arm. She said she cannot move the shoulder very well because of that. She had episode of syncope, but does not look like she had seizures in the past. She is pretty certain that all the problem with the right arm is old. She feels depressed, and they asked them to take Prozac, and she said that makes her feel horrible. REVIEW OF SYSTEMS: I carried out a 14-point review of system and rest of them appeared to be noncontributory. She does have a cardiac history, but she does not have any new visual, ENT, GI, , musculoskeletal, constitutional, dermatological, hematological, psychiatric, throat or allergic symptom associated with present symptomatology. She does have multiple other systemic symptoms as summarized above. PAST MEDICAL HISTORY: Negative for any stroke. FAMILY HISTORY: Negative for early age strokes. SOCIAL HISTORY: She does not drink alcohol on a regular basis, and she does not smoke. PHYSICAL EXAMINATION: Indicate she is alert. She is responsive. She is oriented. Her speech, concentration, fund of knowledge and memory are at her baseline. Cranial nerve examination 2-12 is unremarkable. She has pretty significant problem in the right upper extremity, but that is old, but otherwise it is unremarkable. Her position sense is intact [place] [address] CONSULTATION Name: CONSTANTINO LAIRD Room #: 218-P [facility] IN M.R.#: [id number] Admission: 04/03/18 Attend Phys: Tay Barrios MD Discharge: Date of : 33 Report #: [id number] Reflexes are symmetrical. Tone looks unremarkable. There is no cerebellar sign. I could not have a good look at the patient's fundus. She is a thinly built individual who does not have any dysmorphic features of eyes, ears and face. Her vision and hearing looks adequate. She does not have any thyroid mass. Cardiac examination, she is going to be seen by medicare nurse and looks like she has a history of atrial fibrillation. She does have some rhonchi, but she does have a history of COPD. Pulses are difficult to feel. She has no edema, cyanosis or jaundice. Blood pressure is 156/89, respirations 16, pulse is 88, temperature is 99.1. LABORATORY DATA: Her WBC count is 7.4. Sodium is normal. Her B12 is also normal. She did not have any imaging study of the brain. IMPRESSION: This patient does appear to have had a seizure. That seizure may have been secondary to cardiac problems. If she did have rhythm abnormality that can give rise to seizure. However, we also need to exclude any primary etiology in the brain for seizure. I discussed that aspect with her. She does not have any contraindication for MRI. We will proceed with the MRI and EEG if we can. If for some reason, MRI cannot be done soon, then we will try to do a CT scan in this patient. I discussed all of it with the patient, and the patient wants to follow this plan and will follow her after MRI. Thank you very much for this referral. <ELECTRONICALLY SIGNED> By: Ronald Ellis MD 04/03/18 2020 0952 1353 Ronald Ellis MD /nt
--- NOTE | ~2018-04-02 | EEG ---
[facility] [place] [address] ELECTROENCEPHALOGRAM Name: CONSTANTINO LAIRD Room #: 218-P ADM IN M.R.#: [id number] Admission: 04/03/18 Attend Phys: Tay Barrios MD Discharge: Date of : 33 Report #: [id number] THIS REPORT FOR: //name// CC: Tay Barrios Samuel Box DATE OF SERVICE: 04/03/2018 DATE OF EE04/03/2018. The patient is being evaluated for syncope. EEG was done by placing the electrodes by standard 10-20 system of electrode placement. Both referential and sequential montages were used for recording. Background activity in this patient's EEG is about 8 Hz and 30 microvolt. The patient went to sleep that is associated with bilateral slowing and sleep spindle. Photic stimulation is unremarkable. Throughout the record, no active epileptiform activity was noticed. IMPRESSION: This patient's EEG is intermixed with some theta range slowing on both sides. That is a nonspecific abnormality which can occur with encephalopathy, effect of psychotropic medication, dementia, etc. Clinical correlation is recommended. By: 1225 1357 Ronald Ellis MD /nt
--- NOTE | ~2018-04-02 | EKG ---
[address] [address] ELECTROCARDIOGRAM REPORT Name: CONSTANTINO LAIRD Room #: 218-P ADM IN M.R.#: [id number] Admission: 04/03/18 Attend Phys: Tay Barrios MD Discharge: Date of : 33 Report #: [id number] THIS REPORT FOR: //name// [facility] ED Test Date: 2018-04-03 Test Time: 00:22:14 Pat Name: CONSTANTINO LAIRD Department: Room: Gender: F Manager Trade Marketing: JUNE : 1935 Requested By: Ryder Marc Order Number: [id number] MD: Thomas Hamilton Measurements Intervals [place] Rate: 68 P: 31 UT: 128 QRS: 68 QRSD: 86 T: 48 QT: 399 QTc: 425 Interpretive Statements Sinus rhythm Compared to ECG 04/01/2018 08:30:57 No significant changes Electronically Signed On 04-03-2018 19:50:06 CDT by Thomas Hamilton [email or web address] <ELECTRONICALLY SIGNED> By: Thomas Hamilton MD 04/03/18 1950 002 Thomas Hamilton MD /DEDRICK
[~2018-04-02 23:38] MED LIST changes: +CEFDINIR S250 MG/5 M PER TUBE; +HYDROCODONE-ACE15 ML PO; +IRON325 PER TUBE; +OXYGEN MISCELL; +PROZAC10 MG PO; +PULMICORT0.25 MG/3 INH; +SYNTHROID50 MCG PO; +TRAZODONE HCL50 MG PER TUBE
[2018-04-02 23:39] VITALS: BP 190/79
[2018-04-03] VITALS (7 sets, daily range): BP systolic 112–186; BP diastolic 63–100
[2018-04-03 00:19] LABS: ABSOLUTE NEUTROPHILS 5.1 thou/uL (1.4-8.2); BASOPHILS 0.7 % (0.0-2.0); EOSINOPHILS 0.5 % (0.0-3.0); HEMATOCRIT 39.1 % (37.0-47.0); HEMOGLOBIN 12.6 gm/dL (12.0-15.0); MCH 26.8 pg (26.0-34.0); MCHC 32.1 g/dL (28.0-37.0); MCV 83.3 fL (80.0-100.0); MONOCYTES 11.6 % (1.0-8.0); PLATELET COUNT 164 thou/uL (150-400); POLYS 69.2 % (36.0-66.0); RBC 4.69 mil/uL (4.20-5.00); RDW 17.8 % (10.5-14.5); WBC 7.4 thou/uL (4.0-11.0)
[2018-04-03 00:29] LABS: ANION GAP 2 mmol/L (7-16); BUN 25 mg/dL (7-18); CALCIUM 8.8 mg/dL (8.5-10.1); CHLORIDE 99 mmol/L (98-107); CO2 36 mmol/L (21-32); CREATININE 0.6 mg/dL (0.6-1.0); GLUCOSE 110 mg/dL (74-106); POTASSIUM 3.9 mmol/L (3.5-5.1); SODIUM 137 mmol/L (136-145)
[2018-04-03 00:38] LABS: ALBUMIN 3.3 g/dL (3.4-5.0); MAGNESIUM 1.9 mg/dL (1.8-2.4); SGOT 23 U/L (15-37); SGPT 24 U/L (30-65); TOTAL BILIRUBIN 0.3 mg/dL (<0.1-1.0); TOTAL PROTEIN 6.6 g/dL (6.4-8.2); TROPONIN-I < 0.04 ng/mL (<0.06)
[2018-04-03 03:02] LABS: FOLIC ACID 21.2 ng/mL (8.6-58.9); TSH 3.744 uIU/mL (0.358-3.740)
[2018-04-03] MEDS ORDERED: FLUOXETINE20 MG/5 M1 PER TUBE (03:18)
[2018-04-03 08:26] LABS: URINE BILIRUBIN NEGATIVE (Negative); URINE BLOOD NEGATIVE (Negative); URINE CLARITY SL CLOUDY; URINE COLOR YELLOW; URINE GLUCOSE-RANDOM* NEGATIVE (Negative); URINE KETONES NEGATIVE (Negative); URINE LEUKOCYTES-REFLEX NEGATIVE (Negative); URINE NITRITE-REFLEX NEGATIVE (Negative); URINE PROTEIN (DIPSTICK) NEGATIVE (Negative); URINE SPECIFIC GRAVITY 1.015 (1.005-1.035); URINE UROBILINOGEN 0.2 E.U./dl (0.2-1.0)
[2018-04-03 10:10] LABS: BE(vivo) 7.6 mmol/L (-2 to +3); HCO3 32.5 mmol/L (22.0-26.0); PCO2 46.7 mmHg (35.0-45.0); PO2 104.9 mmHg (80.0-100.0)
[2018-04-03 16:56] LABS: ANION GAP 5 mmol/L (7-16); BUN 18 mg/dL (7-18); CALCIUM 8.7 mg/dL (8.5-10.1); CHLORIDE 100 mmol/L (98-107); CO2 32 mmol/L (21-32); CREATININE 0.6 mg/dL (0.6-1.0); GLUCOSE 117 mg/dL (74-106); POTASSIUM 3.7 mmol/L (3.5-5.1); SODIUM 137 mmol/L (136-145); TROPONIN-I < 0.04 ng/mL (<0.06)
[2018-04-04 04:37] LABS: HEMATOCRIT 34.8 % (37.0-47.0); HEMOGLOBIN 11.4 gm/dL (12.0-15.0); MCHC 32.8 g/dL (28.0-37.0); MCV 82.4 fL (80.0-100.0); PLATELET COUNT 186 thou/uL (150-400); RBC 4.22 mil/uL (4.20-5.00); RDW 17.4 % (10.5-14.5); WBC 8.5 thou/uL (4.0-11.0)
[2018-04-04 04:44] VITALS: BP 116/64
[2018-04-04 04:47] LABS: CALCIUM 8.8 mg/dL (8.5-10.1); CREATININE 0.6 mg/dL (0.6-1.0); POTASSIUM 3.6 mmol/L (3.5-5.1)
[2018-04-04 05:18] LABS: ABSOLUTE NEUTROPHILS 6.6 thou/uL (1.4-8.2); ATYPICAL LYMPHS 1 %; METAMYELOCYTES 1 %
[2018-04-04 05:19] LABS: ANISOCYTOSIS 1+; PLATELET ESTIMATE NORMAL
[2018-04-04 07:55] VITALS: BP 136/75
[2018-04-04 11:40] VITALS: BP 134/85
[2018-04-04 16:00] VITALS: BP 171/83
[2018-04-04 20:00] VITALS: BP 152/88
[2018-04-05] VITALS (7 sets, daily range): BP systolic 88–165; BP diastolic 47–89
[2018-04-05 02:52] LABS: HEMATOCRIT 35.9 % (37.0-47.0); HEMOGLOBIN 11.6 gm/dL (12.0-15.0); MCH 26.9 pg (26.0-34.0); MCHC 32.4 g/dL (28.0-37.0); MCV 83.1 fL (80.0-100.0); PLATELET COUNT 202 thou/uL (150-400); RBC 4.32 mil/uL (4.20-5.00); RDW 17.3 % (10.5-14.5); WBC 8.8 thou/uL (4.0-11.0)
[2018-04-05 03:07] LABS: CALCIUM 8.8 mg/dL (8.5-10.1); CREATININE 0.7 mg/dL (0.6-1.0); POTASSIUM 4.1 mmol/L (3.5-5.1)
[2018-04-05 03:23] LABS: ABSOLUTE NEUTROPHILS 7.6 thou/uL (1.4-8.2); PLATELET ESTIMATE NORMAL
[2018-04-06 04:08] VITALS: BP 136/84
[2018-04-06 04:45] LABS: ABSOLUTE NEUTROPHILS 5.5 thou/uL (1.4-8.2); BASOPHILS 0.3 % (0.0-2.0); HEMATOCRIT 37.4 % (37.0-47.0); LYMPHOCYTES 11.3 % (24.0-44.0); MCHC 32.2 g/dL (28.0-37.0); MCV 83.8 fL (80.0-100.0); MONOCYTES 2.5 % (1.0-8.0); PLATELET COUNT 228 thou/uL (150-400); POLYS 85.9 % (36.0-66.0); RBC 4.47 mil/uL (4.20-5.00); RDW 17.4 % (10.5-14.5); WBC 6.4 thou/uL (4.0-11.0)
[2018-04-06 04:52] LABS: CALCIUM 8.7 mg/dL (8.5-10.1); CREATININE 0.6 mg/dL (0.6-1.0); POTASSIUM 4.3 mmol/L (3.5-5.1)
[2018-04-06 08:01] VITALS: BP 112/71
[2018-04-06 11:01] VITALS: BP 135/76
[2018-04-06] MEDS ORDERED: KEPPRA 500 MG500 M1 PO (13:41)
[2018-04-06] MEDS ORDERED: PREDNISONE 10 M10 MG PO (13:41)
[2018-04-06] MEDS ORDERED: LEVAQUIN 500 M500 M2 PO (13:41)
== END 2018-04-06 14:14 | DRG 100 ==
LOC: ER 23:38 → 2N 04-03 01:02 → EROBS 04-03 01:02 → 2N 04-03 03:01
PROVIDERS: Emergency Medicine; Hospitalist; Nurse Practitioner Family
DX: R56.9 Unspecified convulsions (principal); J96.21 Acute and chronic respiratory failure with hypoxia; J44.1 Chronic obstructive pulmonary disease with (acute) exacerbation; J84.9 Interstitial pulmonary disease, unspecified; E46 Unspecified protein-calorie malnutrition; Z68.1 Body mass index [BMI] 19.9 or less, adult; R55 Syncope and collapse; I10 Essential (primary) hypertension; I25.10 Atherosclerotic heart disease of native coronary artery without angina pectoris; I48.0 Paroxysmal atrial fibrillation; I71.4 Abdominal aortic aneurysm, without rupture; I73.9 Peripheral vascular disease, unspecified; E78.5 Hyperlipidemia, unspecified; R13.10 Dysphagia, unspecified; M62.84 Sarcopenia; Z90.3 Acquired absence of stomach [part of]; Z88.0 Allergy status to penicillin; Z88.2 Allergy status to sulfonamides; Z88.8 Allergy status to other drugs, medicaments and biological substances; Z87.891 Personal history of nicotine dependence; Z99.81 Dependence on supplemental oxygen; Z98.42 Cataract extraction status, left eye; Z98.41 Cataract extraction status, right eye; Z81.8 Family history of other mental and behavioral disorders; Z82.49 Family history of ischemic heart disease and other diseases of the circulatory system; Z95.5 Presence of coronary angioplasty implant and graft; Z90.49 Acquired absence of other specified parts of digestive tract; Z98.49 Cataract extraction status, unspecified eye; Z79.899 Other long term (current) drug therapy
CPT/HCPCS: 10081

== ENCOUNTER 2018-05-03 03:53 | Emergency (ER) | payer OTHER, MEDICARE ==
[~2018-05-03] VITALS: Ht 157.5 cm; Wt 42.8 kg
[~2018-05-03 03:53] MED LIST changes: +FLUOXETINE20 MG/5 M1 PER TUBE; +KEPPRA 500 MG500 M1 PO
[2018-05-03] MEDS ORDERED: CLONIDINE0.1 PO (07:57)
== END 2018-05-03 08:35 | disposition home or self-care (01) ==
LOC: ER 03:53
DX: R06.00 Dyspnea, unspecified (principal); R06.02 Shortness of breath; I10 Essential (primary) hypertension; J44.9 Chronic obstructive pulmonary disease, unspecified; Z90.49 Acquired absence of other specified parts of digestive tract; Z88.0 Allergy status to penicillin; Z88.2 Allergy status to sulfonamides; Z88.8 Allergy status to other drugs, medicaments and biological substances

== ENCOUNTER → 2018-05-05 | Outpatient (CLI) | payer OTHER, MEDICARE ==
[~2018-05-05] MED LIST changes: +CLONIDINE0.1 PO
== END ==
LOC: RAD 11:41
DX: J44.9 Chronic obstructive pulmonary disease, unspecified (principal)

== ENCOUNTER → 2018-05-24 | Outpatient (CLI) | payer OTHER, MEDICARE | LOC: RAD 15:05 | DX: J44.9 Chronic obstructive pulmonary disease, unspecified (principal) ==

== ENCOUNTER 2018-05-31 06:44 | Emergency (ER) | payer OTHER, MEDICARE ==
[~2018-05-31] VITALS: Ht 157.5 cm; Wt 42.6 kg
--- NOTE | ~2018-05-31 | EKG ---
[place] [address] [facility] [place] [address] ELECTROCARDIOGRAM REPORT Name: CONSTANTINO LAIRD [facility] #: [facility] [id number] Admission: 05/31/18 Attend Phys: Discharge: Date of : 31 Report #: [id number] THIS REPORT FOR: //name// [facility] ED Test Date: 2018-05-31 Test Time: 07:14:35 Pat Name: CONSTANTINO LAIRD Department: Room: Gender: F Underwater Hunter: MALCOLM : 1935 Requested By: Mirella Steele Order Number: [id number] MD: Greg Worrell Measurements Intervals [place] Rate: 101 P: 88 IN: 164 QRS: 66 QRSD: 75 T: 54 QT: 362 QTc: 470 Interpretive Statements Sinus tachycardia Biatrial enlargement Anteroseptal infarct, old Compared to ECG 04/03/2018 02:10:34 no significant change was found Electronically Signed On 05-31-2018 8:00:49 CDT by Greg Worrell [email or web address] <ELECTRONICALLY SIGNED> By: Greg Worrell MD, [facility] 05/31/18 0800 3 Greg Worrell MD, FACC /EPI
[2018-05-31 07:27] LABS: HEMATOCRIT 39.5 % (37.0-47.0); HEMOGLOBIN 13.2 gm/dL (12.0-15.0); MCH 28.7 pg (26.0-34.0); MCHC 33.4 g/dL (28.0-37.0); MCV 85.9 fL (80.0-100.0); RBC 4.59 mil/uL (4.20-5.00); RDW 15.2 % (10.5-14.5); WBC 4.5 thou/uL (4.0-11.0)
[2018-05-31 07:33] LABS: ANION GAP 2 mmol/L (7-16); BUN 18 mg/dL (7-18); CALCIUM 9.2 mg/dL (8.5-10.1); CHLORIDE 102 mmol/L (98-107); CO2 36 mmol/L (21-32); CREATININE 0.7 mg/dL (0.6-1.0); GLUCOSE 97 mg/dL (74-106); POTASSIUM 4.1 mmol/L (3.5-5.1); SODIUM 140 mmol/L (136-145)
[2018-05-31 07:42] LABS: TROPONIN-I <0.06 ng/mL (<0.06)
[2018-05-31] MEDS ORDERED: METOPROLOL TART25 MG PO (08:42)
== END 2018-05-31 10:10 | disposition home or self-care (01) ==
LOC: ER 06:44
PROVIDERS: Student in an Organized Health Care Education/Training Program
DX: I10 Essential (primary) hypertension (principal); R06.02 Shortness of breath; J44.9 Chronic obstructive pulmonary disease, unspecified; Z90.49 Acquired absence of other specified parts of digestive tract; Z87.891 Personal history of nicotine dependence; Z88.0 Allergy status to penicillin; Z88.1 Allergy status to other antibiotic agents

== ENCOUNTER 2018-06-03 18:04 | Emergency (ER) | payer OTHER, MEDICARE ==
[~2018-06-03] VITALS: Ht 152.4 cm; Wt 49.9 kg
--- NOTE | ~2018-06-03 | EKG ---
[address] [address] ELECTROCARDIOGRAM REPORT Name: CONSTANTINO LAIRD Room #: [facility] [id number] Admission: 06/03/18 Attend Phys: Discharge: 06/03/18 Date of : 31 Report #: [id number] THIS REPORT FOR: //name// [facility] ED Test Date: 2018-06-03 Test Time: 18:16:29 Pat Name: CONSTANTINO LAIRD Department: Room: Gender: F Infrastructure Technician: IVANNA : 1935 Requested By: Ryder Marc Order Number: [id number] MD: Greg Worrell Measurements Intervals [place] Rate: 85 P: 81 [place]: 111 QRS: 81 QRSD: 89 T: 53 QT: 378 QTc: 450 Interpretive Statements Sinus rhythm Borderline short [place] interval Compared to ECG 05/31/2018 07:14:35 Sinus tachycardia no longer present Electronically Signed On 06-04-2018 13:51:08 CDT by Greg Worrell [email or web address] <ELECTRONICALLY SIGNED> By: Greg Worrell MD, [facility] 06/04/18 1351 1816 15 Greg Worrell MD, FACC /EPI
[~2018-06-03 18:04] MED LIST changes: +METOPROLOL TART25 MG PO
[2018-06-03 19:01] LABS: ABSOLUTE NEUTROPHILS 6.9 thou/uL (1.4-8.2); BASOPHILS 0.5 % (0.0-2.0); EOSINOPHILS 0.8 % (0.0-3.0); HEMATOCRIT 42.3 % (37.0-47.0); HEMOGLOBIN 13.9 gm/dL (12.0-15.0); LYMPHOCYTES 18.5 % (24.0-44.0); MCH 28.5 pg (26.0-34.0); MCHC 32.9 g/dL (28.0-37.0); MCV 86.7 fL (80.0-100.0); MONOCYTES 11.8 % (1.0-8.0); PLATELET COUNT 203 thou/uL (150-400); POLYS 68.4 % (36.0-66.0); RBC 4.88 mil/uL (4.20-5.00); WBC 10.1 thou/uL (4.0-11.0)
[2018-06-03 19:16] LABS: ANION GAP 5 mmol/L (7-16); BUN 23 mg/dL (7-18); CALCIUM 9.4 mg/dL (8.5-10.1); CHLORIDE 99 mmol/L (98-107); CO2 35 mmol/L (21-32); CREATININE 0.6 mg/dL (0.6-1.0); GLUCOSE 114 mg/dL (74-106); POTASSIUM 3.6 mmol/L (3.5-5.1); SODIUM 139 mmol/L (136-145)
[2018-06-03 19:26] LABS: ALBUMIN 4.2 g/dL (3.4-5.0); SGOT 28 U/L (15-37); SGPT 33 U/L (30-65); TOTAL BILIRUBIN 0.4 mg/dL (<0.1-1.0); TOTAL PROTEIN 8.2 g/dL (6.4-8.2); TROPONIN-I <0.06 ng/mL (<0.06)
[2018-06-03] MEDS ORDERED: NORCO 5-325 TA1 EACH PO (20:25)
== END 2018-06-03 20:45 | disposition home or self-care (01) ==
LOC: ER 18:04
PROVIDERS: Emergency Medicine
DX: I10 Essential (primary) hypertension (principal); J44.9 Chronic obstructive pulmonary disease, unspecified; Z87.891 Personal history of nicotine dependence; Z90.89 Acquired absence of other organs; Z88.0 Allergy status to penicillin; Z91.048 Other nonmedicinal substance allergy status; Z88.8 Allergy status to other drugs, medicaments and biological substances; Z88.2 Allergy status to sulfonamides; Z88.1 Allergy status to other antibiotic agents

== ENCOUNTER 2018-06-06 20:15 | Inpatient (IN) | payer OTHER, MEDICARE ==
[~2018-06-06] VITALS: Ht 154.9 cm; Wt 49.0 kg
--- NOTE | ~2018-06-06 | EKG ---
[place] [address] [facility] [place] [address] ELECTROCARDIOGRAM REPORT Name: CONSTANTINO LAIRD [facility] [id number] Admission: 06/06/18 Attend Phys: Discharge: Date of : 31 Report #: [id number] THIS REPORT FOR: //name// [facility] ED Test Date: 2018-06-06 Test Time: 20:34:21 Pat Name: CONSTANTINO LAIRD Department: Room: Gender: F Electrical Unit Rebuilder: : 1935 Requested By: Destiny Vo Order Number: [id number] MD: Measurements Intervals [place] Rate: 92 P: 84 [place]: 111 QRS: 77 QRSD: 86 T: 57 QT: 377 QTc: 467 Interpretive Statements Sinus rhythm Borderline short [place] interval Borderline ST elevation, anterior leads Compared to ECG 06/03/2018 18:16:29 ST (T wave) deviation now present [email or web address] By: 33 33 Epiphany Epiphany, /EPI
[2018-06-06 20:17] VITALS: BP 146/77
[2018-06-06 21:26] LABS: ABSOLUTE NEUTROPHILS 10.6 thou/uL (1.4-8.2); BASOPHILS 0.2 % (0.0-2.0); EOSINOPHILS 0.4 % (0.0-3.0); HEMATOCRIT 36.8 % (37.0-47.0); HEMOGLOBIN 12.2 gm/dL (12.0-15.0); LYMPHOCYTES 4.9 % (24.0-44.0); MCH 28.6 pg (26.0-34.0); MCHC 33.1 g/dL (28.0-37.0); MCV 86.5 fL (80.0-100.0); MONOCYTES 8.4 % (1.0-8.0); PLATELET COUNT 198 thou/uL (150-400); POLYS 86.1 % (36.0-66.0); RBC 4.26 mil/uL (4.20-5.00); RDW 14.8 % (10.5-14.5); WBC 12.3 thou/uL (4.0-11.0)
[2018-06-06 21:30] LABS: ANION GAP 3 mmol/L (7-16); BUN 31 mg/dL (7-18); CHLORIDE 99 mmol/L (98-107); CO2 36 mmol/L (21-32); CREATININE 0.6 mg/dL (0.6-1.0); GLUCOSE 186 mg/dL (74-106); POTASSIUM 4.5 mmol/L (3.5-5.1); SODIUM 138 mmol/L (136-145)
[2018-06-06 21:36] LABS: ALBUMIN 3.4 g/dL (3.4-5.0); DIRECT BILIRUBIN < 0.1 mg/dL (<0.1-0.3); LIPASE 181 U/L (73-393); SGOT 25 U/L (15-37); SGPT 27 U/L (30-65); TOTAL BILIRUBIN 0.3 mg/dL (<0.1-1.0); TOTAL PROTEIN 6.9 g/dL (6.4-8.2)
[2018-06-06 22:49] LABS: URINE BILIRUBIN NEGATIVE (Negative); URINE BLOOD TRACE (Negative); URINE CLARITY CLOUDY; URINE COLOR YELLOW; URINE GLUCOSE-RANDOM* NEGATIVE (Negative); URINE KETONES NEGATIVE (Negative); URINE NITRITE-REFLEX NEGATIVE (Negative); URINE PROTEIN (DIPSTICK) 1+ (Negative); URINE SPECIFIC GRAVITY 1.015 (1.005-1.035); URINE UROBILINOGEN 0.2 E.U./dl (0.2-1.0)
[2018-06-06 22:52] LABS: URINE LEUKOCYTES-REFLEX 3+ (Negative)
[2018-06-06 22:56] LABS: AMORPHOUS PHOSPHATES Many /LPF (None Seen); CASTS None Seen /LPF (None Seen); MUCUS 0-3 Light strn/LPF (None Seen); SQUAMOUS 0-3 Few /LPF (0-3)
[2018-06-06 22:57] LABS: CRYSTALS None Seen /LPF (None Seen); URINE RBC 3-10 Few /HPF (0-2)
[2018-06-06 23:35] VITALS: BP 158/75
[2018-06-07 00:52] VITALS: BP 158/75
[2018-06-07] MEDS ORDERED: SYNTHROID100 MC1 PO (03:12)
[2018-06-07 04:01] VITALS: BP 140/64
[2018-06-07 07:30] VITALS: BP 99/45
[2018-06-07 16:26] VITALS: BP 186/99
[2018-06-07 19:20] VITALS: BP 134/70
[2018-06-08 03:09] LABS: GLYCOHEMOGLOBIN (HGB A1C) 5.3 % (4.8-5.6)
[2018-06-08 03:45] VITALS: BP 208/104
[2018-06-08 07:41] VITALS: BP 138/80
[2018-06-08 11:46] VITALS: BP 192/93
[2018-06-08 17:02] VITALS: BP 176/60
[2018-06-08 19:52] VITALS: BP 161/74
[2018-06-09 04:10] VITALS: BP 169/79
[2018-06-09 07:50] VITALS: BP 178/76
[2018-06-09] MEDS ORDERED: CATAPRES0.1 MG PER TUBE (08:36)
[2018-06-09] MEDS ORDERED: SYNTHROID50 MCG PO (12:08)
[2018-06-09 13:28] VITALS: BP 143/72
== END 2018-06-09 15:21 | DRG 871 ==
LOC: ER 20:15 → EROBS 22:54 → 3W 22:54
PROVIDERS: Emergency Medicine; Nurse Practitioner Acute Care
DX: A41.9 Sepsis, unspecified organism (principal); E43 Unspecified severe protein-calorie malnutrition; N39.0 Urinary tract infection, site not specified; J96.11 Chronic respiratory failure with hypoxia; B37.0 Candidal stomatitis; Z93.1 Gastrostomy status; J44.9 Chronic obstructive pulmonary disease, unspecified; I10 Essential (primary) hypertension; I25.10 Atherosclerotic heart disease of native coronary artery without angina pectoris; I73.9 Peripheral vascular disease, unspecified; R13.10 Dysphagia, unspecified; S31.000A Unspecified open wound of lower back and pelvis without penetration into retroperitoneum, initial encounter; M62.84 Sarcopenia; R62.7 Adult failure to thrive; E86.0 Dehydration; Z16.30 Resistance to unspecified antimicrobial drugs; G40.909 Epilepsy, unspecified, not intractable, without status epilepticus; G47.00 Insomnia, unspecified; Z51.5 Encounter for palliative care; E03.9 Hypothyroidism, unspecified; Z90.49 Acquired absence of other specified parts of digestive tract; Z88.0 Allergy status to penicillin; Z88.2 Allergy status to sulfonamides; Z88.8 Allergy status to other drugs, medicaments and biological substances; Z87.891 Personal history of nicotine dependence; Z95.5 Presence of coronary angioplasty implant and graft; Z82.49 Family history of ischemic heart disease and other diseases of the circulatory system; Z98.49 Cataract extraction status, unspecified eye; Z95.820 Peripheral vascular angioplasty status with implants and grafts; Z79.899 Other long term (current) drug therapy; X58.XXXA Exposure to other specified factors, initial encounter; Y93.89 Activity, other specified; Y92.89 Other specified places as the place of occurrence of the external cause; Y99.8 Other external cause status
CPT/HCPCS: 10879

== ENCOUNTER 2018-06-17 23:08 | Inpatient (IN) | payer OTHER, MEDICARE ==
[~2018-06-17] VITALS: Ht 154.9 cm; Wt 45.4 kg
--- NOTE | ~2018-06-17 | EKG ---
[address] [address] ELECTROCARDIOGRAM REPORT Name: CONSTANTINO LAIRD Room #: 452-P ADM IN M.R.#: [id number] Admission: 06/18/18 Attend Phys: Faustino Stapleton MD Discharge: Date of : 31 Report #: [id number] THIS REPORT FOR: //name// [facility] ED Test Date: 2018-06-17 Test Time: 23:17:24 Pat Name: CONSTANTINO LAIRD Department: Room: [facility] Gender: F Dance Teacher: cesario : 1935 Requested By: Layne Diaz Order Number: [id number] MD: Greg Worrell Measurements Intervals [place] Rate: 71 P: 78 FL: 118 QRS: 69 QRSD: 90 T: 61 QT: 407 QTc: 443 Interpretive Statements Sinus rhythm Borderline short [place] interval Poor R wave progression Compared to ECG 06/06/2018 20:34:21 No significant change was found Electronically Signed On 06-18-2018 15:33:03 CDT by Greg Worrell [email or web address] <ELECTRONICALLY SIGNED> By: Greg Worrell MD, [facility] 06/18/18 1533 2317 2317 Greg Worrell MD, [facility] /EPI
--- NOTE | ~2018-06-17 | O ---
[facility] [place] [address] OPERATIVE REPORT Name: CONSTANTINO LAIRD Room #: 452-P ADM IN M.R.#: [id number] Admission: 06/18/18 Attend Phys: Faustino Stapleton MD Discharge: Date of : 31 Report #: [id number] THIS REPORT FOR: //name// CC: Faustino Baird DATE OF SERVICE: 06/19/2018 PREOPERATIVE DIAGNOSIS: Right intertrochanteric femur fracture. POSTOPERATIVE DIAGNOSIS: Right intertrochanteric femur fracture. PROCEDURE: Right proximal femur fracture open reduction and internal fixation with antegrade TFN nail fixation. SURGEON: Kt Resendiz MD. INDICATIONS: This frail, confused 82-year-old female fell injuring the right hip. X-rays reveal a minimally displaced fracture in the intertrochanteric region. We discussed with the patient treatment options and elected to go ahead with surgical repair. DESCRIPTION OF PROCEDURE: The patient was taken to the operating room where she was placed under general anesthesia. Prophylactic intravenous antibiotics were administered. She was positioned on the fracture table with gentle traction and internal rotation, which resulted in a very satisfactory alignment of the fracture. The lateral aspect of the right hip and thigh were then meticulously prepped and draped. A skin incision was made just proximal to the greater trochanter and a guidewire passed through the tip of the trochanter into the intramedullary canal. The trochanter was opened with a reamer and a Synthes TFN nail inserted using a standard short length nail and a 10 mm diameter. This was advanced to an appropriate level and then a guidewire passed through the lateral femoral cortex into the mid lower femoral neck and head region. Its position was confirmed on 2 views with a C-arm. A 90 mm helical blade was then inserted, bringing the tip of the blade up to a point about 1 cm below the subchondral bone. This seated nicely and appeared to be secure. A distal locking screw was placed. The proximal locking nut was tightened down. The outrigger was removed. The incisions were gently irrigated and closed using 2-0 Monocryl and skin arthur. A sterile dressing was applied. The patient was awakened and returned to recovery room in satisfactory condition. <ELECTRONICALLY SIGNED> By: Kt Resendiz MD 06/21/18 1042 0952 1025 Kt Resendiz MD /nt
[~2018-06-17 23:08] MED LIST changes: +CATAPRES0.1 MG PER TUBE; +SYNTHROID100 MC1 PO
[2018-06-17 23:16] VITALS: BP 147/63
[2018-06-17 23:44] LABS: ABSOLUTE NEUTROPHILS 5.2 thou/uL (1.4-8.2); BASOPHILS 0.5 % (0.0-2.0); EOSINOPHILS 0.7 % (0.0-3.0); HEMATOCRIT 31.9 % (37.0-47.0); HEMOGLOBIN 10.5 gm/dL (12.0-15.0); LYMPHOCYTES 10.7 % (24.0-44.0); MCH 28.7 pg (26.0-34.0); MCV 86.8 fL (80.0-100.0); MONOCYTES 6.8 % (1.0-8.0); PLATELET COUNT 196 thou/uL (150-400); POLYS 81.3 % (36.0-66.0); RBC 3.68 mil/uL (4.20-5.00); RDW 13.9 % (10.5-14.5); WBC 6.4 thou/uL (4.0-11.0)
[2018-06-17 23:47] LABS: ANION GAP 2 mmol/L (7-16); BUN 20 mg/dL (7-18); CALCIUM 8.4 mg/dL (8.5-10.1); CHLORIDE 99 mmol/L (98-107); CO2 36 mmol/L (21-32); CREATININE 0.6 mg/dL (0.6-1.0); GLUCOSE 94 mg/dL (74-106); POTASSIUM 3.5 mmol/L (3.5-5.1); SODIUM 137 mmol/L (136-145)
[2018-06-17 23:56] LABS: TROPONIN-I <0.06 ng/mL (<0.06)
[2018-06-18 00:16] VITALS: BP 129/56
[2018-06-18 00:21] LABS: APTT 25.4 Seconds (24.5-32.8); PROTIME 10.7 Seconds (9.3-11.4)
[2018-06-18 00:26] VITALS: BP 124/70
[2018-06-18 02:00] VITALS: BP 128/58
[2018-06-18 06:56] LABS: URINE BILIRUBIN NEGATIVE (Negative); URINE BLOOD 1+ (Negative); URINE CLARITY CLOUDY; URINE COLOR YELLOW; URINE GLUCOSE-RANDOM* NEGATIVE (Negative); URINE KETONES NEGATIVE (Negative); URINE LEUKOCYTES NEGATIVE (Negative); URINE NITRITE NEGATIVE (Negative); URINE PROTEIN (DIPSTICK) TRACE (Negative); URINE UROBILINOGEN 0.2 E.U./dl (0.2-1.0)
[2018-06-18 07:13] LABS: AMORPHOUS PHOSPHATES Many /LPF (None Seen); CASTS None Seen /LPF (None Seen); SQUAMOUS 0-3 Few /LPF (0-3); URINE RBC 3-10 Few /HPF (0-2)
[2018-06-18 07:14] LABS: BACTERIA 1-9 Few /HPF (None Seen); URINE WBC None Seen /HPF (0-5)
[2018-06-18 07:50] VITALS: BP 137/71
[2018-06-18] MEDS ORDERED: SCOPOLAMINE1 EACH TRANSDERM (12:05)
[2018-06-18 16:09] VITALS: BP 107/50
[2018-06-18 19:25] VITALS: BP 100/81
[2018-06-19] VITALS (11 sets, daily range): BP systolic 105–148; BP diastolic 51–74
[2018-06-19 05:58] LABS: CALCIUM 8.5 mg/dL (8.5-10.1); CREATININE 0.7 mg/dL (0.6-1.0); POTASSIUM 3.7 mmol/L (3.5-5.1)
[2018-06-19 09:26] LABS: HEMATOCRIT 28.8 % (37.0-47.0); HEMOGLOBIN 9.6 gm/dL (12.0-15.0); MCH 28.9 pg (26.0-34.0); MCHC 33.2 g/dL (28.0-37.0); MCV 87.1 fL (80.0-100.0); RBC 3.31 mil/uL (4.20-5.00); RDW 13.7 % (10.5-14.5); WBC 9.9 thou/uL (4.0-11.0)
[2018-06-20 04:25] VITALS: BP 126/54
[2018-06-20 05:36] LABS: HEMATOCRIT 25.3 % (37.0-47.0); HEMOGLOBIN 8.2 gm/dL (12.0-15.0); MCH 28.5 pg (26.0-34.0); MCHC 32.5 g/dL (28.0-37.0); MCV 87.5 fL (80.0-100.0); RBC 2.89 mil/uL (4.20-5.00); RDW 14.2 % (10.5-14.5); WBC 13.4 thou/uL (4.0-11.0)
[2018-06-20 07:57] VITALS: BP 137/71
[2018-06-20 16:19] VITALS: BP 114/55
[2018-06-20 20:00] VITALS: BP 119/60
[2018-06-21 03:50] VITALS: BP 143/70
[2018-06-21 05:45] LABS: HEMATOCRIT 20.6 % (37.0-47.0); MCH 29.3 pg (26.0-34.0); MCHC 33.8 g/dL (28.0-37.0); MCV 86.7 fL (80.0-100.0); RBC 2.37 mil/uL (4.20-5.00); RDW 13.7 % (10.5-14.5); WBC 8.8 thou/uL (4.0-11.0)
[2018-06-21 08:06] VITALS: BP 81/46
[2018-06-21 12:52] VITALS: BP 81/46
[2018-06-21 17:01] VITALS: BP 144/64
[2018-06-21 19:19] VITALS: BP 129/56
[2018-06-22 03:45] VITALS: BP 151/86
[2018-06-22 06:27] LABS: HEMATOCRIT 23.9 % (37.0-47.0); HEMOGLOBIN 7.8 gm/dL (12.0-15.0); MCH 28.5 pg (26.0-34.0); MCHC 32.8 g/dL (28.0-37.0); MCV 86.8 fL (80.0-100.0); RBC 2.75 mil/uL (4.20-5.00); RDW 13.9 % (10.5-14.5); WBC 11.1 thou/uL (4.0-11.0)
[2018-06-22 06:42] LABS: CALCIUM 8.2 mg/dL (8.5-10.1); CREATININE 0.5 mg/dL (0.6-1.0); POTASSIUM 4.2 mmol/L (3.5-5.1)
[2018-06-22 07:21] VITALS: BP 167/81
[2018-06-22 15:17] VITALS: BP 121/60
[2018-06-22 20:28] VITALS: BP 120/76
[2018-06-23 04:04] VITALS: BP 140/68
[2018-06-23 07:15] LABS: HEMOGLOBIN 6.6 gm/dL (12.0-15.0); RDW 13.9 % (10.5-14.5)
[2018-06-23 07:16] LABS: HEMATOCRIT 20.2 % (37.0-47.0); MCH 28.5 pg (26.0-34.0); MCHC 32.7 g/dL (28.0-37.0); MCV 87.2 fL (80.0-100.0); RBC 2.31 mil/uL (4.20-5.00); WBC 6.9 thou/uL (4.0-11.0)
[2018-06-23 07:40] LABS: ANION GAP < 0 mmol/L (7-16); BUN 20 mg/dL (7-18); CALCIUM 7.9 mg/dL (8.5-10.1); CHLORIDE 100 mmol/L (98-107); CO2 34 mmol/L (21-32); CREATININE 0.5 mg/dL (0.6-1.0); GLUCOSE 105 mg/dL (74-106); POTASSIUM 4.2 mmol/L (3.5-5.1); SODIUM 133 mmol/L (136-145)
[2018-06-23 08:00] VITALS: BP 94/43
[2018-06-23 11:51] VITALS: BP 139/70; BP 141/70
[2018-06-23 12:00] VITALS: BP 145/69
[2018-06-23 16:00] VITALS: BP 136/61
[2018-06-23 16:34] LABS: HEMATOCRIT 27.1 % (37.0-47.0)
[2018-06-23 16:37] LABS: HEMOGLOBIN 9.1 gm/dL (12.0-15.0)
[2018-06-23 19:22] VITALS: BP 154/78
[2018-06-24 05:25] LABS: HEMATOCRIT 26.2 % (37.0-47.0); HEMOGLOBIN 8.6 gm/dL (12.0-15.0); MCH 28.3 pg (26.0-34.0); RBC 3.04 mil/uL (4.20-5.00); RDW 14.3 % (10.5-14.5); WBC 7.2 thou/uL (4.0-11.0)
[2018-06-24 05:28] VITALS: BP 175/59
[2018-06-24 05:41] LABS: CREATININE 0.6 mg/dL (0.6-1.0); POTASSIUM 3.9 mmol/L (3.5-5.1)
[2018-06-24 08:00] VITALS: BP 131/66
[2018-06-24 16:00] VITALS: BP 89/43
[2018-06-24 19:31] VITALS: BP 149/71
[2018-06-25 04:05] LABS: HEMATOCRIT 26.9 % (37.0-47.0); MCHC 33.5 g/dL (28.0-37.0); MCV 86.6 fL (80.0-100.0); RBC 3.11 mil/uL (4.20-5.00); RDW 14.2 % (10.5-14.5); WBC 7.9 thou/uL (4.0-11.0)
[2018-06-25 04:22] LABS: CALCIUM 8.5 mg/dL (8.5-10.1); CREATININE 0.6 mg/dL (0.6-1.0); POTASSIUM 4.1 mmol/L (3.5-5.1)
[2018-06-25 08:32] VITALS: BP 182/94
[2018-06-25 16:23] VITALS: BP 145/63
[2018-06-25 22:07] VITALS: BP 103/50
[2018-06-26 05:43] LABS: HEMATOCRIT 26.1 % (37.0-47.0); HEMOGLOBIN 8.7 gm/dL (12.0-15.0); MCH 28.9 pg (26.0-34.0); MCHC 33.1 g/dL (28.0-37.0); MCV 87.4 fL (80.0-100.0); RBC 2.99 mil/uL (4.20-5.00); RDW 14.1 % (10.5-14.5); WBC 6.4 thou/uL (4.0-11.0)
[2018-06-26 05:56] LABS: CREATININE 0.6 mg/dL (0.6-1.0); POTASSIUM 3.9 mmol/L (3.5-5.1)
[2018-06-26 08:00] VITALS: BP 174/82
[2018-06-26] MEDS ORDERED: LOPRESSOR25 PER TUBE (13:51)
[2018-06-26] MEDS ORDERED: HYDROCODONE-AP1 EAC6 PO (13:51)
== END 2018-06-26 17:31 | DRG 480 ==
LOC: ER 23:08 → EROBS 06-18 00:03 → 4W 06-18 00:03
PROVIDERS: Emergency Medicine; Hospitalist; Nurse Practitioner Family; Orthopaedic Surgery
PROC: 0QS604Z Reposition Right Upper Femur with Internal Fixation Device, Open Approach (ICD-10-PCS; principal; 2018-06-19)
PROC: 30233N1 Transfusion of Nonautologous Red Blood Cells into Peripheral Vein, Percutaneous Approach (ICD-10-PCS; 2018-06-23)
DX: S72.141A Displaced intertrochanteric fracture of right femur, initial encounter for closed fracture (principal); G93.40 Encephalopathy, unspecified; D62 Acute posthemorrhagic anemia; J44.9 Chronic obstructive pulmonary disease, unspecified; I73.9 Peripheral vascular disease, unspecified; I10 Essential (primary) hypertension; F32.9 Major depressive disorder, single episode, unspecified; M32.9 Systemic lupus erythematosus, unspecified; K22.2 Esophageal obstruction; R13.10 Dysphagia, unspecified; Z66 Do not resuscitate; I25.10 Atherosclerotic heart disease of native coronary artery without angina pectoris; Z93.1 Gastrostomy status; Z90.49 Acquired absence of other specified parts of digestive tract; Z95.5 Presence of coronary angioplasty implant and graft; Z95.820 Peripheral vascular angioplasty status with implants and grafts; Z88.0 Allergy status to penicillin; Z88.2 Allergy status to sulfonamides; Z88.8 Allergy status to other drugs, medicaments and biological substances; Z87.891 Personal history of nicotine dependence; Z99.81 Dependence on supplemental oxygen; Z82.49 Family history of ischemic heart disease and other diseases of the circulatory system; Z98.49 Cataract extraction status, unspecified eye; W01.0XXA Fall on same level from slipping, tripping and stumbling without subsequent striking against object, initial encounter; Y93.89 Activity, other specified; Y92.89 Other specified places as the place of occurrence of the external cause; Y99.8 Other external cause status
CPT/HCPCS: 10045; 50010; 50101; 50133; 50386; 51412; 51538; 51817; 52145; 52146; 52304; 56525; 57092; 62110; 62900; 70005

== ENCOUNTER 2018-07-28 06:38 | Inpatient (IN) | payer OTHER, MEDICARE ==
[~2018-07-28] VITALS: Ht 157.5 cm; Wt 47.6 kg
--- NOTE | ~2018-07-28 | EKG ---
[address] [address] ELECTROCARDIOGRAM REPORT Name: CONSTANTINO LAIRD Room #: 421-P [facility] IN M.R.#: [id number] Admission: 07/28/18 Attend Phys: Faustino Stapleton MD Discharge: 07/29/18 Date of : 31 Report #: [id number] THIS REPORT FOR: //name// [facility] ED Test Date: 2018-07-28 Test Time: 07:07:21 Pat Name: CONSTANTINO LAIRD Department: Room: [facility] Gender: F Goodyear Stitcher: arvind : 1935 Requested By: Ryder Marc Order Number: [id number] MD: Thomas Hamilton Measurements Intervals [place] Rate: 72 P: 90 [place]: 137 QRS: 62 QRSD: 88 T: 42 QT: 433 QTc: 474 Interpretive Statements Sinus rhythm Compared to ECG 07/06/2018 08:34:29 Electronically Signed On 07-31-2018 17:08:32 CDT by Thomas Hamilton [email or web address] <ELECTRONICALLY SIGNED> By: Thomas Hamilton MD 07/31/18 1708 6 6 Thomas Hamilton MD /DEDRICK
--- NOTE | ~2018-07-28 | EEG ---
[facility] [place] [address] ELECTROENCEPHALOGRAM Name: CONSTANTINO LAIRD Room #: 421-P ADM IN M.R.#: [id number] Admission: 07/28/18 Attend Phys: Faustino Stapleton MD Discharge: Date of : 31 Report #: [id number] THIS REPORT FOR: //name// CC: Faustino Mahajan DATE OF SERVICE: 07/28/2018 The patient is being evaluated for the possibility of seizure. EEG was done by placing the electrode by standard 10-20 system of electrode placement. Both referential and sequential montages were used for recording. Background activity in this patient's EEG is about 7-8 Hz and 30 microvolts. Moderate amount of artifact is present. The patient went to sleep that is associated with bilateral slowing, vertex sharp waves and sleep spindles which were symmetrical. Throughout the record, no active epileptiform activity was noticed. IMPRESSION: This is an abnormal EEG because it is disorganized and poorly formed. That is a nonspecific abnormality, which can occur with encephalopathy effect of psychotropic medication, dementia, postictal period, etc. No active epileptiform activity was noticed during this record. Thank you very much for this referral. By: 1610 1804 Ronald Ellis MD /nt
[~2018-07-28 06:38] MED LIST changes: +FERROUS SU220 MG/52 PER TUBE; +HYDRALAZINE 10M10 MG PO; +HYDROCODONE-AP1 EAC6 PO; +LOPRESSOR25 PER TUBE; +PEPCID20 MG PO; +SCOPOLAMINE1 EACH TRANSDERM
[2018-07-28 06:49] VITALS: BP 192/96
[2018-07-28 07:15] LABS: ABSOLUTE NEUTROPHILS 4.9 thou/uL (1.4-8.2); EOSINOPHILS 0.3 % (0.0-3.0); HEMATOCRIT 40.8 % (37.0-47.0); HEMOGLOBIN 13.2 gm/dL (12.0-15.0); LYMPHOCYTES 17.6 % (24.0-44.0); MCH 28.9 pg (26.0-34.0); MCHC 32.4 g/dL (28.0-37.0); MCV 89.1 fL (80.0-100.0); MONOCYTES 8.4 % (1.0-8.0); PLATELET COUNT 295 thou/uL (150-400); POLYS 72.7 % (36.0-66.0); RBC 4.58 mil/uL (4.20-5.00); RDW 15.8 % (10.5-14.5); WBC 6.8 thou/uL (4.0-11.0)
[2018-07-28] MEDS ORDERED: IPRAT-ALBUT 0.5-3 ML INH (07:19)
[2018-07-28 07:21] LABS: ANION GAP 3 mmol/L (7-16); BUN 18 mg/dL (7-18); CALCIUM 8.4 mg/dL (8.5-10.1); CHLORIDE 102 mmol/L (98-107); CO2 34 mmol/L (21-32); CREATININE 0.8 mg/dL (0.6-1.0); GLUCOSE 106 mg/dL (74-106); SODIUM 139 mmol/L (136-145)
[2018-07-28 07:22] LABS: POTASSIUM 3.9 mmol/L (3.5-5.1)
[2018-07-28 07:27] LABS: APTT 25.3 Seconds (24.5-32.8); PROTIME 10.7 Seconds (9.3-11.4)
[2018-07-28 07:30] LABS: ALBUMIN 3.4 g/dL (3.4-5.0); SGOT 35 U/L (15-37); SGPT 26 U/L (30-65); TOTAL BILIRUBIN 0.5 mg/dL (<0.1-1.0); TOTAL PROTEIN 7.4 g/dL (6.4-8.2); TROPONIN-I <0.06 ng/mL (<0.06)
[2018-07-28 07:59] LABS: URINE BILIRUBIN NEGATIVE (Negative); URINE BLOOD NEGATIVE (Negative); URINE CLARITY CLEAR; URINE COLOR YELLOW; URINE GLUCOSE-RANDOM* NEGATIVE (Negative); URINE KETONES NEGATIVE (Negative); URINE LEUKOCYTES 2+ (Negative); URINE NITRITE POSITIVE (Negative); URINE PROTEIN (DIPSTICK) NEGATIVE (Negative); URINE UROBILINOGEN 0.2 E.U./dl (0.2-1.0)
[2018-07-28 08:05] LABS: AMP/METHAMP Negative (Negative); BENZODIAZEPINES Negative (Negative); COCAINE Negative (Negative); METHADONE Negative (Negative); OPIATES POSITIVE (Negative); PCP Negative (Negative)
[2018-07-28 08:14] LABS: BARBITURATES Negative (Negative)
[2018-07-28 08:20] LABS: CASTS None Seen /LPF (None Seen); SQUAMOUS 0-3 Few /LPF (0-3)
[2018-07-28 08:21] LABS: CRYSTALS None Seen /LPF (None Seen); URINE RBC 0-2 Rare /HPF (0-2); URINE WBC 6-15 Few /HPF (0-5)
[2018-07-28 08:22] LABS: WBC CLUMPS Occasional (None Seen)
[2018-07-28 09:15] VITALS: BP 130/57
[2018-07-28 10:46] VITALS: BP 158/69
[2018-07-28 15:43] VITALS: BP 198/92
[2018-07-28 19:20] VITALS: BP 165/65
[2018-07-29 04:05] VITALS: BP 126/70
[2018-07-29 08:20] VITALS: BP 132/62
[2018-07-29 10:28] LABS: HEMATOCRIT 39.7 % (37.0-47.0); HEMOGLOBIN 12.9 gm/dL (12.0-15.0); MCHC 32.5 g/dL (28.0-37.0); MCV 89.2 fL (80.0-100.0); RBC 4.45 mil/uL (4.20-5.00); RDW 15.9 % (10.5-14.5); WBC 5.1 thou/uL (4.0-11.0)
[2018-07-29 10:50] LABS: ALBUMIN 3.2 g/dL (3.4-5.0); CALCIUM 8.4 mg/dL (8.5-10.1); CREATININE 0.7 mg/dL (0.6-1.0); MAGNESIUM 2.5 mg/dL (1.8-2.4); POTASSIUM 3.8 mmol/L (3.5-5.1); TOTAL BILIRUBIN 0.3 mg/dL (<0.1-1.0); TOTAL PROTEIN 7.1 g/dL (6.4-8.2)
== END 2018-07-29 15:49 | DRG 100 ==
LOC: ER 06:38 → EROBS 08:10 → 4E 10:47
PROVIDERS: Emergency Medicine; Internal Medicine
DX: R56.9 Unspecified convulsions (principal); E43 Unspecified severe protein-calorie malnutrition; N39.0 Urinary tract infection, site not specified; J44.9 Chronic obstructive pulmonary disease, unspecified; I10 Essential (primary) hypertension; I25.10 Atherosclerotic heart disease of native coronary artery without angina pectoris; I73.9 Peripheral vascular disease, unspecified; F32.9 Major depressive disorder, single episode, unspecified; K22.2 Esophageal obstruction; Z66 Do not resuscitate; M32.9 Systemic lupus erythematosus, unspecified; R13.10 Dysphagia, unspecified; Z93.1 Gastrostomy status; Z90.49 Acquired absence of other specified parts of digestive tract; Z95.5 Presence of coronary angioplasty implant and graft; Z95.820 Peripheral vascular angioplasty status with implants and grafts; Z87.81 Personal history of (healed) traumatic fracture; Z88.1 Allergy status to other antibiotic agents; Z88.0 Allergy status to penicillin; Z88.2 Allergy status to sulfonamides; Z88.8 Allergy status to other drugs, medicaments and biological substances; Z87.891 Personal history of nicotine dependence; Z82.49 Family history of ischemic heart disease and other diseases of the circulatory system; Z98.49 Cataract extraction status, unspecified eye; Z79.899 Other long term (current) drug therapy
CPT/HCPCS: 10183

== ENCOUNTER 2018-09-29 11:28 | Emergency (ER) | payer OTHER, MEDICARE ==
[~2018-09-29] VITALS: Ht 157.5 cm; Wt 41.3 kg
--- NOTE | ~2018-09-29 | EKG ---
[address] [place] [address] ELECTROCARDIOGRAM REPORT Name: CONSTANTINO LAIRD [facility] [id number] Admission: 09/29/18 Attend Phys: Discharge: 09/29/18 Date of : 31 Report #: [id number] THIS REPORT FOR: //name// [facility] ED Test Date: 2018-09-29 Test Time: 11:40:44 Pat Name: CONSTANTINO LAIRD Department: Room: Gender: F Coatings Inspector: luna : 1935 Requested By: Crow Segal Order Number: [id number] MD: Jonathan Bishop Measurements Intervals [place] Rate: 64 P: 63 [place]: 122 QRS: 85 QRSD: 108 T: 55 QT: 450 QTc: 465 Interpretive Statements Sinus rhythm Borderline right axis deviation Anteroseptal infarct, old Compared to ECG 07/28/2018 07:07:21 no significant changes Electronically Signed On 10-01-2018 22:38:45 SUPERVISOR ASSEMBLING by Jonathan Bishop [email or web address] <ELECTRONICALLY SIGNED> By: Jonathan Bishop MD 10/01/18 2238 1140 1140 Jonathan Bishop MD /DEDRICK
[~2018-09-29 11:28] MED LIST changes: +IPRAT-ALBUT 0.5-3 ML INH
[2018-09-29 12:30] LABS: ABSOLUTE NEUTROPHILS 6.3 thou/uL (1.4-8.2); BASOPHILS 0.7 % (0.0-2.0); EOSINOPHILS 0.3 % (0.0-3.0); HEMOGLOBIN 14.4 gm/dL (12.0-15.0); LYMPHOCYTES 13.2 % (24.0-44.0); MCH 28.7 pg (26.0-34.0); MCHC 32.8 g/dL (28.0-37.0); MCV 87.6 fL (80.0-100.0); MONOCYTES 6.5 % (1.0-8.0); PLATELET COUNT 230 thou/uL (150-400); POLYS 79.3 % (36.0-66.0); RBC 5.02 mil/uL (4.20-5.00); RDW 14.2 % (10.5-14.5)
[2018-09-29 12:38] LABS: ANION GAP 7 mmol/L (7-16); BUN 27 mg/dL (7-18); CALCIUM 8.8 mg/dL (8.5-10.1); CHLORIDE 101 mmol/L (98-107); CO2 33 mmol/L (21-32); CREATININE 0.9 mg/dL (0.6-1.0); GLUCOSE 118 mg/dL (74-106); POTASSIUM 3.5 mmol/L (3.5-5.1); SODIUM 141 mmol/L (136-145)
[2018-09-29 12:44] LABS: URINE BILIRUBIN NEGATIVE (Negative); URINE BLOOD TRACE (Negative); URINE CLARITY CLEAR; URINE COLOR YELLOW; URINE GLUCOSE-RANDOM* NEGATIVE (Negative); URINE KETONES NEGATIVE (Negative); URINE NITRITE-REFLEX NEGATIVE (Negative); URINE PROTEIN (DIPSTICK) NEGATIVE (Negative); URINE SPECIFIC GRAVITY 1.015 (1.005-1.035); URINE UROBILINOGEN 0.2 E.U./dl (0.2-1.0)
[2018-09-29 12:47] LABS: TROPONIN-I <0.06 ng/mL (<0.06)
[2018-09-29 12:49] LABS: URINE LEUKOCYTES-REFLEX TRACE (Negative)
[2018-09-29] MEDS ORDERED: LEVAQUIN 500 M500 M2 PO (13:15)
[2018-09-29] MEDS ORDERED: PEPCID20 MG PER TUBE (13:16)
[2018-09-29] MEDS ORDERED: LOPRESSOR25 PER TUBE (13:18)
[2018-09-29] MEDS ORDERED: SYNTHROID50 MCG PER TUBE (13:19)
[2018-09-29 15:55] VITALS: BP 140/50
== END 2018-09-29 16:50 ==
LOC: ER 11:28
PROVIDERS: Physician Assistant
DX: S50.312A Abrasion of left elbow, initial encounter (principal); S80.811A Abrasion, right lower leg, initial encounter; I95.1 Orthostatic hypotension; J44.9 Chronic obstructive pulmonary disease, unspecified; I10 Essential (primary) hypertension; M32.9 Systemic lupus erythematosus, unspecified; I25.10 Atherosclerotic heart disease of native coronary artery without angina pectoris; F32.9 Major depressive disorder, single episode, unspecified; Z88.0 Allergy status to penicillin; Z91.048 Other nonmedicinal substance allergy status; Z90.49 Acquired absence of other specified parts of digestive tract; Z88.8 Allergy status to other drugs, medicaments and biological substances; Z90.89 Acquired absence of other organs; Z95.5 Presence of coronary angioplasty implant and graft; Z88.2 Allergy status to sulfonamides; Z87.891 Personal history of nicotine dependence; W18.39XA Other fall on same level, initial encounter; Y92.89 Other specified places as the place of occurrence of the external cause; Y93.89 Activity, other specified; Y99.8 Other external cause status

== ENCOUNTER 2019-07-25 02:04 | Emergency (ER) | payer OTHER, MEDICARE ==
[~2019-07-25] VITALS: Ht 157.5 cm; Wt 24.9 kg
[~2019-07-25 02:04] MED LIST changes: +PEPCID20 MG PER TUBE; +SYNTHROID50 MCG PER TUBE
[2019-07-25 02:46] LABS: HEMOGLOBIN 13.2 gm/dL (12.0-15.0); MCHC 31.7 g/dL (28.0-37.0)
[2019-07-25 02:48] LABS: ABSOLUTE NEUTROPHILS 2.8 thou/uL (1.4-8.2); BASOPHILS 0.9 % (0.0-2.0); EOSINOPHILS 2.6 % (0.0-3.0); HEMATOCRIT 41.7 % (37.0-47.0); LYMPHOCYTES 20.8 % (24.0-44.0); MCH 28.1 pg (26.0-34.0); MCV 88.5 fL (80.0-100.0); PLATELET COUNT 155 thou/uL (150-400); POLYS 67.7 % (36.0-66.0); RBC 4.72 mil/uL (4.20-5.00); RDW 15.2 % (10.5-14.5); WBC 4.1 thou/uL (4.0-11.0)
[2019-07-25 02:56] LABS: ANION GAP 5 mmol/L (7-16); BUN 19 mg/dL (7-18); CALCIUM 8.8 mg/dL (8.5-10.1); CHLORIDE 102 mmol/L (98-107); CO2 36 mmol/L (21-32); CREATININE 0.8 mg/dL (0.6-1.0); GLUCOSE 98 mg/dL (74-106); POTASSIUM 3.3 mmol/L (3.5-5.1); SODIUM 143 mmol/L (136-145)
[2019-07-25 03:04] LABS: TROPONIN-I <0.06 ng/mL (<0.06)
[2019-07-25 05:24] VITALS: BP 155/72
--- NOTE | 2019-07-25 08:13 | EKG ---
[address] [address] ELECTROCARDIOGRAM REPORT Name: CONSTANTINO LAIRD [facility] [id number] ������������������ Admission: 07/25/19 ������������������ Attend Phys: Discharge: ������������������ Date of : 31 Report #: [id number] ����������������������������������������������������������������� [id number] THIS REPORT FOR: //name// [facility] ED Test Date: 2019-07-25 Test Time: 02:12:55 Pat Name: CONSTANTINO LAIRD Department: Room: Gender: F Glaucoma Specialist: DIANN : 1935 Requested By: Dario Jones Order Number: [id number] MD: Thomas Hamilton Measurements Intervals [place] Rate: 70 P: 92 FL: 162 QRS: 61 QRSD: 81 T: 56 QT: 404 QTc: 436 Interpretive Statements Sinus rhythm Compared to ECG 09/29/2018 11:40:44 Myocardial infarct finding no longer present Electronically Signed On 07-25-2019 8:12:53 CDT by Thomas Hamilton [email or web address] ��������������������������������������������� <ELECTRONICALLY SIGNED> ���������������������������������������� By: Thomas Hamilton MD ��������������������������������������������� 07/25/19 08 1 0212 Thomas Hamilton MD /DEDRICK
== END 2019-07-25 05:24 | disposition home or self-care (01) ==
LOC: ER 02:04
PROVIDERS: Emergency Medicine
DX: R55 Syncope and collapse (principal); R07.89 Other chest pain; J44.9 Chronic obstructive pulmonary disease, unspecified; I10 Essential (primary) hypertension; I25.10 Atherosclerotic heart disease of native coronary artery without angina pectoris; M32.9 Systemic lupus erythematosus, unspecified; F32.9 Major depressive disorder, single episode, unspecified; M43.22 Fusion of spine, cervical region; Z90.89 Acquired absence of other organs; Z90.49 Acquired absence of other specified parts of digestive tract; Z98.890 Other specified postprocedural states; Z93.1 Gastrostomy status; Z95.2 Presence of prosthetic heart valve; Z88.0 Allergy status to penicillin; Z88.2 Allergy status to sulfonamides; Z88.8 Allergy status to other drugs, medicaments and biological substances; Z91.048 Other nonmedicinal substance allergy status; Z88.1 Allergy status to other antibiotic agents; Z87.891 Personal history of nicotine dependence